=== PATIENT | male | born 1965 | race Caucasian/White ===

== ENCOUNTER → 2016-11-20 | Day surgery (SDC) | payer OTHER ==
[2016-11-08 07:50] VITALS: Ht 182.9 cm; Wt 81.8 kg
[~2016-11-20] VITALS: Ht 182.9 cm; Wt 81.8 kg
[~2016-11-20] MED LIST: ALLO300T2 PO; AMOX875T PO; COLC0.6T54 PO; FLNIN NAE; LIDOCAINE HCL 2% 2 ML VIAL (20MG/ML) ONE; PANT40TA PO; PROPOFOL IV EMULSION 10 MG/ML 20 ML VIAL IV ONE; SALI0.6517 NAE; SODIUM CHLORIDE 0.9% 500ML 500 ML IV ONE; VALA500T60 PO
--- NOTE | 2016-11-20 09:59 | Endo History and Physical ---
History & Physical Date of Service: Nov 20, 2016. Chief Complaint: DYSPHAGIA, WEIGHT LOSS Referring Physician: DR CLIFFORD History of Present Illness Dysphagia, history of Schatzki ring. Past Surgical History Hx Cardiac Surgery: No Hx Internal Defibrillator: No Hx Pacemaker: No Hx Abdominal Surgery: Yes (HERNIA REPAIR) Hx of Implantable Prosthesis: No Hx Post-Op Nausea and Vomiting: No Hx Cancer Surgery: No Hx Thoracic Surgery: No Hx Orthopedic: Yes (LT/RT TKA, LT/RT ELBOW) Hx Urinary Tract Surgery: No Family History None Social History Smoking Status: Current Every Day Smoker Hx Substance Use: No Hx Alcohol Use: No Allergies Coded Allergies: Indomethacin (Verified Allergy, Severe, INDOCIN THROAT SWELLING SEVERE REACTION, 11/20/16) Prednisone (Unverified Allergy, Mild, "CORTICOSTEROID PSYCHOSIS", 11/20/16) Warfarin (Verified Adverse Reaction, Unknown, DIFFICULTY REGULATING LEVELS , 11/20/16) Current Medications Reported Home Medications Medications Dose Route/Sig Max Daily Dose Days Date Category Dose Instructions [place] Nasal (Sodium Chloride) [place] 2 Sprays JOSEPH PRN 11/30/15 Reported Protonix (Pantoprazole Sodium) 40 Mg Tab 40 Mg PO BID PRN 11/30/15 Reported Valtrex (Valacyclovir HCl) 500 Mg Tab 500 Mg PO TID 11/30/15 Reported PRN FOR RECURRENT EPISODES. Colchicine 0.6 Mg Tab 0.6 Mg PO QPM 11/30/15 Reported Zyloprim (Allopurinol) 300 Mg Tab 300 Mg PO QPM 11/30/15 Reported Flonase Nasal [place] * (Fluticasone Propionate) [place] 2 Sprays JOSEPH DAILY PRN 10/24/10 Reported Vital Signs Weight (Kilograms): 81.82 Height (Feet): 6 Height (Inches): 0 Date Time Temp Pulse Resp B/P (MAP) Pulse Ox O2 Delivery O2 Flow Rate FiO2 11/20/16 09:19 37.0 93 18 113/81 (92) 98 Room Air Physical Exam General Appearance: WD/WN, no apparent distress Respiratory/Chest: Auscultation: breath sounds normal, no wheezing Cardiovascular: Heart Auscultation: RRR, no murmurs Abdomen: Inspection & Palpation: soft, no tenderness, guarding & rebound Assessment and Plan EGD today.
--- NOTE | 2016-11-20 10:54 | Anesthesiology Progress Note ---
Anesthesia Post Op Note Date & Time Nov 20, 2016 at 10:54 Vital Signs Pain Intensity: 0 Vital Signs Past 12 Hours Date Time Temp Pulse Resp B/P (MAP) Pulse Ox O2 Delivery O2 Flow Rate FiO2 11/20/16 10:38 70 16 96/58 (71) 93 Room Air 11/20/16 09:19 37.0 93 18 113/81 (92) 98 Room Air Notes Mental Status: alert / awake / arousable, participated in evaluation Pt Amnestic to Procedure: Yes Nausea / Vomiting: adequately controlled Pain: adequately controlled Airway Patency, RR, SpO2: stable & adequate BP & HR: stable & adequate Hydration State: stable & adequate Anesthetic Complications: no major complications apparent
[2016-11-20 11:08] VITALS: BP 97/71; PULSE 61; O2SAT 97
--- NOTE | 2016-11-20 11:09 | Discharge Instructions ---
Endoscopy Patient Instructions Date / Procedure(s) Performed Nov 20, 2016. EGD Allergy Information Coded Allergies: Indomethacin (Verified Allergy, Severe, INDOCIN THROAT SWELLING SEVERE REACTION, 11/20/16) Prednisone (Unverified Allergy, Mild, "CORTICOSTEROID PSYCHOSIS", 11/20/16) Warfarin (Verified Adverse Reaction, Unknown, DIFFICULTY REGULATING LEVELS , 11/20/16) Discharge Date / Findings Nov 20, 2016. Schatzki ring dilated. Small bowel biopsy obtained. Medication Instructions Restart Stopped Medication(s): Restart medications today. Provider Instructions Activity Restrictions - No exercising or heavy lifting for 24 hours. - Do not drink alcohol the day of the procedure. - Do not drive a car or operate machinery until the day after the procedure. - Do not make any important decisions or sign important papers in 24 hours after the procedure. Following Day: - Return to full activity which may include returning to work/school. Diet Clear liquid breakfast and lunch. Then eat your usual diet if not nauseated. Treatment For Common After Affects For mild abdominal pain, bloating, or excessive gas: - Rest - Eat lightly - Lie on right side Follow-Up Information Follow-up with DR CLIFFORD as scheduled Anesthesia Information What You Should Know You have had a procedure that required some medicine to reduce anxiety and discomfort. This treatment is called moderate sedation. After receiving the treatment, you may be sleepy, but you will be able to breathe on your own. The effects of the treatment may last for several hours. Follow these instructions along with Activity/Diet recommendations noted above: * Do NOT do anything where dizziness or clumsiness would be dangerous. * Rest quietly at home today, then you can be up and about tomorrow. * Have a responsible person stay with you the rest of today. * You may have had an I.V. today. If so, you may take the dressing off later today. Recommendations Call your doctor if: * Pain in chest * Trouble breathing * Continuous vomiting for more than 24 hours * Temperature above 101 degrees * Severe abdominal pain or bloating * Pain not relieved by pain medicine ordered * There is increased drainage or redness from any incision * A large amount of rectal bleeding greater than 2-3 tablespoons. (If you had a polyp/s removed or have hemorrhoids, a small amount of blood - from the rectum is to be expected.) * You have any unanswered questions or concerns. IN THE EVENT OF A SERIOUS EMERGENCY, GO TO THE NEAREST EMERGENCY ROOM Your discharge instructions were prepared by provider Dario Seay. Patient Instructions Signature Page Zackary Zhou Patient (or Guardian) Signature/Date: I have read and understand the instructions given to me by my caregivers. Caregiver/RN/Doctor Signature/Date: The above-named patient and/or guardian has received patient instructions on this date. + Original Patient Signature Page (only) stays with chart. Please make copy for patient.
--- NOTE | 2016-11-21 00:14 | GI REPORT ---
Procedure Date: 11/20/2016 10:07 AM Procedure: Upper GI endoscopy Indications: Dysphagia, Weight loss Medicines: Propofol per Anesthesia Complications: No immediate complications. Estimated blood loss: None. Estimated Blood Loss: Estimated blood loss: none. Procedure: Pre-Anesthesia Assessment: - Prior to the procedure, a History and Physical was performed, and patient medications, allergies and sensitivities were reviewed. The patient's tolerance of previous anesthesia was reviewed. - ASA Grade Assessment: III - A patient with severe systemic disease. After obtaining informed consent, the endoscope was passed under direct vision. Throughout the procedure, the patient's blood pressure, pulse, and oxygen saturations were monitored continuously. The scope was introduced through the mouth, and advanced to the third part of the duodenum. Small bowel enteroscopy was deemed necessary. The upper GI endoscopy was accomplished without difficulty. The patient tolerated the procedure well. Findings: A mild Schatzki ring (acquired) was found at the gastroesophageal junction at 36 cm from the incisors. A guidewire was placed and the scope was withdrawn. Dilation was performed with an Tajik dilator with mild resistance at 51 Fr and 54 Fr. There was a mucosal tear at the GE junction. A hiatus hernia was present. The stomach was normal. The examined duodenum was normal. Biopsies for histology were taken with a cold forceps for evaluation of celiac disease. Impression: - Mild Schatzki ring. Dilated. - Hiatus hernia. - Normal stomach. - Normal examined duodenum. Biopsied. Recommendation: - Await pathology results. - Observe patient's clinical course. - Discharge patient to home (with escort). Dario Seay M.D. Dario Seay MD 11/20/2016 10:40:34 AM This report has been signed electronically. Note Initiated On: 11/20/2016 10:07 AM I attest to the content of the Intraoperative Record and orders documented therein, exceptions below
== END | disposition home or self-care (01) ==
LOC: C.GI 09:03
PROVIDERS: ATTEND Internal Medicine Gastroenterology
DX: R13.10 Dysphagia, unspecified (principal); R63.4 Abnormal weight loss; K22.2 Esophageal obstruction; K44.9 Diaphragmatic hernia without obstruction or gangrene; Z87.891 Personal history of nicotine dependence; Z96.653 Presence of artificial knee joint, bilateral; K21.9 Gastro-esophageal reflux disease without esophagitis; Z86.19 Personal history of other infectious and parasitic diseases

== ENCOUNTER → 2017-04-01 | Outpatient (CLI) | payer OTHER ==
[~2017-04-01] MED LIST changes: -AMOX875T PO; -LIDOCAINE HCL 2% 2 ML VIAL (20MG/ML) ONE; -PROPOFOL IV EMULSION 10 MG/ML 20 ML VIAL IV ONE; -SODIUM CHLORIDE 0.9% 500ML 500 ML IV ONE
--- NOTE | 2017-04-01 07:39 | DIAGNOSTIC IMAGING REPORT ---
(BARIUM SWALLOW) ESOPHAGUS CLINICAL HISTORY: R13.10,[id number]. History of esophageal dilatation. COMPARISON STUDY: None FLUOROSCOPY TIME: 1.3 minutes. NUMBER OF FLUOROSCOPIC IMAGES: 21 FINDINGS: The patient swallowed effervescent granules and barium without difficulty. Spot films of the pharynx examination were normal. There is a small sliding hiatal hernia.] [ There is a distal esophageal ring. This did not impede the passage of a one half inch barium tablet. There is minimal nonspecific nodularity of the gastric cardia. IMPRESSION: 1. Small sliding hiatal hernia with a distal esophageal ring. This did not impede the passage of a one half inch barium tablet 2. Minimal nonspecific nodularity of the gastric cardia. Electronically signed by: Antonoi Crow M.D. 04/01/2017 7:37 AM Dictated Date/Time: 04/01/2017 7:34 AM
== END | disposition home or self-care (01) ==
LOC: C.RAD 06:58
PROVIDERS: ATTEND Internal Medicine Gastroenterology
DX: R13.10 Dysphagia, unspecified (principal); R12 Heartburn

== ENCOUNTER 2022-08-21 07:26 | Observation (INO) ==
[2022-08-21] MEDS ORDERED: SODIUM CHLORIDE 0.9% 1000ML 1,000 ML IV ONE (07:52)
--- NOTE | 2022-08-21 08:02 | Emergency Department Note ---
History of Present Illness General Chief complaint: Syncope (Near Syncope) Stated complaint: DIZZINESS,BLACKING OUT Time Seen by Provider: 08/21/22 07:36 History of Present Illness Maximum Pain Intensity: 6 61-year-old male who presents emergency department for evaluation of dizziness and left sided headache. Patient states around 615 this morning he started to feel dizzy and like he was going to pass out. He denies loss of consciousness. He reports associated headache behind his left eye as well as bilateral blurry vision that also started this morning. He states similar episodes have happened in the past and he has a history of low blood pressure. He notes when his blood pressure is low he feels dizzy however symptoms usually self resolve after 2 to 3 minutes. Today they seem to be lasting longer than usual prompting evaluation in the ED. He notes a history of migraines but states this headache does not feel similar. Usually his migraine symptoms are behind both eyes. He has not had one in years. He also reports for the last few days he has felt like both of his hands have reduced ice puller strength. This did seem to start with some neck pain he developed 3 days ago which he related to sleeping wrong. He denies any lower extremity weakness, slurred speech, facial droop, amaurosis fugax, memory loss or confusion. He denies fever/chills, nausea/vomiting, chest pain, shortness of breath, abdominal pain, diarrhea/constipation, urinary symptoms. He is not on any medications other than for gout. He denies drug or alcohol use. Denies previous history of VA or stroke. Home Medications Medication Instructions Recorded Confirmed Type allopurinol 300 mg tablet 300 mg PO DAILY 08/21/22 08/21/22 History colchicine 0.6 mg tablet 0.6 mg PO BID PRN gout flare 08/21/22 08/21/22 History fluticasone propionate 50 2 spray intranasal DAILY 08/21/22 08/21/22 History mcg/actuation nasal spray,suspension pantoprazole 40 mg tablet,delayed 40 mg PO DAILY 08/21/22 08/21/22 History release Allergies Allergy/AdvReac Type Severity Reaction Status Date / Time indomethacin Allergy Severe INDOCIN Verified 11/20/16 09:14 THROAT SWELLING SEVERE REACTION prednisone Allergy Mild "CORTICOSTEROID Unverified 11/20/16 09:14 PSYCHOSIS" warfarin AdvReac Unknown DIFFICULTY Verified 08/23/17 09:14 REGULATING LEVELS Past Med/Surg History Medical History BPH (benign prostatic hyperplasia) Chronic rhinitis Esophageal dysphagia Gout History of Clostridioides difficile infection HSV-2 infection Schatzki's ring Surgical History H/O nasal septoplasty H/O umbilical hernia repair History of bilateral knee arthroplasty History of elbow surgery History of shoulder surgery S/P left knee arthroscopy Family History Mother Cancer Social History Smoking Status: Former smoker Hx Alcohol Use: No Preferred Language: [place] Feels Safe at Home: Yes Physical Exam Vital Signs Vital Signs - 24 hr 08/21/22 07:29 08/21/22 07:52 08/21/22 07:56 Temperature 36.6 C Temperature Source Temporal Artery Scan Pulse Rate - Lying 66 Pulse Rate - Sitting 66 Pulse Rate - Standing 62 Pulse Rate 70 Pulse Rate [Left Finger] 71 Pulse Rhythm [Left Finger] Pulse Strength [Left Finger] Respiratory Rate 18 14 Respiratory Effort / Characteristics Respiratory Depth Respiratory Pattern Blood Pressure - Lying 124/69 Blood Pressure - Sitting 139/89 Blood Pressure- Standing 125/89 Blood Pressure 123/79 Blood Pressure [Left Arm] 124/94 Blood Pressure Mean 93 Blood Pressure Mean [Left Arm] 104 Blood Pressure Position [Left Arm] Sitting Pulse Oximetry 96 92 Oxygen Delivery Method Room Air Sepsis Recent Fever Within 48 Hours No Sepsis New/Unexplained Change in Mental Status N/A Sepsis Action Taken by Nursing No Action Required 08/21/22 08:35 08/21/22 09:21 08/21/22 11:05 Temperature Temperature Source Pulse Rate - Lying Pulse Rate - Sitting Pulse Rate - Standing Pulse Rate 69 Pulse Rate [Left Finger] 65 61 Pulse Rhythm [Left Finger] Regular Regular Pulse Strength [Left Finger] Normal Normal Respiratory Rate 18 20 Respiratory Effort / Characteristics Non-Labored Spontaneous Non-Labored Spontaneous Respiratory Depth Normal Normal Respiratory Pattern Regular Regular Blood Pressure - Lying Blood Pressure - Sitting Blood Pressure- Standing Blood Pressure Blood Pressure [Left Arm] 136/88 128/90 Blood Pressure Mean Blood Pressure Mean [Left Arm] 104 102 Blood Pressure Position [Left Arm] Sitting Sitting Pulse Oximetry 98 98 Oxygen Delivery Method Room Air Room Air Sepsis Recent Fever Within 48 Hours Sepsis New/Unexplained Change in Mental Status Sepsis Action Taken by Nursing Constitutional: alert and oriented x3. no acute distress. HEENT: normocephalic, atraumatic. normal conjunctiva. Pinpoint pupils bilaterally, reactive to light. light sensitivity. EOM's grossly intact. TMs pearly manning without effusion. Pharynx pink without exudate. Tonsils nonenlarged. Mucus membranes moist Neck: neck is supple, nontender. no carotid bruits present bilaterally. Midline C-spine nontender Respiratory: lungs are clear to auscultation without wheezes, rhonchi, or rales bilaterally. equal chest rise. normal respiratory effort, no accessory muscle use. Cardiovascular: normal heart sounds without murmur. regular rate and rhythm. GI: abdomen is soft, nontender. No palpable masses. No rebound tenderness or guarding. No CVA tenderness MSK: Moves all 4 extremities spontaneously. Midline thoracic and lumbar spine nontender Peripheral vascular: Upper extremities warm and well perfused with palpable radial pulses. Sensation intact Neuro: Mild right upper/lower extremity weakness compared to left +3 left upper/lower extremity strength +4. CNII-XII intact. Speech clear, tongue midline, without facial droop. Answers questions appropriately and follows commands. Slow normal finger-nose test. Psych:appropriate mood and affect. Course Administered Medications Sodium Chloride (Nss 1000ml) 1,000 mls @ 999 mls/hr IV .Q1H1M STA Stop: 08/21/22 12:21 Last Admin: 08/21/22 11:22 Dose: 999 mls/hr Documented By: SAFIA Discontinued Medications Acetaminophen/Butalbital/Caffeine (Butalbital/Acetamin/Caffeine Tab) 1 tab PO NOW STA Stop: 08/21/22 10:39 Last Admin: 08/21/22 11:20 Dose: 1 tab Documented By: SAFIA Sodium Chloride (Nss 1000ml) 1,000 mls @ 999 mls/hr IV .Q1H1M ONE Stop: 08/21/22 08:52 Last Admin: 08/21/22 07:58 Dose: 999 mls/hr Documented By: SAFIA Acetaminophen (Ofirmev) 1,000 mg in 100 mls @ 400 mls/hr IV NOW Stop: 08/21/22 10:01 Last Admin: 08/21/22 10:36 Dose: 400 mls/hr Documented By: SAFIA Ioversol (Optiray 320 500ml) 114 ml IV ONCE ONE Stop: 08/21/22 09:19 Last Admin: 08/21/22 09:18 Dose: 114 ml Documented By: BUBBA Medical Decision Making Differential Diagnosis CVA, VA, intracranial hemorrhage, cardiac arrhythmia, electrolyte abnormalities, migraine, infection, vertebral artery dissection, hypotension, hypoglycemia, hypovolemia, cervical muscle strain as well as other pathologies Laboratory Data Attestation: I reviewed the patient's lab results. 08/21/22 07:42 08/21/22 07:42 Lab Results 08/21/22 08/21/22 08/21/22 Range/Units 07:42 07:42 07:42 WBC 6.43 (4.8-10.8) K/ul RBC 5.72 (4.70-6.10) M/uL Hgb 16.3 (14.0-18.0) g/dl Hct 49.7 (42.0-52.0) % MCV 86.9 (80.0-100.0) fL MCH 28.5 (25.0-34.0) pg MCHC 32.8 (32.0-36.0) g/dL RDW Std Deviation 41.9 (36.4-46.3) fL RDW Coeff of Humberto 13.5 (11.5-14.5) % Plt Count 186 (130-400) K/uL MPV 11.2 (9.4-12.4) fL Immature Gran % (Auto) 0.8 % Neut % (Auto) 52.7 % Lymph % (Auto) 30.5 % Childress % (Auto) 10.6 % Eos % (Auto) 3.7 % Baso % (Auto) 1.7 % Neut # (Auto) 3.39 (1.40-6.50) K/uL Lymph # (Auto) 1.96 (1.2-3.4) K/uL Childress # (Auto) 0.68 H (0.11-0.59) K/uL Eos # (Auto) 0.24 (0-0.50) K/uL Baso # (Auto) 0.11 (0-0.2) K/uL Immature Gran # (Auto) 0.05 (0.01-0.20) K/uL PT 10.9 (9.0-12.0) Seconds INR 1.0 (0.9-1.1) APTT 25.6 (21.0-31.0) Seconds PTT Ratio 0.9 Sodium 140 (136-145) mmol/L Potassium 4.0 (3.5-5.1) mmol/L Chloride 103 (98-107) mmol/L Carbon Dioxide 30 (21-32) mmol/L Anion Gap 7 (3-11) BUN 18 (6-23) mg/dl Creatinine 1.08 (0.6-1.4) mg/dl Est Cr Clr Drug Dosing 91.6 ml/min Est GFR ( Amer) 88.5 ml/min Est GFR (Non-Af Amer) 76.3 ml/min BUN/Creatinine Ratio 16.7 (10-20) Glucose 147 H (70-99(Fasting)) mg/dl Calcium 9.8 (8.6-10.3) mg/dl Total Bilirubin 0.5 (0.2-1.0) mg/dl AST 32 (13-39) U/L ALT 53 H (7-52) U/L Alkaline Phosphatase 67 (34-104) U/L Troponin I High Sens 3.3 (0-20) pg/ml Total Protein 7.5 (6.0-8.3) gm/dl Albumin 4.6 (3.4-5.0) gm/dl Globulin 2.9 (2.5-4.0) gm/dl Albumin/Globulin Ratio 1.6 (0.9-2) Urine Color Urine Appearance (Clear) Urine pH (4.5-7.5) Ur Specific Sutton (1.000-1.030) Urine Protein (Negative) Urine Glucose (UA) (Negative) Urine Ketones (Negative) Urine Blood (Negative) Urine Nitrite (Negative) Urine Bilirubin (Negative) Urine Urobilinogen (Negative) Ur Leukocyte Esterase (Negative) SARS-CoV-2, RNA, NAAT (NEGATIVE) 08/21/22 08/21/22 Range/Units 07:42 Unknown WBC (4.8-10.8) K/ul RBC (4.70-6.10) M/uL Hgb (14.0-18.0) g/dl Hct (42.0-52.0) % MCV (80.0-100.0) fL MCH (25.0-34.0) pg MCHC (32.0-36.0) g/dL RDW Std Deviation (36.4-46.3) fL RDW Coeff of Humberto (11.5-14.5) % Plt Count (130-400) K/uL MPV (9.4-12.4) fL Immature Gran % (Auto) % Neut % (Auto) % Lymph % (Auto) % Childress % (Auto) % Eos % (Auto) % Baso % (Auto) % Neut # (Auto) (1.40-6.50) K/uL Lymph # (Auto) (1.2-3.4) K/uL Childress # (Auto) (0.11-0.59) K/uL Eos # (Auto) (0-0.50) K/uL Baso # (Auto) (0-0.2) K/uL Immature Gran # (Auto) (0.01-0.20) K/uL PT (9.0-12.0) Seconds INR (0.9-1.1) APTT (21.0-31.0) Seconds PTT Ratio Sodium (136-145) mmol/L Potassium (3.5-5.1) mmol/L Chloride (98-107) mmol/L Carbon Dioxide (21-32) mmol/L Anion Gap (3-11) BUN (6-23) mg/dl Creatinine (0.6-1.4) mg/dl Est Cr Clr Drug Dosing ml/min Est GFR ( Amer) ml/min Est GFR (Non-Af Amer) ml/min BUN/Creatinine Ratio (10-20) Glucose (70-99(Fasting)) mg/dl Calcium (8.6-10.3) mg/dl Total Bilirubin (0.2-1.0) mg/dl AST (13-39) U/L ALT (7-52) U/L Alkaline Phosphatase (34-104) U/L Troponin I High Sens (0-20) pg/ml Total Protein (6.0-8.3) gm/dl Albumin (3.4-5.0) gm/dl Globulin (2.5-4.0) gm/dl Albumin/Globulin Ratio (0.9-2) Urine Color Yellow Urine Appearance Clear (Clear) Urine pH 6.5 (4.5-7.5) Ur Specific Sutton 1.045 H (1.000-1.030) Urine Protein Negative (Negative) Urine Glucose (UA) Negative (Negative) Urine Ketones Negative (Negative) Urine Blood Negative (Negative) Urine Nitrite Negative (Negative) Urine Bilirubin Negative (Negative) Urine Urobilinogen Negative (Negative) Ur Leukocyte Esterase Negative (Negative) SARS-CoV-2, RNA, NAAT NEGATIVE (NEGATIVE) Imaging Data My Impression: Chest x-ray personally reviewed and per my interpretation is without focal consolidation, pleural effusion, pneumothorax Radiologist's Impression: Chest X-Ray 08/21/22 07:51 XR chest 1V portable HISTORY: dizziness COMPARISON: Chest 11/30/2015. FINDINGS: The lungs are clear. The cardiac silhouette is top normal in size. No pleural effusions. No pneumothorax. There is a small to moderate hiatus hernia. IMPRESSION: 1. No acute process within the chest. 2. Small to moderate hiatus hernia. ACT 112: Negative or not required by law. Electronically signed by: Donald Rey M.D. 08/21/2022 8:[address] 08/21/22 07:51 CT angio neck with con, CT angio head w con, CT head/brain wo con CLINICAL HISTORY: dizziness blurry vision right sided weakness TECHNIQUE: Contiguous axial CT images of the head were acquired from the base of the skull to the vertex without intravenous contrast administration. CT angiography of the head and neck was performed following intravenous administration of iodinated contrast. Coronal and sagittal MIPS were obtained from the axial data set and were submitted for review. Automated dose lowering techniques and/or adjustment according to patient size were utilized for this examination. All measurements were calculated based on NASCET criteria. CT DOSE: 1116.53 mGy.cm Comparison: None available at the time of this dictation. FINDINGS: CT head: Areas of decreased attenuation are present in the periventricular and subcortical white matter bilaterally consistent with small vessel ischemic disease. Generalized cerebral atrophy with commensurate enlargement of the ventricles, sulci, and cisterns is also present. There is no acute intracranial hemorrhage or evidence of acute territorial infarction. No shift of the midline structures, mass effect, or extra-axial abnormalities are shown. Atherosclerotic calcifications are present in the intracranial segments of the internal carotid arteries. There is a left retention cyst. Lungs and soft tissues are unremarkable. CTA Neck: A 3 vessel aortic arch is shown. There is no significant atherosclerotic plaque in the aortic arch or the origins of the innominate, left common carotid, and left subclavian arteries. The common carotid, external carotid, cervical segments of the internal carotid arteries, and the cervical segments of the vertebral arteries are patent without hemodynamically significant stenosis. The right vertebral artery is dominant. The left vertebral artery is diminutive and tortuous. CTA Head: The anterior and posterior cerebral circulations are patent. No hemodynamically significant stenosis, aneurysm, dissection, or arteriovenous malformation is shown. IMPRESSION: 1. No acute intracranial hemorrhage, evidence of acute territorial infarction, or other acute intracranial disease process. 2. No occlusion, hemodynamically significant stenosis, or dissection in the major cervical arteries. 3. No occlusion, hemodynamically significant stenosis, aneurysm, dissection, or arteriovenous malformation in the major intracranial arteries. Assessment of stenosis of the internal carotid arteries is based on NASCET criteria. ACT 112: Negative or not required by law. Electronically signed by: David Whiting M.D. 08/21/2022 9:43 AM Head CTA 08/21/22 07:51 CT angio neck with con, CT angio head w con, CT head/brain wo con CLINICAL HISTORY: dizziness blurry vision right sided weakness TECHNIQUE: Contiguous axial CT images of the head were acquired from the base of the skull to the vertex without intravenous contrast administration. CT angiography of the head and neck was performed following intravenous administration of iodinated contrast. Coronal and sagittal MIPS were obtained from the axial data set and were submitted for review. Automated dose lowering techniques and/or adjustment according to patient size were utilized for this examination. All measurements were calculated based on NASCET criteria. CT DOSE: 1116.53 mGy.cm Comparison: None available at the time of this dictation. FINDINGS: CT head: Areas of decreased attenuation are present in the periventricular and subcortical white matter bilaterally consistent with small vessel ischemic di sease. Generalized cerebral atrophy with commensurate enlargement of the ventricles, sulci, and cisterns is also present. There is no acute intracranial hemorrhage or evidence of acute territorial infarction. No shift of the midline structures, mass effect, or extra-axial abnormalities are shown. A therosclerotic calcifications are present in the intracranial segments of the internal carotid arteries. There is a left retention cyst. Lungs and soft tissues are unremarkable. CTA Neck: A 3 vessel aortic arch is shown. There is no significant at herosclerotic plaque in the aortic arch or the origins of the innominate, left common carotid, and left subclavian arteries. The common carotid, external carotid, cervical segments of the internal carotid arteries, and the cervical segments of the vertebral arteries are patent without hemodynamically significant stenosis. The right vertebral artery is dominant. The left vertebral artery is diminutive and tortuous. CTA Head: The anterior and posterior cerebral circulations are patent. No hemodynamically significant stenosis, aneurysm, dissection, or arteriovenous ma lformation is shown. IMPRESSION: 1. No acute intracranial hemorrhage, evidence of acute territorial infarction, or other acute intracranial disease process. 2. No occlusion, hemodynamically significant stenosis, or dissection in the major cervical arteries. 3. No occlusion, hemodynamically significant stenosis, aneurysm, dissection, or arteriovenous malformation in the major intracranial arteries. Assessment of stenosis of the internal carotid arteries is based on NASCET criteria. ACT 112: Negative or not required by law. Electronically signed by: David Whiting M.D. 08/21/2022 9:43 AM Neck CTA 08/21/22 07:51 CT angio neck with con, CT angio head w con, CT head/brain wo con CLINICAL HISTORY: dizziness blurry vision right sided weakness TECHNIQUE: Contiguous axial CT images of the head were acquired from the base of the skull to the vertex without intravenous contrast administration. CT angiography of the head and neck was performed following intravenous administration of iodinated contrast. Coronal and sagittal MIPS were obtained from the axial data set and were submitted for review. Automated dose lowering techniques and/or adjustment according to patient size were utilized for this examination. All measurements were calculated based on NASCET criteria. CT DOSE: 1116.53 mGy.cm Comparison: None available at the time of this dictation. FINDINGS: CT head: Areas of decreased attenuation are present in the periventricular and subcortical white matter bilaterally consistent with small vessel ischemic disease. Generalized cerebral atrophy with commensurate enlargement of the ventricles, sulci, and cisterns is also present. There is no acute intracranial hemorrhage or evidence of acute territorial infarction. No shift of the midline structures, mass effect, or extra-axial abnormalities are shown. Atherosclerotic calcifications are present in the intracranial segments of the internal carotid arteries. There is a left retention cyst. Lungs and soft tissues are unremarkable. CTA Neck: A 3 vessel aortic arch is shown. There is no significant atherosclerotic plaque in the aortic arch or the origins of the innominate, left common carotid, and left subclavian arteries. The common carotid, external carotid, cervical segments of the internal carotid arteries, and the cervical segments of the vertebral arteries are patent without hemodynamically significant stenosis. The right vertebral artery is dominant. The left vertebral artery is diminutive and tortuous. CTA Head: The anterior and posterior cerebral circulations are patent. No hemodynamically significant stenosis, aneurysm, dissection, or arteriovenous malformation is shown. IMPRESSION: 1. No acute intracranial hemorrhage, evidence of acute territorial infarction, or other acute intracranial disease process. 2. No occlusion, hemodynamically significant stenosis, or dissection in the major cervical arteries. 3. No occlusion, hemodynamically significant stenosis, aneurysm, dissection, or arteriovenous malformation in the major intracranial arteries. Assessment of stenosis of the internal carotid arteries is based on NASCET criteria. ACT 112: Negative or not required by law. Electronically signed by: David Whiting M.D. 08/21/2022 9:43 AM MDM Narrative 57-year-old male who presents emergency department for evaluation of dizziness, left ocular headache, upper extremity weakness. Review of pertinent visits and past medical history performed. Vital signs in ED within normal limits, afebrile. IV access was established and labs were obtained. CBC without leukocytosis or acute anemia. CMP without significant electrolyte abnormalities. Renal function within normal limits. LFTs unremarkable. Troponin negative. EKG demonstrates normal sinus rhythm at a rate of 66 bpm without evidence of ischemic changes. Urinalysis without evidence of infection or blood. Given presentation, head CT as well as CTA of head/neck were obtained to rule out stroke or other intracranial pathology. These were personally reviewed as well as interpreted by radiology and without evidence of acute infarct, hemorrhage, mass. No evidence of hemodynamically significant stenosis, aneurysm, dissection. Clinically, patient is nontoxic-appearing in no acute distress. He is lying in bed comfortably eyes shut secondary to dizziness and left eye pain. Bilateral pupils are constricted but reactive to light. He has light sensitivity on exam. There is no facial droop, tongue is midline. Speech is clear. Answers questions appropriately and follows commands. There is mild right upper and lower extremity weakness when compared to the left. Normal cerebellar function tests. Remainder of physical exam unremarkable. Patient was treated with 1 L IV fluids. Patient was reevaluated on multiple occasions. He continues to report left ocular headache which is unchanged. No new neurological deficits. Vital signs remained stable within normal limits. He is placed on a monitor car operator which demonstrates normal sinus rhythm at a rate of 60 to 70 bpm. Respirations are nonlabored and he is maintaining adequate O2 sats at 98% on room air. Patient was provided with IV Tylenol for headache following results of head CT. He was updated on all exam findings and test results. Case was discussed with attending, Dr. Dunlap. At this time, given left ocular headache as well as right-sided focal weakness, I am recommending admission to the hospital for furt her secondary work-up and likely MRI of the brain to rule out CVA. Patient verbalized understanding and agreeable to this. Case was discussed with hospitalist, Jesica WADSWORTH, who graciously accepted patient to their service for further work up and management. He was admitted in stable condition. Impression & Plan Acute right-sided weakness, Headache, Dizziness Discharge Plan Visit Data Chief Complaint: Syncope (Near Syncope) Stated Complaint: DIZZINESS,BLACKING OUT ED Provider: Oswaldo Dunlap ED Midlevel Provider: Allie Witt Discharge Problem: Acute right-sided weakness, Headache, Dizziness Patient Disposition: Admitted As Inpatient Forms Stand Alone Forms: [facility] Prescriptions Prescriptions: No Action pantoprazole 40 mg tablet,delayed release (DR/EC) 40 mg PO DAILY allopurinol 300 mg tablet 300 mg PO DAILY colchicine 0.6 mg tablet 0.6 mg PO BID PRN (Reason: gout flare) fluticasone propionate 50 mcg/actuation spray,suspension 2 spray INTRANASAL DAILY Referrals Referrals: Arlette Hedrick MD [Outside Practitioners] -
[2022-08-21 08:08] LABS: Basophils # (auto) 0.11 K/uL (0-0.2); Basophils % (auto) 1.7 %; Eosinophils # (auto) 0.24 K/uL (0-0.50); Eosinophils % (auto) 3.7 %; Hematocrit (blood only) 49.7 % (42.0-52.0); Hemoglobin 16.3 g/dl (14.0-18.0); Immature Granulocytes # (auto) 0.05 K/uL (0.01-0.20); Immature Granulocytes % (auto) 0.8 %; Lymphocytes # (auto) 1.96 K/uL (1.2-3.4); Lymphocytes % (auto) 30.5 %; Mean Corpuscular Hemoglobin 28.5 pg (25.0-34.0); Mean Corpuscular Hgb Conc 32.8 g/dL (32.0-36.0); Mean Corpuscular Volume 86.9 fL (80.0-100.0); Mean Platelet Volume 11.2 fL (9.4-12.4); Monocytes # (auto) 0.68 K/uL (0.11-0.59); Monocytes % (auto) 10.6 %; Neutrophils # (auto) 3.39 K/uL (1.40-6.50); Neutrophils % (auto) 52.7 %; Platelet Count 186 K/uL (130-400); RDW Coefficient of Variation 13.5 % (11.5-14.5); RDW Standard Deviation 41.9 fL (36.4-46.3); Red Blood Count 5.72 M/uL (4.70-6.10); White Blood Count 6.43 K/ul (4.8-10.8)
[2022-08-21 08:29] LABS: Albumin Globulin Ratio 1.6 (0.9-2); Albumin Level 4.6 gm/dl (3.4-5.0); BUN Creatinine Ratio 16.7 (10-20); Bilirubin,Total 0.5 mg/dl (0.2-1.0); Calcium 9.8 mg/dl (8.6-10.3); Creatinine Clr Calc Pharmacy 91.6 ml/min; Est GFR (African American) 88.5 ml/min; Est GFR (Non-African American) 76.3 ml/min; Globulin 2.9 gm/dl (2.5-4.0); Total Protein 7.5 gm/dl (6.0-8.3)
[2022-08-21 08:37] LABS: Troponin I High Sensitivity 3.3 pg/ml (0-20)
--- NOTE | 2022-08-21 08:38 | XRay Report ---
XR chest 1V portable HISTORY: dizziness COMPARISON: Chest 11/30/2015. FINDINGS: The lungs are clear. The cardiac silhouette is top normal in size. No pleural effusions. No pneumothorax. There is a small to moderate hiatus hernia. IMPRESSION: 1. No acute process within the chest. 2. Small to moderate hiatus hernia. ACT 112: Negative or not required by law. Electronically signed by: Donald Rey M.D. 08/21/2022 8:36 AM
[2022-08-21 08:40] LABS: Partial Thromboplastin Ratio 0.9; Partial Thromboplastin Time 25.6 Seconds (21.0-31.0); Prothrombin Time 10.9 Seconds (9.0-12.0)
[2022-08-21] MEDS ORDERED: OPTIRAY 320 500ml IV ONE (09:18)
[2022-08-21 09:35] LABS: Appearance Urine Clear (Clear); Bilirubin Urine Negative (Negative); Blood Urine Negative (Negative); Color Urine Yellow; Glucose Urine UA Negative (Negative); Ketones Urine Negative (Negative); Leukocyte Esterase Urine Negative (Negative); Nitrite Urine Negative (Negative); Protein Urine Negative (Negative); Specific Gravity Urine 1.045 (1.000-1.030); Urobilinogen Urine Negative (Negative); pH Urine 6.5 (4.5-7.5)
--- NOTE | 2022-08-21 09:44 | CT Scan Report ---
CT angio neck with con, CT angio head w con, CT head/brain wo con CLINICAL HISTORY: dizziness blurry vision right sided weakness TECHNIQUE: Contiguous axial CT images of the head were acquired from the base of the skull to the gerard cathi without intravenous contrast administration. CT angiography of the head and neck was performed f ollowing intravenous administration of iodinated contrast. Coronal and sagittal MIPS were obtained fr om the axial data set and were submitted for review. Automated dose lowering techniques and/or adjus tment according to patient size were utilized for this examination. All measurements were calculated based on NASCET criteria. CT DOSE: 1116.53 mGy.cm Comparison: None available at the time of this dictation. FINDINGS: CT head: Areas of decreased attenuation are present in the periventricular and subcortical white delilah er bilaterally consistent with small vessel ischemic disease. Generalized cerebral atrophy with comme nsurate enlargement of the ventricles, sulci, and cisterns is also present. There is no acute intracr anial hemorrhage or evidence of acute territorial infarction. No shift of the midline structures, mas s effect, or extra-axial abnormalities are shown. Atherosclerotic calcifications are present in the intracranial segments of the internal carotid arteries. There is a left retention cyst. Lungs and soft tissues are unremarkable. CTA Neck: A 3 vessel aortic arch is shown. There is no significant atherosclerotic plaque in the aor tic arch or the origins of the innominate, left common carotid, and left subclavian arteries. The co mmon carotid, external carotid, cervical segments of the internal carotid arteries, and the cervical segments of the vertebral arteries are patent without hemodynamically significant stenosis. The right vertebral artery is dominant. The left vertebral artery is diminutive and tortuous. CTA Head: The anterior and posterior cerebral circulations are patent. No hemodynamically significan t stenosis, aneurysm, dissection, or arteriovenous malformation is shown. IMPRESSION: 1. No acute intracranial hemorrhage, evidence of acute territorial infarction, or other acute intrac ranial disease process. 2. No occlusion, hemodynamically significant stenosis, or dissection in the major cervical arteries. 3. No occlusion, hemodynamically significant stenosis, aneurysm, dissection, or arteriovenous malfor mation in the major intracranial arteries. Assessment of stenosis of the internal carotid arteries is based on NASCET criteria. ACT 112: Negative or not required by law. Electronically signed by: David Whiting M.D. 08/21/2022 9:43 AM
[2022-08-21] MEDS ORDERED: ACETAMINOPHEN 1,000 MG/100 ML VIAL IV STA (09:47)
[2022-08-21] MEDS ORDERED: BUTALBITAL/ACETAMIN/CAFFEINE TAB PO STA (10:38)
--- NOTE | 2022-08-21 11:05 | Communication Note ---
Date of Service: August 21, 2022 ATTENDING ADDENDUM: 57-year-old man presented for evaluation of lightheadedness and an acute left- sided headache. The patient reports an onset of his "typical" dizziness which is described as feeling as if he work in a pass out. This has been ongoing for a long time and has not been worked up in the past per his report. Although he did not lose consciousness he was unable to function at work. His headache is described as an ice pick behind his left eye and is associated with blurry vision that is worse on the left. The pain doesn't radiate. The headache is also present in the left posterior region. He wears glasses at baseline and his vision appears to be at baseline in the right. He has numbness in his lateral 3 fingers on the right arm and generalized numbness will/decree sensation in the upper right arm. There were no sensation issues in his face. He has no swallowing issues. He reports that his mother had glaucoma. He has Ortho statics were checked and were positive with patient becoming symptomatic with position change. He is a long smoker who quit in May with Chantix. He exhibited a period of less than 5 seconds of myoclonic jerking of the left leg during the examination. He never lost consciousness or became unresponsive. This myoclonic jerking is "typical" for him and has been ongoing for years. He reports waking up in the morning and having headaches almost every day and not feeling rested. He denies ever having a sleep study in the past. He reports taking a Goody powder for headaches 2-3 times weekly. It is noted in the chart that he has an NSAID allergy with throat swelling as a side effect. LYIN/99 P59 SITTIN/102 P 55 STANDIN/90 68 +orthostatic symptoms Physical exam: VS as above, oxygenating well on RA, afebrile Generally in the dark, holding his head on the left over his eye. +photophobic, WNWD Eyes: normal conjunctivae, left funduscopic exam was unable to be performed 2/2 photophobia and patient unable to cooperate with exam 2/2 pain from the light. right funduscopic exam was performed and normal. PERRL. EOMI with no pain with eye movements. HEENT: NC/AT, OP normal with mucous membranes moist NECK: no tracheal deviation CV: reg rate and rhythm, S1.2 heard, no murmurs, no peripheral edema LUNGS: clear to auscultation throughout, normal respiratory effort. ABD: soft NTND NEURO: sensation different in the RUE and RLE compared with the left side. 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 Ambulatory Chest x-ray reveals no acute process, head CT along with angiogram of head and neck revealed no acute intracranial hemorrhage, no evidence of acute territorial infarction or other intracranial disease process. There is no occlusion hemodynamically significant stenosis or dissection in the major cervical arteries or the major intracranial arteries. CBC, PT/INR, chemistry is within normal limits. Liver panel is within normal limits. Urinalysis reveals no evidence of infection or proteinuria. COVID screening is negative. A/P: Lightheadedness with new onset right sided weakness and right hand numbness and left eye pain/LYONS. Differential includes but not limited to stroke, TIA, acute glaucoma, complicated migraine, acute glaucoma, optic neuritis, MS, acute CRAO/CRVO, orthostatic hypotension. -agree with brain MRI, ophtho and neurology appt -Low risk TIA symptoms present-will hold off on loading with Plavix, but given his ASA allergy will give Plavix 75mg once now and daily and Lipitor 80mg now -Lipid panel and A1C in am -NSS 1L bolus now and repeat orthostatics qshift. -monitor on telemetry Loretta Mack DO [facility]
--- NOTE | 2022-08-21 11:18 | History & Physical Report ---
Date of Service August 21, 2022 Assessment & Plan (1) Acute right-sided weakness: (2) Headache: (3) Left eye pain: Plan: Admit to tele Patient presenting for evaluation of lightheadedness, dizziness, headache/left eye pain. In the ED, patient reports generalized weakness however slightly worse on the right and right hand tingling -- no focal deficit appreciated on exam. Head CT, head and neck CTA unremarkable Brain MRI unremarkable ? TIA vs. complex migraine Risk factor for TIA - former smoker (quit 05/2022) Will give Plavix 75mg and atorvastatin 80mg x 1 today -- appreciate further recs from Neuro. Noted unable to give ASA due to NSAID allergy (throat swelling). Neuro consult Ocular pressures obtained by ED provider - right eye 14, left eye 22 Given ongoing eye pain, will consult Optho - case discussed with Dr. Vila (4) Orthostasis: Plan: Patient reports monthly episodes of orthostasis + orthostatics noted IVF, continue to follow orthostatics (5) Esophageal dysphagia: (6) Schatzki's ring: Plan: S/p dilation, continue PPI (7) Gout: Plan: Continue allopurinol DVT PROPHYLAXIS SCDs Patient seen in collaboration with Dr. Mack. I spent a total of 75 minutes coordinating, documenting, and providing care for this patient excluding time spent in the performance of separately billed services. This included personally reviewing all current laboratories and imaging studies, medication reconciliation, outpatient chart review, and discussion with specialists. History of Present Illness Chief Complaint: Lightheaded, dizzy, left eye pain Primary Care Provider: Desean Raymond MD 57-year-old male with PMH gout, GERD, Schatzki's ring s/p dilation, BPH, and other problems listed below who presents to the ED for evaluation of lightheadedness, dizziness, left eye pain. History obtained from the patient and review of outpatient PCP records. Patient reports he was at work this morning when he had onset of lightheadedness and dizziness. Patient states this is not uncommon for him when he stands too quickly. Patient states that he usually will sit down and symptoms all resolved. Patient reports the lightheadedness and dizziness was much worse today and he also had associated left eye pain and generalized weakness. Patient then came to the ED for further evaluation. Patient reports he initially had blurry vision which has since resolved. Reports he otherwise has been feeling well recently. No other recent illnesses, fevers, chills. Denies abdominal pain, nausea, vomiting, diarrhea. No chest pain or shortness of breath. Denies urinary symptoms. In the ED, patient is hemodynamically stable, labs are unremarkable. Head CT, head and neck CTAs unremarkable as well. Patient was given IVF and IV Tylenol. Allergies Allergy/AdvReac Type Severity Reaction Status Date / Time indomethacin Allergy Severe INDOCIN Verified 11/20/16 09:14 THROAT SWELLING SEVERE REACTION prednisone Allergy Mild "CORTICOSTEROID Unverified 11/20/16 09:14 PSYCHOSIS" warfarin AdvReac Unknown DIFFICULTY Verified 11/20/16 09:14 REGULATING LEVELS Home Medications Medication Instructions Recorded Confirmed Type allopurinol 300 mg tablet 300 mg PO DAILY 08/21/22 08/21/22 History colchicine 0.6 mg tablet 0.6 mg PO BID PRN gout flare 08/21/22 08/21/22 History fluticasone propionate 50 2 spray intranasal DAILY 08/21/22 08/21/22 History mcg/actuation nasal spray,suspension pantoprazole 40 mg tablet,delayed 40 mg PO DAILY 08/21/22 08/21/22 History release Past Med/Surg History Medical History BPH (benign prostatic hyperplasia) Chronic rhinitis Esophageal dysphagia Gout History of Clostridioides difficile infection HSV-2 infection Schatzki's ring Surgical History H/O nasal septoplasty H/O umbilical hernia repair History of bilateral knee arthroplasty History of elbow surgery History of shoulder surgery S/P left knee arthroscopy Family History Mother Cancer Social History Smoking Status: Former smoker Hx Alcohol Use: No Preferred Language: Georgian Feels Safe at Home: Yes Review of Systems Review of Systems: ROS per HPI, all other systems reviewed and negative Physical Exam Constitutional: WD/WN, vitals as above appears uncomfortable, hand grabbing over left eye Eyes: + anicteric sclerae, PERRL and EOM intact bilaterally ENMT: external ear and nose normal, oropharynx normal Respiratory: normal respiratory effort, lungs clear to auscultation Cardiovascular: Rate/Rhythm: regular rate and regular rhythm Vessels: normal peripheral pulses Extremities: no edema Gastrointestinal (Abdomen): normal bowel sounds, soft, nontender, no hepatosplenomegaly Musculoskeletal: no cyanosis or clubbing, extremities motor strength 5/5 Skin: no rashes, warm and dry Neurologic: subjectively reports right sided weakness however no focal deficit appreciated on exam Results & Data Results & Data Vital Signs (Past 12 Hours) Vital Signs Temp Pulse Pulse Resp BP BP Pulse Ox 08/21/22 11:05 61 20 128/90 98 08/21/22 09:21 65 18 136/88 98 08/21/22 08:35 69 08/21/22 07:52 71 14 124/94 92 08/21/22 07:29 36.6 C 70 18 123/79 96 O2 Del Method 08/21/22 11:05 Room Air 08/21/22 09:21 Room Air 08/21/22 08:35 08/21/22 07:52 Room Air 08/21/22 07:29 Laboratory Results Short CBC 08/21/22 Range/Units 07:42 WBC 6.43 (4.8-10.8) K/ul Hgb 16.3 (14.0-18.0) g/dl Hct 49.7 (42.0-52.0) % Plt Count 186 (130-400) K/uL BMP 08/21/22 07:42 Sodium 140 Potassium 4.0 Chloride 103 Carbon Dioxide 30 BUN 18 Creatinine 1.08 Glucose 147 H Calcium 9.8 Liver Function 08/21/22 Range/Units 07:42 Total Bilirubin 0.5 (0.2-1.0) mg/dl AST 32 (13-39) U/L ALT 53 H (7-52) U/L Alkaline Phosphatase 67 (34-104) U/L Albumin 4.6 (3.4-5.0) gm/dl Urine 08/21/22 Range/Units 07:42 Urine Color Yellow Urine Appearance Clear (Clear) Urine pH 6.5 (4.5-7.5) Ur Specific [place] 1.045 H (1.000-1.030) Urine Protein Negative (Negative) Urine Glucose (UA) Negative (Negative) Diagnostic Findings Chest X-Ray 08/21/22 07:51 XR chest 1V portable HISTORY: dizziness COMPARISON: Chest 11/30/2015. FINDINGS: The lungs are clear. The cardiac silhouette is top normal in size. No pleural effusions. No pneumothorax. There is a small to moderate hiatus hernia. IMPRESSION: 1. No acute process within the chest. 2. Small to moderate hiatus hernia. ACT 112: Negative or not required by law. Electronically signed by: Donald Rey M.D. 08/21/2022 8:[address] 08/21/22 07:51 CT angio neck with con, CT angio head w con, CT head/brain wo con CLINICAL HISTORY: dizziness blurry vision right sided weakness TECHNIQUE: Contiguous axial CT images of the head were acquired from the base of the skull to the vertex without intravenous contrast administration. CT angiography of the head and neck was performed following intravenous administration of iodinated contrast. Coronal and sagittal MIPS were obtained from the axial data set and were submitted for review. Automated dose lowering techniques and/or adjustment according to patient size were utilized for this examination. All measurements were calculated based on NASCET criteria. CT DOSE: 1116.53 mGy.cm Comparison: None available at the time of this dictation. FINDINGS: CT head: Areas of decreased attenuation are present in the periventricular and subcortical white matter bilaterally consistent with small vessel ischemic disease. Generalized cerebral atrophy with commensurate enlargement of the ventricles, sulci, and cisterns is also present. There is no acute intracranial hemorrhage or evidence of acute territorial infarction. No shift of the midline structures, mass effect, or extra-axial abnormalities are shown. Atherosclerotic calcifications are present in the intracranial segments of the internal carotid arteries. There is a left retention cyst. Lungs and soft tissues are unremarkable. CTA Neck: A 3 vessel aortic arch is shown. There is no significant atherosclerotic plaque in the aortic arch or the origins of the innominate, left common carotid, and left subclavian arteries. The common carotid, external carotid, cervical segments of the internal carotid arteries, and the cervical segments of the vertebral arteries are patent without hemodynamically significant stenosis. The right vertebral artery is dominant. The left vertebral artery is diminutive and tortuous. CTA Head: The anterior and posterior cerebral circulations are patent. No hemodynamically significant stenosis, aneurysm, dissection, or arteriovenous malformation is shown. IMPRESSION: 1. No acute intracranial hemorrhage, evidence of acute territorial infarction, or other acute intracranial disease process. 2. No occlusion, hemodynamically significant stenosis, or dissection in the major cervical arteries. 3. No occlusion, hemodynamically significant stenosis, aneurysm, dissection, or arteriovenous malformation in the major intracranial arteries. Assessment of stenosis of the internal carotid arteries is based on NASCET criteria. ACT 112: Negative or not required by law. Electronically signed by: David Whiting M.D. 08/21/2022 9:43 AM Head CTA 08/21/22 07:51 CT angio neck with con, CT angio head w con, CT head/brain wo con CLINICAL HISTORY: dizziness blurry vision right sided weakness TECHNIQUE: Contiguous axial CT images of the head were acquired from the base of the skull to the vertex without intravenous contrast administration. CT angiography of the head and neck was performed following intravenous administration of iodinated contrast. Coronal and sagittal MIPS were obtained from the axial data set and were submitted for review. Automated dose lowering techniques and/or adjustment according to patient size were utilized for this examination. All measurements were calculated based on NASCET criteria. CT DOSE: 1116.53 mGy.cm Comparison: None available at the time of this dictation. FINDINGS: CT head: Areas of decreased attenuation are present in the periventricular and subcortical white matter bilaterally consistent with small vessel ischemic disease. Generalized cerebral atrophy with commensurate enlargement of the ventricles, sulci, and cisterns is also present. There is no acute intracranial hemorrhage or evidence of acute territorial infarction. No shift of the midline structures, mass effect, or extra-axial abnormalities are shown. Atherosclerotic calcifications are present in the intracranial segments of the internal carotid arteries. There is a left retention cyst. Lungs and soft tissues are unremarkable. CTA Neck: A 3 vessel aortic arch is shown. There is no significant athero sclerotic plaque in the aortic arch or the origins of the innominate, left common carotid, and left subclavian arteries. The common carotid, external carotid, cervical segments of the internal carotid arteries, and the cervical segments of the vertebral arteries are patent without hemodynamically significant stenosis. The right vertebral artery is dominant. The left vertebral artery is diminutive and tortuous. CTA Head: The anterior and posterior cerebral circulations are patent. No hemodynamically significant stenosis, aneurysm, dissection, or arteriovenous malformation is shown. IMPRESSION: 1. No acute intracranial hemorrhage, evidence of acute territorial infarction, or other acute intracranial disease process. 2. No occlusion, hemodynamically significant stenosis, or dissection in the major cervical arteries. 3. No occlusion, hemodynamically significant stenosis, aneurysm, dissection, or arteriovenous malformation in the major intracranial arteries. Assessment of stenosis of the internal carotid arteries is based on NASCET criteria. ACT 112: Negative or not required by law. Electronically signed by: David Whiting M.D. 08/21/2022 9:43 AM Neck CTA 08/21/22 07:51 CT angio neck with con, CT angio head w con, CT head/brain wo con CLINICAL HISTORY: dizziness blurry vision right sided weakness TECHNIQUE: Contiguous axial CT images of the head were acquired from the base of the skull to the vertex without intravenous contrast administration. CT angiography of the head and neck was performed following intravenous administra tion of iodinated contrast. Coronal and sagittal MIPS were obtained from the axial data set and were submitted for review. Automated dose lowering techniques and/or adjustment according to patient size were utilized for this examination. All measurements were calculated based on NASCET criteria. CT DOSE: 1116.53 mGy.cm Comparison: None available at the time of this dictation. FINDINGS: CT head: Areas of decreased attenuation are present in the periventricular and subcortical white matter bilaterally consistent with small vessel ischemic disease. Generalized cerebral atrophy with commensurate enlargement of the ventricles, sulci, and cisterns is also present. There is no acute intracranial hemorrhage or evidence of acute territorial infarction. No shift of the midline structures, mass effect, or extra-axial abnormalities are shown. Atherosclerotic calcifications are present in the intracranial segments of the internal carotid arteries. There is a left retention cyst. Lungs and soft tissues are unremarkable. CTA Neck: A 3 vessel aortic arch is shown. There is no significant atherosclerotic plaque in the aortic arch or the origins of the innominate, left common carotid, and left subclavian arteries. The common carotid, external carotid, cervical segments of the internal carotid arteries, and the cervical segments of the vertebral arteries are patent without hemodynamically significant stenosis. The right vertebral artery is dominant. The left vertebral artery is diminutive and tortuous. CTA Head: The anterior and posterior cerebral circulations are patent. No hemodynamically significant stenosis, aneurysm, dissection, or arteriovenous malformation is shown. IMPRESSION: 1. No acute intracranial hemorrhage, evidence of acute territorial infarction, or other acute intracranial disease process. 2. No occlusion, hemodynamically significant stenosis, or dissection in the major cervical arteries. 3. No occlusion, hemodynamically significant stenosis, aneurysm, dissection, or arteriovenous malformation in the major intracranial arteries. Assessment of stenosis of the internal carotid arteries is based on NASCET criteria. ACT 112: Negative or not required by law. Electronically signed by: David Whiting M.D. 08/21/2022 9:43 AM Supervising Physician Co-Signing Physician Notes I have seen and examined the patient and have discussed the case with the provider above. I agree with the assessment and plan as stated with the following exceptions. ATTENDING ADDENDUM: 57-year-old man presented for evaluation of lightheadedness and an acute left- sided headache. The patient reports an onset of his "typical" dizziness which is described as feeling as if he work in a pass out. This has been ongoing for a long time and has not been worked up in the past per his report. Although he did not lose consciousness he was unable to function at work. His headache is described as an ice pick behind his left eye and is associated with blurry vision that is worse on the left. The pain doesn't radiate. The headache is also present in the left posterior region. He wears glasses at baseline and his vision appears to be at baseline in the right. He has numbness in his lateral 3 fingers on the right arm and generalized numbness will/decree sensation in the upper right arm. There were no sensation issues in his face. He has no swallowing issues. He reports that his mother had glaucoma. He has Orthostatics were checked and were positive with patient becoming symptomatic with position change. He is a long smoker who quit in May with Chantix. He exhibited a period of less than 5 seconds of myoclonic jerking of the left leg during the examination. He never lost consciousness or became unresponsive. This myoclonic jerking is "typical" for him and has been ongoing for years. He reports waking up in the morning and having headaches almost every day and not feeling rested. He denies ever having a sleep study in the past. He reports taking a Goody powder for headaches 2-3 times weekly. It is noted in the chart that he has an NSAID allergy with throat swelling as a side effect. LYIN/99 P59 SITTIN/102 P 55 STANDIN/90 68 +orthostatic symptoms Physical exam: VS as above, oxygenating well on RA, afebrile Generally in the dark, holding his head on the left over his eye. +photophobic, WNWD Eyes: normal conjunctivae, left funduscopic exam was unable to be performed 2/2 photophobia and patient unable to cooperate with exam 2/2 pain from the light. right funduscopic exam was performed and normal. PERRL. EOMI with no pain with eye movements. IOP 22 in left, 14 in right. HEENT: NC/AT, OP normal with mucous membranes moist NECK: no tracheal deviation CV: reg rate and rhythm, S1.2 heard, no murmurs, no peripheral edema LUNGS: clear to auscultation throughout, normal respiratory effort. ABD: soft NTND NEURO: sensation different in the RUE and RLE compared with the left side. MSK: 5/5 strength throughout, however, I am able to appreciate a slight weakness in right naphthalene still operator strength, RUQ flex/ext and RLE flex/ext on exam. Ambulatory Chest x-ray reveals no acute process, head CT along with angiogram of head and neck revealed no acute intracranial hemorrhage, no evidence of acute territorial infarction or other intracranial disease process. There is no occlusion hemodynamically significant stenosis or dissection in the major cervical arteries or the major intracranial arteries. CBC, PT/INR, chemistry is within normal limits. Liver panel is within normal limits. Urinalysis reveals no evidence of infection or proteinuria. COVID screening is negative. A/P: Lightheadedness with new onset right sided weakness and right hand numbness and left eye pain/LYONS. Differential includes but not limited to stroke, TIA, acute glaucoma, complicated migraine, acute glaucoma, optic neuritis, MS, acute CRAO/CRVO, orthostatic hypotension. -agree with brain MRI, ophtho and neurology appt -Low risk TIA symptoms present-will hold off on loading with Plavix, but given his ASA allergy will give Plavix 75mg once now and daily and Lipitor 80mg now -Lipid panel and A1C in am -NSS 1L bolus now and repeat orthostatics qshift. -monitor on telemetry Loretta Mack DO [facility] Hospitalist ADDENDUM: Ophthalmology saw patient (Dr. Vila) and found no evidence of acute glaucoma. He dilated his eyes and examined him with a slit lamp with normal optic nerves. He noted IOP of 12 in the right and 15 in the left. He does have anatomic narrow angles bilaterally and he should followup as outpaitent to discuss prophylactic peripheral iridotomies. I discussed these recommendations with the patient who verbalized understanding with intent to comply. Additionally nayan MRI was normal. He was seen by neurology (Dr. [facility] [place] who felt that his symptoms are most consistent with ulnar neuropathy and stroke/TIA was ruled out. No additional medications were recommended including no statin or antiplatelet agents. The recommendation includes an outpatient follow-up with normal neurology to address his neuropathy and presumed migraine headaches. There was concern regarding his orthostatic hypotension, report of slowed movements on the left and tremor in the left hand that he may have early parkinsonism. The recommendation was this be reevaluated as an outpatient by neurology. He also does have myoclonus that is intermittent and unexplained. Prior to leaving the hospital the patient rounded the ER a few times with the primary RN monitoring him and was felt he was ambulating at his baseline. Per the patient his headache had resolved to a 1 out of 10. He was offered Fioricet but reports he would rather continue his Goody powders for headaches which he offers are similar to the headache he had today although less severe. He notes that he takes Goody powders 2-3 times weekly. He was advised on rebound headaches and understands the risks of this. He was discharged in stable condition with close primary care follow-up recommended. sms
[2022-08-21] MEDS ORDERED: SODIUM CHLORIDE 0.9% 1000ML 1,000 ML IV STA (11:21)
--- NOTE | 2022-08-21 11:23 | Electrocardiogram Report ---
Test Reason : Blood Pressure : / mmHG Vent. Rate : 066 BPM Atrial Rate : 066 BPM P-R Int : 188 ms QRS Dur : 090 ms QT Int : 408 ms P-R-T Axes : 039 -11 024 degrees QTc Int : 427 ms Normal sinus rhythm Normal ECG When compared with ECG of 03-NOV-2018 12:11, No significant change was found Confirmed by Dario Carr ([id number]) on 08/21/2022 11:23:04 AM Referred By: REFERRED SELF Confirmed By:Dario Carr
[2022-08-21] MEDS ORDERED: PROPARACAINE 0.5% 225 DROPS/15 ML BTL ONE (12:13)
--- NOTE | 2022-08-21 12:34 | Magnetic Resonance Report ---
MRI OF THE BRAIN WITHOUT CONTRAST CLINICAL HISTORY: Dizzy. Headache. Left eye pain. Evaluate for stroke. COMPARISON STUDY: Head CT and CTA of the head performed earlier today. TECHNIQUE: Utilizing a 1.5 Amber magnet and dedicated coil, multiplanar, multiecho imaging of the bra in was performed without IV contrast. FINDINGS: There are no foci of restricted diffusion to suggest acute infarct. No acute intracranial h emorrhage, midline shift or mass effect is present. Ventricular system is stable since CT of October 24, 2010. Basal cisterns are patent. There are no extra-axial collections. Flow-voids for the major intr acranial vessels are present. No intracranial masses are identified on this unenhanced exam. Minimal white matter T2 hyperintense foci suggest minimal small vessel disease. Mucous retention cyst within the left maxillary sinus is incidentally noted. IMPRESSION: No acute intracranial findings. ACT 112: Negative or not required by law. Electronically signed by: Daniel Ortiz M.D. 08/21/2022 12:32 PM
[2022-08-21] MEDS ORDERED: CLOPIDOGREL BISULFATE 75 MG TAB PO ONE (12:59)
[2022-08-21] MEDS ORDERED: ATORVASTATIN 40 MG TAB PO ONE (13:00)
[2022-08-21] MEDS ORDERED: PHARMACIST DISCHARGE MED REC CONSULT PRN (13:41)
[2022-08-21] MEDS ORDERED: ACETAMINOPHEN 325 MG TAB PO PRN (13:41)
--- NOTE | 2022-08-21 15:09 | Neurology Consultation ---
Date of Consultation August 21, 2022 Assessment & Plan (1) Ulnar neuropathy: With the negative MRI and symptoms more consistent with an ulnar neuropathy this is not consistent with stroke or TIA. I do not recommend any new medication including statin/antiplatelet agents. Recommend outpatient follow-up with neurop athy to address his neuropathy and presumed migraine headaches. Though no further signs today, I am overall concerned regarding his orthostatic hypotension, report of slowed movements on the left and tremor in the left hand that he may have very early parkinsonism. Recommend this be re-evaluated as an outpatient by neurology. Telehealth Consultation Telehealth Information Telehealth Information: I performed this visit using a real-time telehealth connection between my location and the patients location ([facility]). After connecting through interactive tele-video, patient was identified by name and date of and/or wristband check.Patient (or authorized healthcare r epresentative) was informed that this was a telemedicine visit and it was being conducted confidentially over secure lines. My office door was closed and no one else was present in the room with me.Patient (or authorized healthcare client representative) provided consent to proceed with the visit, expressed an understanding of privacy and security of the telemedicine visit, and gave permission to have a hospital client representative in the room in order to assist with the visit and to conduct portions of the visit, as needed. I informed the patient (or authorized healthcare client representative) that I reviewed their record and presented the opportunity for them to ask any questions regarding the visit today. The patient agreed to participate. History of Present Illness Reason for Consultation: Numbness and headache Requesting Physician: Dr. Mack Attending Physician: Loretta Mack, DO History of Present Illness Zackary Zhou is a 57 yo M presenting with eye pain and left arm numbness. The patient reports he often (every few months) gets headaches upon standing because his BP is low at baseline and seems to drop lower when he stands. He reports this as an ongoing problem that has worsened with age. Regarding the numbness it appears to affect the 3rd-5th digits in the hand. Overall currently he feels better than when he arrived and his headache is nearly gone. Allergies Allergy/AdvReac Type Severity Reaction Status Date / Time indomethacin Allergy Severe INDOCIN Verified 11/20/16 09:14 THROAT SWELLING SEVERE REACTION prednisone Allergy Mild "CORTICOSTEROID Unverified 11/20/16 09:14 PSYCHOSIS" warfarin AdvReac Unknown DIFFICULTY Verified 11/20/16 09:14 REGULATING LEVELS Home Medications Medication Instructions Recorded Confirmed Type allopurinol 300 mg tablet 300 mg PO DAILY 08/21/22 08/21/22 History colchicine 0.6 mg tablet 0.6 mg PO BID PRN gout flare 08/21/22 08/21/22 History fluticasone propionate 50 2 spray intranasal DAILY 08/21/22 08/21/22 History mcg/actuation nasal spray,suspension pantoprazole 40 mg tablet,delayed 40 mg PO DAILY 08/21/22 08/21/22 History release Patient History Medical History BPH (benign prostatic hyperplasia) Chronic rhinitis Esophageal dysphagia Gout History of Clostridioides difficile infection HSV-2 infection Schatzki's ring Surgical History H/O nasal septoplasty H/O umbilical hernia repair History of bilateral knee arthroplasty History of elbow surgery History of shoulder surgery S/P left knee arthroscopy Family History Mother Cancer Social History Smoking Status: Former smoker Hx Alcohol Use: No Preferred Language: Polish Feels Safe at Home: Yes Review of Systems +headache Physical Exam Neurological Examination: Mental Status: Awake and alert. Oriented to person, place, and time. Fluent. Comprehension intact. Affect appropriate. Cranial Nerves: VII: Facial expression symmetric Motor: Strength was symmetric and antigravity throughout. Pronator drift was absent. There were no abnormal movements. Sensory: Sensation to light touch was diminished in the L hand 3rd-5th digits Coordination: Finger to nose was intact Reflexes: Unable to assess over telemedicine Results & Data Vital Signs (Past 12 Hours) Vital Signs Temp Pulse Pulse Resp BP BP Pulse Ox 08/21/22 13:34 59 L 20 116/80 98 08/21/22 12:41 60 08/21/22 11:05 61 20 128/90 98 08/21/22 09:21 65 18 136/88 98 08/21/22 08:35 69 08/21/22 07:52 71 14 124/94 92 08/21/22 07:29 36.6 C 70 18 123/79 96 O2 Del Method 08/21/22 13:34 Room Air 08/21/22 12:41 08/21/22 11:05 Room Air 08/21/22 09:21 Room Air 08/21/22 08:35 08/21/22 07:52 Room Air 08/21/22 07:29 Laboratory Results Abnormal lab results 08/21/22 08/21/22 08/21/22 Range/Units 07:42 07:42 07:42 [place] # (Auto) 0.68 H (0.11-0.59) K/uL Glucose 147 H (70-99(Fasting)) mg/dl ALT 53 H (7-52) U/L Ur Specific [place] 1.045 H (1.000-1.030) Diagnostic Findings MRI - unremarkable CTA - unremarkable
[2022-08-21] MEDS ORDERED: STROKE PATIENT DISCHARGE STA (16:24)
--- NOTE | 2022-08-21 16:34 | Discharge Summary ---
Discharge Summary Date of Service August 21, 2022 Notes For Next Care Provider Followup with [facility] neurology regarding tremors, ulnar neuropathy, left leg myoclonus that is chronic and unexplained, recurring migraine headaches. Follow-up [facility] regarding narrowed angles for monitoring and consideration for prophylactic treatment. Medication Changes From Visit No changes Admission HPI Per Admitting Provider 57-year-old male with PMH gout, GERD, Schatzki's ring s/p dilation, BPH, and other problems listed below who presents to the ED for evaluation of lightheadedness, dizziness, left eye pain. History obtained from the patient and review of outpatient PCP records. Patient reports he was at work this morning when he had onset of lightheadedness and dizziness. Patient states this is not uncommon for him when he stands too quickly. Patient states that he usually will sit down and symptoms all resolved. Patient reports the lightheadedness and dizziness was much worse today and he also had associated left eye pain and generalized weakness. Patient then came to the ED for further evaluation. Patient reports he initially had blurry vision which has since resolved. Reports he otherwise has been feeling well recently. No other recent illnesses, fevers, chills. Denies abdominal pain, nausea, vomiting, diarrhea. No chest pain or shortness of breath. Denies urinary symptoms. In the ED, patient is hemodynamically stable, labs are unremarkable. Head CT, head and neck CTAs unremarkable as well. Patient was given IVF and IV Tylenol. Principal Dx & Hospital Course #1 = Principal Diagnosis (1) Ulnar neuropathy: (2) Headache: (3) Left eye pain: (4) Orthostasis: Plan 57-year-old man presented for evaluation of lightheadedness and an acute left- sided headache. The patient reports an onset of his "typical" dizziness which is described as feeling as if he work in a pass out. This has been ongoing for a long time and has not been worked up in the past per his report. Although he did not lose consciousness he was unable to function at work. His headache is described as an ice pick behind his left eye and is associated with blurry vision that is worse on the left. The pain doesn't radiate. The headache is also present in the left posterior region. He wears glasses at baseline and his vision appears to be at baseline in the right. He has numbness in his lateral 3 fingers on the right arm and generalized numbness will/decree sensation in the upper right arm. There were no sensation issues in his face. He has no swallowing issues. He reports that his mother had glaucoma. He has Orthos tatics were checked and were positive with patient becoming symptomatic with position change. He is a long smoker who quit in May with Chantix. He exhibited a period of less than 5 seconds of myoclonic jerking of the left leg during the examination. He never lost consciousness or became unresponsive. This myoclonic jerking is "typical" for him and has been ongoing for years. He reports waking up in the morning and having headaches almost every day and not feeling rested. He denies ever having a sleep study in the past. He reports taking a Goody powder for headaches 2-3 times weekly. It is noted in the chart that he has an NSAID allergy with throat swelling as a side effect. LYIN/99 P59 SITTIN/102 P 55 STANDIN/90 68 +orthostatic symptoms Physical exam: VS as above, oxygenating well on RA, afebrile Generally in the dark, holding his head on the left over his eye. +photophobic, WNWD Eyes: normal conjunctivae, left funduscopic exam was unable to be performed 2/2 photophobia and patient unable to cooperate with exam 2/2 pain from the light. right funduscopic exam was performed and normal. PERRL. EOMI with no pain with eye movements. IOP 22 in left, 14 in right. HEENT: NC/AT, OP normal with mucous membranes moist NECK: no tracheal deviation CV: reg rate and rhythm, S1.2 heard, no murmurs, no peripheral edema LUNGS: clear to auscultation throughout, normal respiratory effort. ABD: soft NTND NEURO: sensation different in the RUE and RLE compared with the left side. MSK: 5/5 strength throughout, however, I am able to appreciate a slight weaknes s in right manager corporate responsibility strength, RUQ flex/ext and RLE flex/ext on exam. Ambulatory Chest x-ray reveals no acute process, head CT along with angiogram of head and neck revealed no acute intracranial hemorrhage, no evidence of acute territorial infarction or other intracranial disease process. There is no occlusion hemodynamically significant stenosis or dissection in the major cervical arteries or the major intracranial arteries. CBC, PT/INR, chemistry is within normal limits. Liver panel is within normal limits. Urinalysis reveals no evidence of infection or proteinuria. COVID screening is negative. A/P: Lightheadedness with new onset right sided weakness and right hand numbness and left eye pain/LYONS. Differential includes but not limited to stroke, TIA, acute glaucoma, complicated migraine, acute glaucoma, optic neuritis, MS, acute CRAO/CRVO, orthostatic hypotension. -agree with brain MRI, ophtho and neurology appt -Low risk TIA symptoms present-will hold off on loading with Plavix, but given his ASA allergy will give Plavix 75mg once now and daily and Lipitor 80mg now -Lipid panel and A1C in am -NSS 1L bolus now and repeat orthostatics qshift. -monitor on telemetry ADDENDUM: Ophthalmology saw patient (Dr. Vila) and found no evidence of acute glaucoma. He dilated his eyes and examined him with a slit lamp with normal optic nerves. He noted IOP of 12 in the right and 15 in the left. He does have anatomic narrow angles bilaterally and he should followup as outpaitent to discuss prophylactic peripheral iridotomies. I discussed these recommendations with the patient who verbalized understanding with intent to comply. Additionally nayan MRI was normal. He was [place] [place] who felt that his symptoms are most consistent with ulnar neuropathy and stroke/TIA was ruled out. No additional medications were recommended including no statin or antiplatelet agents. The recommendation includes an outpatient follow-up with normal neurology to address his neuropathy and presumed migraine headaches. There was concern regarding his orthostatic hypotension, report of slowed movements on the left and tremor in the left hand that he may have early parkinsonism. The recommendation was this be reevaluated as an outpatient by neurology. He also does have myoclonus that is intermittent and unexplained. Prior to leaving the hospital the patient rounded the ER a few times with the primary RN monitoring him and was felt he was ambulating at his baseline. Per the patient his headache had resolved to a 1 out of 10. He was offered Fioricet but reports he would rather continue his Goody powders for headaches which he offers are similar to the headache he had today although less severe. He notes that he takes Goody powders 2-3 times weekly. He was advised on rebound headaches and understands the risks of this. He was discharged in stable condition with close primary care follow-up recommended. Updated Medication List Medication Instructions Recorded Confirmed Type allopurinol 300 mg tablet 300 mg PO DAILY 08/21/22 08/21/22 History colchicine 0.6 mg tablet 0.6 mg PO BID PRN gout flare 08/21/22 08/21/22 History fluticasone propionate 50 2 spray intranasal DAILY 08/21/22 08/21/22 History mcg/actuation nasal spray,suspension pantoprazole 40 mg tablet,delayed 40 mg PO DAILY 08/21/22 08/21/22 History release Hospital Stay Data Consultations 08/21/22 10:02 ED Decision to Admit Stat 08/21/22 13:19 Consult Ophthalmology Routine 08/21/22 13:41 Consult Neurology Routine Diagnostic Imagining Performed 08/21/22 07:51 CT head/brain wo con Stat CTA head w con [CT angio head w con] Stat CTA neck with con [CT angio neck with con] Stat 08/21/22 11:12 MR brain wo con Urgent Pending Results Patient Have Any Pending Studies at Discharge: No Discharge Instructions Given to Patient (Per Discharging Provider) Mr. Zhou, Kenn were evaluated for stroke and were found to have no evidence of this. Your brain MRI was normal. You were evaluated by a neurologist from [facility], Dr. Keith, who recommends outpatient followup to discuss your decreased sensation in your right hand. This may represent something called ulnar neuropathy. You were also evaluated by Dr. Vila from [facility] who would like to see you in the clinic in for followup. This would be important to further assess your narrowed angles as an outpatient. Today there is no evidence of acute glaucoma. It is recommended that you follow-up with your primary care physician within one week to discuss these frequent headaches and any other symptoms if they return. Please stay hydrated and eat a balanced diet. Don't push yourself. Someone will contact you tomorrow regarding setting up a time/date that works for you to see Dr. Raymond. Congratulations on staying quit from smoking! It was a pleasure taking care of you! Please call if you have any questions or problems. You can reach a [facility] hospitalist on duty at [facility] 24 hours a day by calling [phone]. Take care of yourself. DO Tamica Patino Hospitalist Total Time Total Time Spent Total Time Spent (In Minutes): 60
--- NOTE | 2022-08-22 03:08 | Consultation Report ---
OPHTHALMOLOGY CONSULTATION NOTE DATE OF CONSULT: 08/21/2022 CONSULTATION REQUESTED BY: Loretta Mack DO CHIEF COMPLAINT/HISTORY OF PRESENT ILLNESS: This is a 57-year-old male with a medical history of gout, GERD, BPH, who presented to the [facility] Emergency Department for evaluation of lightheadedness and dizziness along with left eye pain. His lightheadedness started this morning first and then he began to develop strong pain behind his left eye. He denied any loss of vision or redness of the eye, but says that his left eye felt a little bit sensitive to light. He denied flashes or floaters. He has no history of eye disease. He wears glasses but he has not seen an eye doctor in a few years. He reports that his left eye was feeling better since receiving pain medication while in the Emergency Department. PAST MEDICAL HISTORY: Benign prostatic hypertrophy, gastroesophageal reflux disease, gout. PAST SURGICAL HISTORY: Septoplasty, herniorrhaphy, elbow surgery, shoulder surgery, and bilateral knee arthroscopy. FAMILY HISTORY: Remarkable for mother with glaucoma. MEDICATIONS: Include allopurinol, colchicine, fluticasone, pantoprazole. ALLERGIES: INCLUDE INDOMETHACIN, PREDNISONE AND WARFARIN. SOCIAL HISTORY: He recently quit smoking. PHYSICAL EXAMINATION: His visual acuity with correction is 20/30 in the right eye and 20/25 in the left eye. His intraocular pressures by Marvin-Pen were 12 in the right eye and 15 in the left eye. His pupils are both 4 mm and reacted equally down to 3 mm with no afferent pupillary defect. His extraocular movements were full in both eyes. His confrontational visual velázquez are full in both eyes. His slit lamp exam for the right eye showed lids, lashes, and lacrimal glands within normal limits. The conjunctivae and sclerae were white and quiet. The cornea appeared clear. The anterior chamber was narrow and quiet. The iris was normal and the lens showed 1+ nuclear sclerosis. The slit lamp exam of the left eye showed lids, lashes, and lacrimal glands within normal limits. Conjunctivae and sclerae were white and quiet. Cornea showed trace to 1+ SPK. The anterior chamber was narrow and quiet. The iris was normal and the lens showed 1+ nuclear sclerosis. The dilated exam showed a cup-to-disc ratio of 0.4 in the right eye and 0.35 in the left eye. The macula, vessels, and peripheral retina were within normal limits in both eyes. IMAGING: The Radiology imaging was reviewed including a CT angiogram of the head and neck, which showed no acute process. There is no occlusion, aneurysm, dissection or arteriovenous malformation of either the cervical or intracranial arteries. ASSESSMENT AND PLAN: 1. Left eye pain. There is no current ocular or acute findings to suggest pain. He has normal intraocular pressure. No anterior chamber inflammation. He does have anatomic narrow angles bilaterally, but he is not in acute angle closure crisis. It appears that the medical team was considering complex migraine on the differential diagnosis and I explained to him that certainly that can cause pain behind the eye. I recommend that he continue the workup per his primary team. 2. Anatomic narrow angles bilaterally. There is no acute crisis. I do recommend that he have gonioscopy done as an outpatient to further assess the angles in both eyes to see if prophylactic peripheral iridotomies are indicated. 3. Nuclear cataracts bilaterally. These do not seem visually significant. He should make an appointment upon discharge with our office to have a complete exam and be checked for any updates to his glasses prescription. Thank you for this consult. Job ID: [id number] [facility] HOSPITALJustin
[2022-08-22] MEDS ORDERED: allopurinoL 300 MG TAB PO SCH (09:00)
[2022-08-22] MEDS ORDERED: PANTOprazole 40 MG TAB PO SCH (09:00)
== END 2022-08-21 16:35 | disposition home or self-care (01) ==
LOC: EDINP 07:26 → ED 07:26 → EDINP 13:41

== ENCOUNTER 2024-07-04 09:55 | Inpatient (IN) ==
--- OUTSIDE RECORDS SUMMARY | 2024-07-04 10:00 | External Medical Summary | Summary of Care ---
Author Name Unknown Organization [facility] Address [address] [place] [address] Phone [phone] Care Team Providers Care Commercial Real Estate Associate Name Role Phone Desean Raymond MD Primary Care Provider [phone] Reason for Visit * Reason Comments Outpatient Testing Encounter Details Date Type Department Care Team (Late st Contact Info) Description 05/27/2024 9:50 AM EST Laboratory Laboratory, [place] [facility] [address] [facility] [place] [address] [facility] [address] [facility] [place] [address] Idiopathic chronic 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; Screening for condition Allergies Active Allergy Reactions Criticality Noted Date Comments Corticosteroids Psych complications 12/18/2004 Injections are ok, unable to tolerate oral Indomethacin 06/12/2000 Can tolerate Ibuprofen OK. Warfarin Sodium 12/08/2010 Shakes, dizziness documented as of this encounter (statuses as of 05/27/2024) Medications Allopurinol 300 MG Oral Tablet (Zyloprim) Take 1 Tablet by mouth in the morning. Active Colchicine 0.6 MG Oral Capsule Take by mouth. Active Fluticasone Propionate 50 MCG/ACT Nasal Suspension (Flonase) Administer 1 [place] into nostril in the morning. Active Pantoprazole Sodium 40 MG Oral Tablet Delayed Release (Protonix) Take 1 Tablet by mouth in the morning. Active Azelastine HCl 0.1 % Nasal Solution (Astelin) Administer 1 [place] into nostril in the morning and 1 [place] before bedtime. Active valACYclovir HCl 500 MG Oral Tablet (Valtrex) Take 1 Tablet by mouth 2 times a day as needed. Active Pepto Bismol 262 MG Oral Capsule (Bismuth Subsalicylate) Take by mouth. Active documented as of this encounter (statuses as of 05/27/2024) Active Problems Problem Noted Date Diagnosed Date Idiopathic chronic gout of multiple sites withou t tophus 04/29/2024 Antrochoanal polyp 02/18/2024 Post-concussion headache 02/12/2024 Closed injury of head 02/05/2023 Wrist arthritis 12/27/2020 Flexor tenosynovitis of finger 11/11/2017 Mixed rhinitis 09/16/2017 Schatzki's ring 09/16/2017 Esophageal dysphagia 09/16/2017 Hepatitis A vaccination not up to date 7 Encounter for long-term (current) use of medicat ions 05/14/2016 Overweight (BMI 25.0-29.9) 01/12/2015 Overview (01/12/2015): bmi= 29.29 01/12/15 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 Overweight (BMI 25.0-29.9) 05/27/2013 Overview (05/27/2013): bmi= 29.29 05/27/13 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 Tobacco use disorder 11/13/2011 Hemangioma of skin 11/13/2011 Vitamin D deficiency 09/16/2011 Gastroesophageal reflux 05/13/2011 Chronic rhinitis 04/12/2011 DJD, BILATERAL KNEES, S/P TKA 10/09/10 DR DUPONT 0 11/01/2010 Intestinal infection due to Clostridium difficil e 11/01/2010 OVERWEIGHT, BMI= 27.42 09/12/10 09/12/2010 documented as of this encounter (statuses as of 05/27/2024) Resolved Problems Problem Noted Date Diagnosed Date Resolved Date Acute idiopathic gout of right hand 08/24/2015 04/29/2024 Acute gout of right hand 07/14/2015 Exposure to genital herpes 11/01/2013 1 Abdominal pain, generalized 05/27/2013 01/12/2015 Pain in joint involving lower leg 09/10/2012 01/12/2015 Stye 07/08/2012 01/12/2015 Cellulitis of leg 07/06/2012 01/12/2015 Gout 07/06/2012 11/23/2012 Obesity, Class I, BMI 30.0-3 4.9 (see actual BMI) 05/18/2012 01/02/2017 Overview (05/18/2012): bmi= 30.38 05/18/12 Cellulitis of groin, right 09/12/2011 1 Malaise and fatigue 09/12/2011 11/24/19 13 Weight gain 09/12/2011 01/12/2015 Polyuria 09/12/2011 01/12/2015 Myalgia and myositis 09/12/2011 015 Gouty arthropathy 05/13/2011 04/29/2024 Overweight (BMI 25.0-29.9) 04/12/2011 1 05/26/2018 Overview (04/12/2011): BMI= 27.36 04/12/11 Hypotension 04/12/2011 01/12/2015 Chronic sinusitis 04/12/2011 01/12/2015 Tobacco use disorder 04/12/2011 015 DIZZINESS 11/01/2010 01/12/2015 Abnormal coagulation profile 11/01/2010 01/12/2015 Polyneuropathy in other dise ases classified elsewhere 11/01/2010 05/27/2013 Spasm of muscle 11/01/2010 01/12/2015 DJD, BILATERAL KNEES 09/12/2010 013 PARONYCHIA FINGER, RIGHT MIDDLE 09/12/2010 05/27/2013 Septicemia 09/12/2010 05/27/2013 Other allergic rhinitis 12/22/200910/30 Overview (01/21/2017): ICD-10 update of inactive term Gouty arthropathy 01/12/2009 05/13/2011 Overview (12/31/2021): ICD-9 Code Update ICD-10 update of inactive term Closed fracture of one or mo re phalanges of foot 04/07/2008 05/27/2013 PAIN IN LIMB, RIGHT KNEE 04/07/2008 Olecranon bursitis 12/16/2005 3 ADVANCE DIRECTIVE INFORMATION 12/13/2005 01/12/2015 Overview (12/13/2005): No, Advance Directive brochure offered , patient declined. Allergic rhinitis 11/30/2005 01/12/2015 Chest pain 11/30/2005 11/23/2012 Esophageal reflux 11/30/2005 11/23/2012 PAIN IN LIMB, LEFT ELBOW 12/18/2004 ADV EFF MED-BIOL SUB NOS 12/18/2004 BIPOLAR AFFEC, MANIC-MOD 10/13/2003 Tobacco use disorder 08/28/2000 012 Gouty arthropathy 01/12/2009 Overview (07/04/2015): ICD-9 Code Update ICD-10 update of inactive term documented as of this encounter (statuses as of 05/27/2024) Immunizations Name Administration Dates Next Due COVID-19 mRNA, LNP-s, No Pre serve, 2-Dose Series ([employer]) 07/04/2020,06/13/2020 HEP A - Hepatitis A (Adult > 18 yrs) 05/18/2014 11/15/2014 Pneumococcal Conjugate Vacci ne, 20-valent ([id number]) 01/22/2024 Pneumococcal Polysaccharide PPV23 (Pneumovax) 04/29/2007 Seasonal Influenza Vac., MDV , IM, 0.5 mL (Fluzone) 01/02/2010,04/29/2007 Seasonal Influenza, PF, 6 M & above, IM , (FluLaval or Fluzone) 01/16/2023,12/19/2021,01/10/2020,02/28,03/20/2017 Seasonal Influenza, Quadriva lent, No Preserve, IM 03/19/2016,01/12/2015 Seasonal Influenza, Trivalen t, (IIV3), PF, (Fluzone) 01/08/2024 TD - Tetanus/Diptheria (ADULT) 09/27/2008 TDAP (age 10 and older)(Boostrix) 03/19/2016 Zoster Vaccine Recombinant (Shingrix) 07/07/2019 ,01/08/2019 documented as of this encounter Social History Tobacco Use Types Packs/Day Years Used Date Smoking Tobacco: Every Day Cigarettes 1 30 Started: 01/13/1992; Last attempted to quit: 01/12/2022 Smokeless Tobacco: Former Chew Quit: 04/07/2007 Comments:started back up may Alcohol Use Standard Drinks/Week Comments No 0 (1 standard drink = 0.6 oz pur e alcohol) rarely PHQ-2 Answer Date Recorded PHQ Adult Total Score 0 01/08/2024 Hunger Vital Sign Answer Date Recorded Within the past 12 months, y ou worried that your food would run out before you got the money to buy more. Never true 01/22/20 Within the past 12 months, t he food you bought just didn't last and you didn't have money to get more. Never true 01/22/2024 Childcare Answer Date Recorded Do you feel overwhelmed with taking care of a child, family member or friend? No 01/22/2024 Does your family need help f inding childcare? (Household - for ages 0-17 years) Not on file 01/22/2024 Clothing Answer Date Recorded Have you been unable to get clothing when it was really needed? No 01/22/2024 Is your family able to get c lothes or diapers when needed? (Household - for ages 0-17 years) Not on file 01/22/2024 Personal Safety Answer Date Recorded Do you feel unsafe or have concerns for your saf ety? No 01/22/2024 Do you have concerns for you r family's safety? (Household - for ages 0-17 years) Not on file 01/22/2024 Utilities Answer Date Recorded Do you have trouble paying y our heating, water, or electric bill? No 01/22/2024 Is your family able to pay t he heat, water, or electric bill? (Household - for ages 0-17 years) Not on file 01/22/2024 Does your family have access to good internet? (Household - for ages 0-17 years) Not on file 01/22/2024 Employment Status Answer Date Recorded Are you unemployed or without regular income? No 01/22/2024 Does the household have a re gular source of income? (Household - for ages 0-17 years) Not on file 01/22/2024 Social Connections Answer Date Recorded How often do you feel lonely or isolated from th ose around you? Never 01/22/2024 Financial Resource Strain Answer Date R ecorded Do you have any trouble payi ng for your medications, or do you think you might in the future? No 01/22/2024 Does your family have troubl e paying for medicine? (Household - for ages 0-17 years) Not on file 01/22/2024 Transportation Needs Answer Date Record ed Do you have trouble getting a ride to medical visits or work? (Adult - for ages 18 years and over) Not on file 01/22/2024 Does your family have a hard time getting a ride to doctors visits? (Household - for ages 0-17 years) Not on file 01/22/2024 Has lack of transportation k ept you from medical appointments, meetings, work, or from getting things needed for daily living? Check all that apply. No 01/22/2024 Do you (or your family) have trouble finding or paying for a ride (transportation)? (Household - for ages 0-17 years) Not on file 01/22/2024 Housing Stability Answer Date Recorded Do you currently live in a s helter or have no steady place to sleep at night? No 01/22/2024 Do you think you are at risk of becoming homeless? (Adult - for ages 18 years and over) Not on file 01/22/2024 Does your family worry about paying for your home or becoming homeless? (Household - for ages 0-17 years) Not on file 1 Are you homeless or worried that you might be in the future? No 01/22/2024 Are you (or your family) kayla eless or worried that you might be in the future? (Household - for ages 0-17 years) Not on file Food Insecurity Answer Date Recorded Do you need food for this week? No 01/22/2024 Are you able to get enough f ood for your family? (Household - for ages 0-17 years) Not on file 01/22/2024 Does your family need food t his week? (Household - for ages 0-17 years) Not on file 01/22/2024 Do you always have enough fo od for your family? (Household - for ages 0-17 years) Not on file 01/22/2024 Food Insecurity Answer Date Recorded Within the past 12 months, y ou worried that your food would run out before you got the money to buy more. Never true 01/22/20 24 Within the past 12 months, t he food you bought just didn't last and you didn't have money to get more. Never true 01/22/2024 Do you need food for this week? 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 on file Not on file documented as of this encounter Plan of Treatment Upcoming Encounters Date Type Department Care Team (Late st Contact Info) Description 06/10/2024 7:00 AM EDT Office Visit Neurology [facility] [address] [facility] [place] [address] Krystina Spain PA-C [address] [facility] [address] [place] [address] 07/22/2024 8:00 AM EDT Hospital Encounter ENDO [facility], Endoscopy Room [facility] [address] [facility] [place] [phone] Suni Orourke MD [address] [place] [address] 07/22/2024 8:00 AM EDT - 07/22/2024 8:30 AM EDT Surgery ENDO [facility], Endoscopy Room [facility] [address] [place] [phone] Suni Orourke MD [address] [id number] COLONOSCOPY FLEXIBLE PROXIMAL DIAGNOSTIC 04/29/2025 8:00 AM EST Office Visit Rheumatology [facility] [address] [place] [phone] Jaron Buckner MD [address] [employer] [place], [place] [address] 05/30/2025 9:00 AM EST Office Visit Family [facility] [address] [facility] [place] [address] Desean Raymond MD [address] [facility] [place] [id number] Pending Results Name Type Priority Associated Diagnoses Date /Time COMPREHENSIVE METABOLIC PANEL Lab Routine Idiopathic chronic 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 05/27/2024 9:50 AM EST LIPID PANEL WITH DIRECT LDL IF TG IS HIGH Lab Routine Screening for condition 05/27/2024 9:50 AM EST Scheduled Procedures Name Priority Associated Diagnoses Date/Ti me COLONOSCOPY FLEXIBLE PROXIMAL DIAGNOSTIC Recall Special screening for malignant neoplasms, colon 07/22/2024 8:00 AM EDT Health Maintenance Due Date Last Done Comments Hepatitis B Vaccine (1 of 3 - 19+ 3-dose series) 1985 Cologuard 06/28/2011 Fecal Occult Blood Test 06/28/2011 Sigmoidoscopy 06/28/2011 Colonoscopy 06/17/2023 06/16/2013, 06/16/2013 Colorectal Cancer Screening 06/17/2023 Depression Screening 01/07/2025 01/08/2024, 01/12/2015 (Discussed) HIV Screening 01/07/2025 Postponed from 1981 (Patient Declined After Education) DTap/Tdap Vaccines (2 - Td or Tdap) 03/19/2026 03/19/2016, 09/27/2008 Diabetes Screening 05/05/2026 05/05/2023, 0 08/22/2021, 01/10/2020, Additional history exists Lipid Panel 05/05/2028 05/05/2023, 08/05/2022, 01/10/2020, Additional history exists Hepatitis C Screening Completed 02/19/2019 Zoster Vaccines Completed 07/07/2019, 01/08/2019 COVID-19 Vaccine Discontinued 07/04/2020, 06/13/2020 Lung Cancer Screening Completed 01/09/2023, 022 Influenza Vaccine (FLU shot) Completed 01/08/2024, 01/16/2023, 12/19/2021, Additional history exists Pneumococcal Vaccine: 50+ Years Completed 01/22/2024, 04/29/2007 HPV (Gardasil) Vaccine Aged Out No lo nger eligible based on patient's age to complete this topic MENINGOCOCCAL (MENACTRA/MENVEO) Aged Out No longer eligible based on patient's age to complete this topic Meningitis B Vaccine (Bexsero/Trumemba) Aged Out No longer eligible based on patient's age to complete this topic documented as of this encounter Medical Devices Implanted Type Area Vice President Of Advertising Device Identifier Shelf Expiration Date Model / Serial / Lot Ventralex St Hernia Patch Implanted:Qty: 1 on 10/25/2014 by Desean Hernandez MD at OR [facility] N/A: Abdomen INACTIVE CR [employer] 03/30/2016 [id number] / / [id number] documented as of this encounter Visit Diagnoses Diagnosis Idiopathic chronic 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 Chronic gouty arthropathy without mention of tophus (tophi) Screening for condition Screening for unspecified condition Special screening for malignant neoplasms, colon documented in this encounter Advance Directives * Full Code (Latest Code Status on File) Date Activated Date Inactivated Comments 05/19/2023 10:39 AM 05/19/2023 3:32 PM This order reflects the patients wishes and were consensually agreed upon. Question Answer Comments Discussion of Advance Direct shawna occurred with: Not Discussed due to patient's condition Does the patient have a Living Will? No Does the patient have Health Care Power of Heater Installer? No Care Teams Commercial Real Estate Associate Relationship Specialty Start Date End Date Desean Raymond MD [address] [place] [address] PCP - General Family Medicine 04/13/24 documented as of this encounter
--- OUTSIDE RECORDS SUMMARY | 2024-07-04 10:01 | External Medical Summary | Summary of Care ---
Author Name Unknown Organization [facility] Address [address] [address] Phone [phone] Care Team Providers Care Deoiling Machine Operator Name Role Phone Desean Raymond MD Primary Care Provider [phone] Reason for Visit * Reason Onset Date Comments Test Results 04/30/2024 Encounter Details Date Type Department Care Team (Late st Contact Info) Description 04/30/2024 Telephone Rheumatology [facility] [address] [place] [address] J[facility] Buckner [facility] [address] [facility] [address] Test Results Allergies Active Allergy Reactions Criticality Noted Date Comments Corticosteroids Psych complications 12/18/2004 Injections are ok, unable to tolerate oral Indomethacin 06/12/2000 Can tolerate Ibuprofen OK. Warfarin Sodium 12/08/2010 Shakes, dizziness documented as of this encounter (statuses as of 05/03/2024) Medications oxyCODONE-Acetam inophen 5-325 MG Oral Tablet (Percocet) Take 1 Tablet by mouth every 4 hours as needed for Pain 21 Tablet 04/26/2024 2:18 PM EST 04/26/2024 Active documented as of this encounter (statuses as of 05/03/2024) Active Problems Problem Noted Date Diagnosed Date [...] as of this encounter (statuses as of 05/03/2024) Resolved Problems Problem Noted Date Diagnosed Date [...] as of this encounter (statuses as of 05/03/2024) Immunizations Name Administration Dates Next Due COVID-19 mRNA, LNP-s, No Pre serve, 2-Dose Series ([employer]) 07/04/2020,06/13/2020 HEP A - Hepatitis A (Adult > 18 yrs) 05/18/2014 11/15/2014 Pneumococcal Conjugate Vacci ne, 20-valent ([id number]) 01/22/2024 Pneumococcal Polysaccharide PPV23 (Pneumovax) 04/29/2007 Seasonal [...] ages 0-17 years) Not on file 01/22/2024 Sex and Gender Information Value Date Recorded Sex Assigned at Male 09/25/2018 2:06 PM EDT Legal Sex Male 5:02 AM EST Gender Identity Male 09/25/2018 2:06 PM EDT Sexual Orientation Straight 09/25/2018 2: 06 PM EDT 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 Not on file Not on file documented as of this encounter Miscellaneous Notes * Telephone Encounter - Jaron Buckner MD - 04/30/2024 4:49 PM EST See email documented in this encounter Plan of Treatment Upcoming Encounters Date Type Department Care Team (Late st Contact Info) Description 05/04/2024 8:30 AM EST Office Visit Otolaryngology [facility] [address] [place] [address] Tom Orosco DO [address] [place] [address] 05/27/2024 9:00 AM EST [facility] [address] [facility] [place] [phone] Desean Raymond MD [address] [facility] [place] [place] [address] 06/10/2024 7:00 AM EDT Office Visit Neurology [facility] [address] [facility] [address] Krystina Spain PA-C [address] [facility] [place] [address] 07/22/2024 8:00 AM EDT Hospital Encounter ENDO [facility], Endoscopy Room [facility] [address] [place] [phone] Suni Or[facility]ke MD [address] [facility] [place] [id number] 07/22/2024 8:00 AM EDT - 07/22/2024 8:30 AM EDT Surgery ENDO [facility], Endoscopy Room [facility] [address] [place] [phone] Suni Orourke MD [address] [place] [phone] COLONOSCOPY FLEXIBLE PROXIMAL DIAGNOSTIC 04/29/2025 8:00 AM EST Office Visit Rheumatology [facility] [address] [place] [phone] Jaron Buckner MD [address] [facility] [place] [address] Scheduled Procedures Name Priority Associated Diagnoses Date/Ti [...] Additional history exists Lipid Panel 05/05/2028 05/05/2023, 08/0 05/2022, 01/10/2020, Additional history exists Hepatitis C Screening [...] this encounter Medical Devices Implanted Type Area Health Insurance Assessor Device Identifier Shelf Expiration Date Model / Serial / Lot Ventralex St Hernia Patch Implanted:Qty: 1 on 10/25/2014 by Desean Hernandez MD at OR [facility] N/A: Abdomen INACTIVE CR [employer] 03/30/2016 [id number] / / [id number] documented as of this encounter Advance Directives * Full Code [...] the patient have Health Care Power of Die Keeper? No Care Teams Deoiling Machine Operator Relationship Specialty Start Date End Date Desean Raymond MD [address] [place] [address] PCP - General Family Medicine 04/13/24 documented as of this encounter
--- OUTSIDE RECORDS SUMMARY | 2024-07-04 10:01 | External Medical Summary | Summary of Care ---
Author Name Unknown Organization [facility] Address [address] [facility] [place] [address] Phone [phone] Care Team Providers Care Electronics Technician Apprentice Name Role Phone Desean Raymond MD Primary Care Provider [phone] Encounter Details Date Type Department Care Team (Late st Contact Info) Description 05/14/2024 Telephone Otolaryngology [facility] [address] [place] [address] Tom Orosco DO [address] [place] [address] Allergies Active Allergy Reactions Criticality Noted Date Comments Corticosteroids Psych complications 12/18/2004 Injections are ok, unable to tolerate oral Indomethacin 06/12/2000 Can tolerate Ibuprofen OK. Warfarin Sodium 12/08/2010 Shakes, dizziness documented as of this encounter (statuses as of 05/14/2024) Medications No known medicationsdocumented as of this encounter (statuses as of 05/14/2024) Active Problems Problem Noted Date Diagnosed Date [...] as of this encounter (statuses as of 05/14/2024) Resolved Problems Problem Noted Date Diagnosed Date [...] as of this encounter (statuses as of 05/14/2024) Immunizations Name Administration Dates Next Due COVID-19 mRNA, LNP-s, No Pre serve, 2-Dose Series ([employer]) 07/04/2020,06/13/2020 HEP A - Hepatitis A (Adult > 18 yrs) 05/18/2014 11/15/2014 Pneumococcal Conjugate Vacci ne, 20-valent ([id number]) 01/22/2024 Pneumococcal Polysaccharide PPV23 (Pneumovax) 04/29/2007 Seasonal [...] 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 Forms have been filled out and faxed to number provided on forms documented in this encounter Plan of Treatment Upcoming Encounters Date Type Department Care Team (Late st Contact Info) Description 05/27/2024 9:00 AM EST [facility] [address] [facility] [place] [phone] Desean Raymond MD [address] [place] [address] 06/10/2024 7:00 AM EDT Office Visit Neurology [facility] [address] [facility] [address] Krystina Spain PA-C [address] [facility] [place] [address] 07/22/2024 8:00 AM EDT Hospital Encounter ENDO [facility], [facility] Room [facility] 132 [facility] [place] [phone] Suni Orourke MD [address] [place] [address] 07/22/2024 8:00 AM EDT - 07/22/2024 8:30 AM EDT Surgery [facility] [address] [facility] [place] [phone] Suni Orourke MD [address] [place] [address] COLONOSCOPY FLEXIBLE PROXIMAL DIAGNOSTIC 04/29/2025 8:00 AM EST Office Visit Rheumatology [facility] [address] [place] [address] Jaron Buckner MD [address] [employer] [place] [address] Scheduled Procedures Name Priority Associated Diagnoses Date/Ti [...] this encounter Medical Devices Implanted Type Area Manager Of Photography Device Identifier Shelf Expiration Date Model / Serial / Lot Ventralex St Hernia Patch Implanted:Qty: 1 on 10/25/2014 by Desean Hernandez MD at OR [facility] N/A: Abdomen INACTIVE [employer] 03/30/2016 [id number] / / [id number] documented as of this encounter Advance Directives [...] the patient have Health Care Power of Refrigerator Repair Technician? No Care Teams Electronics Technician Apprentice Relationship Specialty Start Date End Date Desean Raymond MD [address] [facility] [place] [address] PCP - General Family Medicine 04/13/24 documented as of this encounter
--- OUTSIDE RECORDS SUMMARY | 2024-07-04 10:01 | External Medical Summary | Summary of Care ---
Author Name Unknown Organization [facility] Address [address] [facility] [place] [address] Phone [phone] Care Team Providers Care Poultry Packer Name Role Phone Desean Raymond MD Primary Care Provider [phone] Reason for Visit * Reason Comments Post-Op Encounter Details Date Type Department Care Team (Late st Contact Info) Description 05/04/2024 8:30 AM EST Office Visit Otolaryngology [facility] [address] [facility] [place] [address] Tom Orosco, 132 [facility] [place] [address] Antrochoanal polyp* Allergies Active Allergy Reactions Criticality Noted Date Comments Corticosteroids Psych complications 12/18/2004 Injections are ok, unable to tolerate oral Indomethacin 06/12/2000 Can tolerate Ibuprofen OK. 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 04/29/2024 Antrochoanal polyp 02/18/2024 Post-concussion headache 02/12/2024 [...] DJD, BILATERAL KNEES, S/P TKA 10/09/10 DR DPUONT 0 11/01/2010 Intestinal infection due to Clostridium difficil e 11/01/2010 OVERWEIGHT, BMI= 27.42 09/12/10 09/12/2010 documented as of this encounter (statuses as of 05/04/2024) Resolved Problems Problem Noted Date Diagnosed Date [...] as of this encounter (statuses as of 05/04/2024) Immunizations Name Administration Dates Next Due COVID-19 mRNA, LNP-s, No Pre serve, 2-Dose Series ([employer]) 07/04/2020,06/13/2020 HEP A - Hepatitis A (Adult > 18 yrs) 05/18/2014 11/15/2014 Pneumococcal Conjugate Vacci ne, 20-valent ([id number]) 01/22/2024 Pneumococcal Polysaccharide PPV23 (Pneumovax) 04/29/2007 Seasonal [...] 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 He is status post left endoscopic maxillary antrostomywith excision of anterior choanal polyp. Has been doing well without issues. Problem List Patient Active Problem List Diagnosis OVERWEIGHT, BMI= 27.42 09/12/10 DJD, BILATERAL KNEES, S/P TKA 10/09/10 DR DUPONT Intestinal infection due to Clostridium difficile Chronic rhinitis Gastroesophageal reflux Vitamin D deficiency Tobacco use disorder Hemangioma of skin BPH with obstruction/lower urinary tract symptoms Overweight (BMI 25.0-29.9) HSV-2 infection Overweight (BMI 25.0-29.9) Hepatitis A vaccination not up to date Encounter for long-term (current) use of medications Mixed rhinitis Schatzki's ring Esophageal dysphagia Flexor tenosynovitis of finger Wrist arthritis Closed injury of head Post-concussion headache 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 Past Medical History: Diagnosis Date BPH with obstruction/lower urinary tract symptoms 05/18/2012 Chronic rhinitis 04/12/2011 DJD, BILATERAL KNEES, S/P TKA 10/09/10 DR DUPONT 11/01/2010 FX PHALANX, FOOT-CLOSED 04/07/2008 Gastroesophageal reflux 05/13/2011 Gouty arthropathy, unspecified 05/13/2011 Intestinal infection due to Clostridium difficile 11/01/2010 Tobacco use disorder 11/13/2011 Vitamin D deficiency 09/16/2011 Past Surgical History: Procedure Laterality Date ARTHROPLASTY KNEE TOTAL Bilateral 2010 gout induced COLONOSCOPY, DIAGNOSTIC (RECTUM) 06/16/2013 COLONOSCOPY FLEXIBLE PROXIMAL DIAGNOSTIC performed by Dario Seay MD at ENDOSCOPY [facility] EGD, FLEXIBLE, DIAGNOSTIC 01/08/2013 mild inflammation end of esophagus consistant with acid reflux --no evidence of barretts --mild irritation of stomach EGD, FLEXIBLE, DIAGNOSTIC 09/19/2014 Schatzki ring, HH/ESOPHAGOGASTRODUODENOSCOPY (EGD), FLEXIBLE, TRANSORAL, DIAGNOSTIC performed by Dario Seay MD at ENDOSCOPY [facility] EGD, FLEXIBLE, DIAGNOSTIC 11/20/2016 Schatzki ring, sm hiatal hernia, normal bx/[facility] EGD, FLEXIBLE, DIAGNOSTIC 08/12/2018 Schatzki ring, hiatal hernia/ESOPHAGOGASTRODUODENOSCOPY (EGD), FLEXIBLE, TRANSORAL, DIAGNOSTIC performed by Dario Seay MD at ENDOSCOPY [facility] EGD, FLEXIBLE, DIAGNOSTIC 01/01/2022 Schatzki ring, hiatal hernia, normal bx / ESOPHAGOGASTRODUODENOSCOPY (EGD), FLEXIBLE, TRANSORAL, DIAGNOSTIC performed by Duong Jean MD at ENDOSCOPY [facility] EGD, FLEXIBLE, INSERT WIRE, PASS DILATOR 04/23/2010 mild schatzki ring dilated and bx hiatal hernia EGD, FLEXIBLE, W/BIOPSY 04/23/2010 acid reflux EGD, FLEXIBLE, W/BIOPSY 05/24/2011 medium hiatal hernia , dilatation , no barretts changes INCISE FOOT/TOE EXTENSOR TENDON Left 05/19/2023 LEFT TENOTOMY EXTENSOR TOE OR FOOT OPEN performed by Roberto Ramirez DPM at OR [facility] KNEE ARTHROSCOPY, DIAGNOSTIC 01/2000 For gout, Left, multiple MAXIL SINUS ENDOSCOPY W/TISS REMOVE Left 04/26/2024 NASAL SINUS ENDOSCOPY MAXILLA ANTROSTOMY REMOVE TISSUE performed by Tom Orosco DO at OR [facility] MISCELLANEOUS ORDER ([facility] ONLY) Bilateral elbow bursa surgery related to gout REMOVAL OF 5TH METATARSAL HEAD Left 05/19/2023 OSTECTOMY COMPLETE EXCISION 5TH METATARSAL HEAD performed by Roberto Ramirez DPM at OR [facility] REMOVAL OF NOSE POLYP(S), EXTENSIVE Left 04/26/2024 EXCISION NASAL POLYPS EXTENSIVE performed by Tom Orosco DO at OR [facility] REPAIR OF NASAL SEPTUM 2004 Nasal Septum Repair - twenties and 2004 SHOULDER ARTHROSCOPY/DEBRIDEMENT Right 10/2018 DrEllis, trigger finger-ring UMBIL HERNIA REPAIR (REDUCIBLE) AGE 5+YR 10/25/2014 10/25/2014 repair of umbilical hernia - Adama Horner OR - Dr. Desean Hernandez Medications No current outpatient medications on file. No current facility-administered medications for this visit. Allergies Review of patient's allergies indicates: Allergen Reactions Corticosteroids Psych complications Injections are ok, unable to tolerate oral Indomethacin Can tolerate Ibuprofen OK. Warfarin Sodium Shakes, dizziness Family History Family History Problem Relation Name Age of Onset Gastro-intestinal disorder Father dysphagia Cancer Mother uterus (?) Allergies Daughter egg allergy Cancer Father 09/2009 of heart failure Heart Disorder Father 09/2009 Lung Disorder Father 09/2009 COPD, fomer smoker Diabetes Father 09/2009 Cancer Mother pawan dunn cervical Diabetes Mother pawan dunn Cancer Sister vanessa confer skin cancer Allergies Sister vanessa confer allergic rhinitis, cat allergy Social History Social History Tobacco Use Smoking status: Every Day Current packs/day: 0.00 Average packs/day: 1 pack/day for 30.0 years (30.0 ttl pk-yrs) Types: Cigarettes Start date: 01/13/1992 Last attempt to quit: 01/12/2022 Years since quittin.3 Smokeless tobacco: Former Types: Chew Quit date: 04/07/2007 Tobacco comments: started back up june 06 Substance Use Topics Alcohol use: No Comment: rarely Vaping/E-Cigarette Use Vaping/E-Cigarette Use Never User Vaping/E-Cigarette Substances Vaping/E-Cigarette Devices Review of Systems Negative for constitutional, eyes, cardiac, pulmonary, hepatic, renal, digestive, hematologic, epileptic, syncopal, musculo-skeletal, mental health, integumentary, hypertensive, lipid, arthritic, diabetic, thyroid, or neurologic disorders (except as listed in the PMH and Problem List). Physical Examination: Temp 36.6 °C (97.9 °F) (Tympanic) | Ht 1.778 m (5' 10") | BMI 28.84 kg/m² | BSA 2.12 m² PHYSICAL EXAM General: This is a healthy appearing male who appears his stated age. The patient is alert and appropriately verbally conversant without hoarseness. Face: The face was inspected and no cutaneous masses or lesions were visualized. There was no erythema or edema noted. Facial movement was symmetric without weakness. Eyes: Extra-ocular muscle function was intact. No nystagmus was observed. Pupils were equal. Cranial Nerves: Cranial nerves II, III, IV, and were noted to be intact via extra-ocular muscle movement testing. Cranial nerve VII noted to be intact and symmetric by facial movement. Nose: Examination of the nose revealed no masses, polyps, mucopus, or other lesion. The nasal septum was non-obstructing. The turbinates were without abnormality. Procedure: In order to assess the paranasal sinuses, endoscopy of the nose and paranasal sinuses was performed. The nose was decongested with topical oxymetazoline 0.05% spray and then anesthetized with topicalLidocaine 4% spray. Using the 0 degree endoscope for guidance, the left maxillary antrostomy was debrided of old packing and some blood. Antrostomy is widely patent. The nasopharynx was without lesion. The patient tolerated the procedure well. Assessment: 58-year-old male status post left maxillary antrostomy excision of of antral choanal polyp. Plan: Doing well Follow-up p.r.n. Tom Orosco DO, FACS [facility] Game Warden, Department of Otolaryngology-Head and Neck Surgery [facility], [place] 05/04/2024 8:48 AM documented in this encounter Nursing Notes * Starr Gaytan LPN - 05/04/2024 8:21 AM EST Chief Complaint Patient presents with Post-Op Patient her for post op ene pt reports doing well. DATE OF PROCEDURE: 04/26/2024 11:45 AM PRE-OP DIAGNOSIS: Left antrochoanal polyp POST-OP DIAGNOSIS: Same PROCEDURE: LEFT endoscopic maxillary antrostomy, removal of tissue ( antrochoanal polyp) SURGEON: Tom Orosco DO, FACS documented in this encounter Plan of Treatment Upcoming Encounters Date Type Department Care Team (Late st Contact Info) Description 05/27/2024 9:00 AM EST Office [facility] [place] [facility] [phone] Desean Raymond MD [address] [facility] [place] [address] 06/10/2024 7:00 AM EDT Office Visit Neurology [facility] [address] [facility] [place], [place] [address] Krystina pSain PATamie [address] [facility] [place] [address] 07/22/2024 8:00 AM EDT Hospital Encounter ENDO [facility], Endoscopy Room [facility] [address] [place] [phone] Suni Orourke MD [address] [place] [address] 07/22/2024 8:00 AM EDT - 07/22/2024 8:30 AM EDT Surgery ENDO [facility], Endoscopy Room [facility] [address] [place] [phone] Suni Orourke MD [address] [place] [id number] COLONOSCOPY FLEXIBLE PROXIMAL DIAGNOSTIC 04/29/2025 8:00 AM EST Office Visit Rheumatology [facility] [address] [place] [phone] Jaron Buckner MD [address] [employer] [place] [address] Scheduled Procedures Name Priority Associated Diagnoses Date/Ti [...] this encounter Medical Devices Implanted Type Area Carroting Machine Offbearer Device Identifier Shelf Expiration Date Model / Serial / Lot Ventralex St Hernia Patch Implanted:Qty: 1 on 10/25/2014 by Desean Hernandez MD at OR [facility] N/A: Abdomen INACTIVE [employer] 03/30/2016 [id number] / / [id number] documented as of this encounter Visit Diagnoses Diagnosis Antrochoanal polyp- Primary Polyp of nasal cavity Special screening for malignant neoplasms, colon documented [...] the patient have Health Care Power of Antique Repairer? No Care Teams Poultry Packer Relationship Specialty Start Date End Date Desean Raymond MD [address] [place] [address] PCP - General Family Medicine 04/13/24 documented as of this encounter
--- OUTSIDE RECORDS SUMMARY | 2024-07-04 10:01 | External Medical Summary ---
Author Name Unknown Address Unknown Organization [id number]:[facility] [place] [address] [facility] [place] [address] Laboratory Report Ordering Provider Test Date Status ANNETTE BRAUN 05/27/2024 09:50:25 Final Observation Date Value Abnormality Reference (Units ) Status BUN 05/27/2024 09:50:25 13 6-20 (mg/dL) Final Creatinine 05/27/2024 09:50:25 1.0 0.6-1.2 (mg/dL) Final Glomerular filtration rate/1.73 sq M.predicted [Volume Rate/Area] in Serum, Plasma or Blood by Creatinine-based formula (CKD-EPI) 05/27/2024 09:50:25 86 >=60 (mL/min) Final eGFR is calculated based on the CKD-EPI 2020 equation. Sodium 05/27/2024 09:50:25 142 135-146 (m mol/L) Final Potassium 05/27/2024 09:50:25 4.4 3.5-5.1 (m mol/L) Final Cl 05/27/2024 09:50:25 103 98-107 (mm ol/L) Final CO2 05/27/2024 09:50:25 26 22-32 (mmo l/L) Final Anion gap 05/27/2024 09:50:25 13 7-15 (mmol /L) Final Glucose 05/27/2024 09:50:25 100 70-120 (mg /dL) Final Albumin 05/27/2024 09:50:25 4.4 3.8-5.0 (g /dL) Final AST (Aspartate aminotransferase) 05/27/2024 09:50:25 24 10-50 (U/L) Final Alk Phos 05/27/2024 09:50:25 77 35-130 (U/ L) Final Bilirubin, Total 05/27/2024 09:50:25 0.4 <=1 .2 (mg/dL) Final Calcium 05/27/2024 09:50:25 9.3 8.4-10.2 ( mg/dL) Final Protein 05/27/2024 09:50:25 6.9 6.0-8.3 (g /dL) Final ALT (Alanine aminotransferase) 05/27/2024 09:50:25 33 10-50 (U/L) Final Performing Location [facility] [place] [address] [facility] [address]
--- OUTSIDE RECORDS SUMMARY | 2024-07-04 10:01 | External Medical Summary | Summary of Care ---
Author Name Unknown Organization [facility] Address [address] [facility] [address] Phone [phone] Care Team Providers Care Student Records Specialist Name Role Phone Desean Raymond MD Primary Care Provider [phone] Reason for Visit * Reason Onset Date Comments Test Results 04/30/2024 Encounter Details Date Type Department Care Team (Late st Contact Info) Description 04/30/2024 Telephone Rheumatology [facility] [address] [place] [phone] Jaron Buckner MD [address] [facility] [address] Test Results Allergies Active Allergy Reactions Criticality Noted Date Comments Corticosteroids Psych complications 12/18/2004 Injections are ok, unable to tolerate oral Indomethacin 06/12/2000 Can tolerate Ibuprofen OK. Warfarin Sodium 12/08/2010 Shakes, dizziness documented as of this encounter (statuses as of 05/01/2024) Medications oxyCODONE-Acetam inophen 5-325 MG Oral Tablet (Percocet) Take 1 Tablet by mouth every 4 hours as needed for Pain 21 Tablet 04/26/2024 2:18 PM EST 04/26/2024 Active documented as of this encounter (statuses as of 05/01/2024) Active Problems Problem Noted Date Diagnosed Date [...] as of this encounter (statuses as of 05/01/2024) Resolved Problems Problem Noted Date Diagnosed Date [...] as of this encounter (statuses as of 05/01/2024) Immunizations Name Administration Dates Next Due COVID-19 mRNA, LNP-s, No Pre serve, 2-Dose Series ([employer]) 07/04/2020,06/13/2020 HEP A - Hepatitis A (Adult > 18 yrs) 05/18/2014 11/15/2014 Pneumococcal Conjugate Vacci ne, 20-valent ([id number]) 01/22/2024 Pneumococcal Polysaccharide PPV23 (Pneumovax) 04/29/2007 Seasonal [...] 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 Not on file Not on file documented as of this encounter Miscellaneous Notes * Telephone Encounter - Jaron Buckner MD - 04/30/2024 4:49 PM EST See email documented in this encounter Plan of Treatment Upcoming Encounters Date Type Department Care Team (Late st Contact Info) Description 05/04/2024 8:30 AM EST Office Visit Otolaryngology [facility] [address] [place] [address] Tom Orosco DO [address] [place] [address] 05/27/2024 9:00 AM EST [facility] [address] [facility] [place] [phone] Desean Raymond MD [address] [facility] [address] 06/10/2024 7:00 AM EDT Office Visit [facility] [address] [facility] [address] Krystina Spain PA-C [address] [facility] [place] [address] 07/22/2024 8:00 AM EDT Hospital Encounter ENDO [facility], Endoscopy Room O[facility] [address] [place] [phone] Suni Orourke MD [address] [facility] [place] [id number] 07/22/2024 8:00 AM EDT - 07/22/2024 8:30 AM EDT Surgery ENDO [facility], Endoscopy Room [facility] [address] [place] [phone] Suni Orourke MD [address] [place] [phone] COLONOSCOPY FLEXIBLE PROXIMAL DIAGNOSTIC 04/29/2025 8:00 AM EST Office Visit Rheumatology [facility] [address] [place] [phone] Jaron Buckner MD [address] [facility] [place] [address] Scheduled Procedures Name Priority Associated Diagnoses Date/Ti [...] this encounter Medical Devices Implanted Type Area Mortising Machine Operator Device Identifier Shelf Expiration Date Model / Serial / Lot Ventralex St Hernia Patch Implanted:Qty: 1 on 10/25/2014 by Desean Hernandez MD at OR [facility] N/A: Abdomen INACTIVE [employer] 03/30/2016 [id number] / / [id number] documented as of this encounter Advance Directives [...] the patient have Health Care Power of Circulator? No Care Teams Student Records Specialist Relationship Specialty Start Date End Date Desean Raymond MD [address] [place] [address] PCP - General Family Medicine 04/13/24 documented as of this encounter
--- OUTSIDE RECORDS SUMMARY | 2024-07-04 10:01 | External Medical Summary | Summary of Care ---
Author Name Unknown Organization [facility] Address [address] [facility] [address] Phone [phone] Care Team Providers Care Manager Drug Safety Name Role Phone Desean Raymond MD Primary Care Provider [phone] Reason for Visit * Reason Onset Date Comments Test Results 04/30/2024 Encounter Details Date Type Department Care Team (Late st Contact Info) Description 04/30/2024 Telephone Rheumatology [facility] [address] [place] [phone] Jaron Buckner MD [address] [facility] [address] Test Results Allergies Active Allergy [...] mRNA, LNP-s, No Pre serve, 2-Dose Series ([employer]) 07/04/2020,06/13/2020 HEP A - Hepatitis A (Adult > 18 yrs) 05/18/2014 11/15/2014 Pneumococcal Conjugate Vacci ne, 20-valent ([id number]) 01/22/2024 Pneumococcal Polysaccharide PPV23 (Pneumovax) 04/29/2007 Seasonal [...] 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 file Not on file documented as of this encounter Miscellaneous Notes * Telephone Encounter - Jaron Buckner MD - 04/30/2024 4:49 PM EST See email documented in this encounter Plan of Treatment Upcoming Encounters Date Type Department Care Team (Late st Contact Info) Description 05/04/2024 8:30 AM EST Office Visit Otolaryngology [facility] [address] [place] [address] Tom Orosco DO [address] [place] [address] 05/27/2024 9:00 AM EST Office [facility] [address] [facility] [place] [phone] Desean Raymond MD [address] [facility] [place] [address] 06/10/2024 7:00 AM EDT Office Visit [facility] [address] [facility] [address] Krystina Spain PA-C [address] [facility] [place] [address] 07/22/2024 8:00 AM EDT Hospital Encounter ENDO [facility], Endoscopy Room OSS [address] [place] [phone] Suni Orourke MD [address] [facility] [place] [id number] 07/22/2024 8:00 AM EDT - 07/22/2024 8:30 AM EDT Surgery ENDO [facility], Endoscopy Room O[facility] [address] [place] [phone] Suni Orourke MD [address] [place] [phone] COLONOSCOPY FLEXIBLE PROXIMAL DIAGNOSTIC 04/29/2025 8:00 AM EST Office Visit Rheumatology [facility] [address] [place] [phone] Jaron Buckner MD [address] [facility] [place] [address] Scheduled Procedures Name Priority Associated Diagnoses Date/Ti [...] this encounter Medical Devices Implanted Type Area Policy Issue Clerk Device Identifier Shelf Expiration Date Model / Serial / Lot Ventralex St Hernia Patch Implanted:Qty: 1 on 10/25/2014 by Desean Hernandez MD at OR [facility] N/A: Abdomen INACTIVE [employer] 03/30/2016 [id number] / / [id number] documented as of this encounter Advance Directives [...] the patient have Health Care Power of Merchandise Presentation Associate? No Care Teams Manager Drug Safety Relationship Specialty Start Date End Date Desean Raymond MD [address] [place] [address] PCP - General Family Medicine 04/13/24 documented as of this encounter
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
--- OUTSIDE RECORDS SUMMARY | 2024-07-04 10:01 | External Medical Summary ---
Author Name Unknown Address Unknown Organization [id number]:[facility]ORY [facility] [place] - [address] [facility] [place] [place] [address] Laboratory Report Ordering Provider Test Date Status ANNETTE BRAUN 05/27/2024 09:50:25 Final Observation Date Value Abnormality Reference (Units ) Status Triglyceride 05/27/2024 09:50:25 150 <=174 ( mg/dL) Final Triglyceride Reference Range s (mg/dL):
<150 Acceptable
150-174 Borderline high
175-499 High
>=500 Very high Cholesterol 05/27/2024 09:50:25 179 <200 (mg /dL) Final Total Cholesterol Reference Ranges (mg/dL):
<200 Desirable
200-239 Borderline high
>=240 High HDL 05/27/2024 09:50:25 37 Below low normal >39 (mg/dL) Final HDL Cholesterol Reference Ra nges (mg/dL):
>=60 High (Desirable)
<50 Low (Undesirable) For Females
<40 Low (Undesirable) For Males NON-HDL CHOLESTEROL 05/27/2024 09:50:25 142 <=159 (mg/dL) Final Non-HDL Cholesterol Referenc e Range (mg/dL):
<100 Target level for high risk ASCVD patient
<130 Optimal for general population
130-159 Near optimal for general population
160-189 Borderline High
190-219 High
>=220 Very High LDL, (calculated) 05/27/2024 09:50:25 112 <= 129 (mg/dL) Final LDL Cholesterol Reference Ra nges (mg/dL):
<70 Target level for high risk ASCVD patient
<100 Optimal for general population
100-129 Near optimal for general population
130-159 Borderline high
160-189 High
>=190 Very high Performing Location LABORATORY [facility] - [address] [facility] [address]
--- OUTSIDE RECORDS SUMMARY | 2024-07-04 10:02 | External Medical Summary | Summary of Care ---
Author Name Unknown Organization [facility] Address [address] [facility] [place] [address] Phone [phone] Care Team Providers Care Securities Teller Name Role Phone Desean Raymond MD Primary Care Provider [phone] Reason for Visit * Reason Onset Date Comments Preop Pt Assessment 04/20/2024 Encounter Details Date Type Department Care Team (Late st Contact Info) Description [facility]20[facility] [address] [place] [address] Tom Orosco, [address] [place] [address] Preop Pt Assessment Allergies Active Allergy Reactions Criticality Noted Date Comments Corticosteroids Psych complications 12/18/2004 Injections are ok, unable to tolerate oral Indomethacin 06/12/2000 Can tolerate Ibuprofen OK. Warfarin Sodium 12/08/2010 Shakes, dizziness documented as of this encounter (statuses as of 04/20/2024) Medications Topiramate 25 MG Oral Tablet (topAMAX) Take 1 tablet nightly x 2 weeks then increase to 2 tablets nightly 60 Tablet 4 4 Active Additional Information Patient not taking.Reported on 04/20/2024 Azelastine HCl 0.1 % Nasal Solution (Astelin)Indicat ions:Schatzki's ring Administer 1 [place] into nostril in the morning and 1 [place] before bedtime. 90 mL 3 4 Active Additional Information Patient not taking.Reported on 04/20/2024 Cetirizine HCl 10 MG Oral Tablet (ZyrTEC)Indicati ons:Chronic rhinitis Take 1 Tablet by mouth at bedtime as needed for Rhinitis. 30 Tablet 11 4 Active Additional Information Patient not taking.Reported on 04/20/2024 Colchicine 0.6 MG Oral TabletIndication s:Gouty arthropathy Take 1 Tablet by mouth in the morning and 1 Tablet before bedtime. 180 Tablet 1 4 Active Additional Information Patient not taking.Reported on 04/20/2024 Pantoprazole Sodium 40 MG Oral Tablet Delayed Release (Protonix)Indica tions:Schatzki's ring,Esophageal dysphagia Take 1 Tablet by mouth in the morning. 1 hour before the first meal of the day.. 90 Tablet 3 4 Active Additional Information Patient not taking.Reported on 04/20/2024 valACYclovir HCl 500 MG Oral Tablet (Valtrex)Indicat ions:HSV-2 infection TAKE 1 TABLET BY MOUTH 3 TIMES A DAY FOR 3 DAYS FOR RECURRENT EPISODE 27 Tablet 1 4 Active Additional Information Patient not taking.Reported on 04/20/2024 Allopurinol 300 MG Oral Tablet (Zyloprim)Indica tions:Gouty arthropathy Take 1 Tablet by mouth in the morning. 90 Tablet 3 4 Active Additional Information Patient not taking.Reported on 04/20/2024 Fluticasone Propionate 50 MCG/ACT Nasal Suspension (Flonase)Indicat ions:Viral URI with cough Administer 2 Sprays into each nostril in the morning. 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 Flexor tenosynovitis of finger 11/11/2017 Mixed rhinitis 09/16/2017 Schatzki's ring 09/16/2017 Esophageal dysphagia 09/16/2017 Hepatitis A vaccination not up to date 7 Encounter for long-term (current) use of medicat ions 05/14/2016 Acute idiopathic gout of right hand 08/24/2015 Acute gout of right hand 07/14/2015 Overweight (BMI 25.0-29.9) 01/12/2015 Overview (01/12/2015): bmi= 29.29 01/12/15 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 Overweight (BMI 25.0-29.9) 05/27/2013 Overview (05/27/2013): bmi= 29.29 05/27/13 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 Tobacco use disorder 11/13/2011 Hemangioma of skin 11/13/2011 Vitamin D deficiency 09/16/2011 Gastroesophageal reflux 05/13/2011 Gouty arthropathy 05/13/2011 Chronic rhinitis 04/12/2011 DJD, BILATERAL KNEES, S/P TKA 10/09/10 DR DUPONT 0 11/01/2010 Intestinal infection due to Clostridium difficil e 11/01/2010 OVERWEIGHT, BMI= 27.42 09/12/10 09/12/2010 documented as of this encounter (statuses as of 04/20/2024) Resolved Problems Problem Noted Date Diagnosed Date Resolved Date Exposure to genital herpes 11/01/2013 1 Abdominal [...] 09/12/2011 01/12/2015 Myalgia and myositis 09/12/2011 015 Overweight (BMI 25.0-29.9) 04/12/2011 1 05/26/2018 Overview [...] as of this encounter (statuses as of 04/20/2024) Immunizations Name Administration Dates Next Due COVID-19 mRNA, LNP-s, No Pre serve, 2-Dose Series (MemfoACT) 07/04/2020,06/13/2020 HEP A - Hepatitis A (Adult > 18 yrs) 05/18/2014 11/15/2014 Pneumococcal Conjugate Vacci ne, 20-valent ([id number]) 01/22/2024 Pneumococcal Polysaccharide PPV23 (Pneumovax) 04/29/2007 Seasonal [...] Used Date Smoking Tobacco: Every Day Cigarettes 30 Started: 01/13/1992; Last attempted to quit: 01/12/2022 Smokeless Tobacco: Former Chew Quit: 04/07/2007 Comments:started back up may 9 Alcohol Use Standard Drinks/Week Comments No 0 [...] No 01/22/2024 Does the household have a [facility] source of income? 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 file Not on file documented as of this encounter Plan of Treatment Upcoming Encounters Date Type Department Care Team (Late st Contact Info) Description 04/26/2024 12:36 PM EST Hospital Encounter OR [facility], Operating Room [facility] [address] [place] [phone] Tom Orosco DO [address] [place] [address] 04/26/2024 12:36 PM EST - 04/26/2024 2:32 PM EST Surgery OR [facility], Operating Room [facility] [address] [place] [phone] Tom Orosco, DO [address] [place] [address] STEREOTACTIC CRANIAL EXTRADURAL NAVIGATION 04/29/2024 8:20 AM EST Office Visit Rheumatology [facility] [address] [place] [phone] Jaron Buckner MD [address] [place] [address] [place] [address] 05/04/2024 8:30 AM EST Office Visit Otolaryngology [facility] [address] [place] [address] Tom Orosco, DO [address] [place] [address] 05/27/2024 9:00 AM EST [facility] [phone] Desean Raymond MD [address] [facility] [address] 06/10/2024 7:00 AM EDT Office Visit Neurology [facility] [address] [facility] [place] [address] Krystina Spain PA-C [address] [place] [address] 07/22/2024 8:00 AM EDT Hospital Encounter ENDO [facility], Endoscopy Room [facility] [address] [place] [phone] Suni Orourke MD [address] [place] [address] 07/22/2024 8:00 AM EDT - 07/22/2024 8:30 AM EDT Surgery ENDO [facility], Endoscopy Room [facility] [address] [place] [phone] Suni Orourke MD [address] [place] [address] COLONOSCOPY FLEXIBLE PROXIMAL DIAGNOSTIC Scheduled Procedures Name Priority Associated Diagnoses Date/Ti me STEREOTACTIC CRANIAL EXTRADURAL NAVIGATION Antrochoanal polyp 04/26/2024 12:36 PM EST NASAL SINUS ENDOSCOPY MAXILLA ANTROSTOMY REMOVE TISSUE Antrochoanal polyp 04/26/2024 12:36 PM EST EXCISION NASAL POLYPS EXTENSIVE Antrochoanal polyp 04/26/2024 12:36 PM EST COLONOSCOPY FLEXIBLE PROXIMAL DIAGNOSTIC Recall Special screening [...] this encounter Medical Devices Implanted Type Area Penciller Device Identifier Shelf Expiration Date Model / Serial / Lot Ventralex St Hernia Patch Implanted:Qty: 1 on 10/25/2014 by Desean Hernandez MD at OR [facility] N/A: Abdomen INACTIVE CR [employer] 03/30/2016 [id number] / / [id number] documented as of this encounter Advance Directives [...] the patient have Health Care Power of Circuit Court Clerk? No Care Teams Securities Teller Relationship Specialty Start Date End Date Desean Raymond MD [address] [place] [address] PCP - General Family Medicine 04/13/24 documented as of this encounter
--- OUTSIDE RECORDS SUMMARY | 2024-07-04 10:02 | External Medical Summary | Summary of Care ---
Author Name Unknown Organization [facility] Address [address] [facility] [place] [address] Phone [phone] Care Team Providers Care Soil Sampler Name Role Phone Desean Raymond MD Primary Care Provider [phone] Reason for Visit * Reason Comments Outpatient Testing Encounter Details Date Type Department Care Team (Late st Contact Info) Description 04/29/2024 8:40 AM EST Laboratory Laboratory, [facility] [place] [phone] [facility] [address] Idiopathic chronic 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 Allergies Active Allergy Reactions Criticality Noted Date Comments Corticosteroids Psych complications 12/18/2004 Injections are ok, unable to tolerate oral Indomethacin 06/12/2000 Can tolerate Ibuprofen OK. Warfarin Sodium 12/08/2010 Shakes, dizziness documented as of this encounter (statuses as of 04/29/2024) Medications oxyCODONE-Acetam inophen 5-325 MG Oral Tablet (Percocet) Take 1 Tablet by mouth every 4 hours as needed for Pain 21 Tablet 04/26/2024 2:18 PM EST 04/26/2024 Active documented as of this encounter (statuses as of 04/29/2024) Active Problems Problem Noted Date Diagnosed Date [...] as of this encounter (statuses as of 04/29/2024) Resolved Problems Problem Noted Date Diagnosed Date [...] as of this encounter (statuses as of 04/29/2024) Immunizations Name Administration Dates Next Due COVID-19 mRNA, LNP-s, No Pre serve, 2-Dose Series (Dinnr) 07/04/2020,06/13/2020 HEP A - Hepatitis A (Adult > 18 yrs) 05/18/2014 11/15/2014 Pneumococcal Conjugate Vacci ne, 20-valent ([id number]) 01/22/2024 Pneumococcal Polysaccharide PPV23 (Pneumovax) 04/29/2007 Seasonal [...] Former Chew Quit: 04/07/2007 Comments:started back up mar ch 9th Alcohol Use Standard Drinks/Week Comments No 0 [...] 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 on file Not on file documented as of this encounter Plan of Treatment Upcoming Encounters Date Type Department Care Team (Late st Contact Info) Description 05/04/2024 8:30 AM EST Office Visit Otolaryngology [facility] [address] [place] [address] Tom Orosco DO [address] [place] [address] 05/27/2024 9:00 AM EST [facility] [address] [facility] [place] [phone] Desean Raymond MD 226 [facility] [place] [address] 06/10/2024 7:00 AM EDT Office Visit [facility] [address] Krystina Spain PA-C [facility] [place] [address] 07/22/2024 8:00 AM EDT Hospital Encounter ENDO [facility], Endoscopy Room [facility] [address] [place] [phone] Suni Orourke MD [address] [place] [address] 07/22/2024 8:00 AM EDT - 07/22/2024 8:30 AM EDT Surgery ENDO [facility], Endoscopy Room [facility] [address] [place] [phone] Suni Orourke MD [address] [place] [phone] COLONOSCOPY FLEXIBLE PROXIMAL DIAGNOSTIC 04/29/2025 8:00 AM EST Office Visit Rheumatology [facility] [address] [place] [phone] Jaron Buckner MD [facility] [address] Pending Results Name Type Priority Associated Diagnoses Date /Time URIC ACID Lab Routine Idiopathic chronic 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 04/29/2024 8:33 AM EST Scheduled Procedures Name Priority Associated [...] this encounter Medical Devices Implanted Type Area Director Of Revenue Cycle Management Device Identifier Shelf Expiration Date Model / Serial / Lot Ventralex St Hernia Patch Implanted:Qty: 1 on 10/25/2014 by Desean Hernandez MD at OR [facility] N/A: Abdomen INACTIVE CR [employer] 03/30/2016 [id number] / / [id number] documented as of this encounter Visit Diagnoses Diagnosis Idiopathic chronic 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 Chronic gouty arthropathy without mention of tophus (tophi) Special screening for malignant neoplasms, colon documented [...] the patient have Health Care Power of Shoe Stock Associate? No Care Teams Soil Sampler Relationship Specialty Start Date End Date Desean Raymond MD [address] [facility] [place] [address] PCP - General Family Medicine 04/13/24 documented as of this encounter
--- OUTSIDE RECORDS SUMMARY | 2024-07-04 10:02 | External Medical Summary | Summary of Care ---
Author Name Unknown Organization [facility] Address [address] [place] [address] Phone [phone] Care Team Providers Care Die Repairer Stamping Name Role Phone Desean Raymond MD Primary Care Provider [phone] Reason for Visit * Reason Comments Rheum Follow Up Follow up - gout * Evaluate & Treat - Unlimited Visits (Within 30 days (routine)) - Pending Review Specialty Diagnoses / Procedures Referred By Elly lui Referred To Contact Rheumatology Diagnoses Gouty arthropathy Desean Raymond MD Phone: tel: fax: Referral ID Status Reason Start Date Expiration Date Visits Requested Visits Authorized [id number] Pending Review Specialty Services Required [phone] Encounter Details Date Type Department Care Team (Late st Contact Info) Description 04/29/2024 8:20 AM EST Office Visit Rheumatology [facility] [address] [place] [phone] Jaron Buckner [facility] [address] [facility] [address] Idiopathic chronic gout of multiple sites with tophus* Allergies Active Allergy Reactions Criticality Noted Date [...] mRNA, LNP-s, No Pre serve, 2-Dose Series (katena) 07/04/2020,06/13/2020 HEP A - Hepatitis A (Adult > 18 yrs) 05/18/2014 11/15/2014 Pneumococcal Conjugate Vacci ne, 20-valent ([id number]) 01/22/2024 Pneumococcal Polysaccharide PPV23 (Pneumovax) 04/29/2007 Seasonal [...] 01/12/2022 Smokeless Tobacco: Former Chew Quit: 04/07/2007 Tobacco Cessation:Ready to Q uit: Not Asked; Counseling Given: Not Answered Comments:started back up june 06 Alcohol Use Standard Drinks/Week Comments No 0 [...] 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 Since the last visit reports his last gout attack was back December in his knee. States it started after a trauma to the knee. He had a uric acid checked at that time which was 10.4. He states he has been taking his allopurinol up until recently. He has not taken allopurinol since Friday because on Friday during a sinus surgery he had a reaction. He saw Allergy yesterday. Question of reaction to Unasyn. They told him to stop all his medications until they can do patch testing in several weeks. He reports some gouty tophi on the left elbow.. Today's not have any gout related issues. Musculoskeletal ROS: . Normal Other ROS: . Constitutional: normal . Head normal . Eyes: normal . Ears, nose, throat, mouth: normal . Cardiovascular: normal . Respiratory: normal . Gastrointestinal: normal . Genitourinary: normal . Skin: see abvoe All other ROS reviewed and negative Social History: Social History Tobacco Use Smoking status: Every Day Current packs/day: 0.00 Average packs/day: 1 pack/day for 30.0 years (30.0 ttl pk-yrs) Types: Cigarettes Start date: 01/13/1992 Last attempt to quit: 01/12/2022 Years since quittin.2 Smokeless tobacco: Former Types: Chew Quit date: 04/07/2007 Tobacco comments: started back up june 06 Substance Use Topics Alcohol use: No Comment: rarely Vaping/E-Cigarette Use Vaping/E-Cigarette Use Never User Vaping/E-Cigarette Substances Vaping/E-Cigarette Devices working Current Outpatient Medications Medication Sig Dispense Refill oxyCODONE-Acetaminophen 5-325 MG Oral Tablet (Percocet) Take 1 Tablet by mouth every 4 hours as needed for Pain 21 Tablet 0 No current facility-administered medications for this visit. Physical Exam: Temp 36.2 °C (97.1 °F) (Infrared ) | Wt 91.2 kg (201 lb) | BMI 28.84 kg/m² | BSA 2.12 m² General: alert, no distress, and well nourished Lymph: no palpable lymphadenopathy Heart: regular rate & rhythm and no gallops Lungs: clear to auscultation , no rales, wheezes or rhonchi Abdomen: abdomen soft, non-tender, and normal bowel sounds Skin: skin color, texture, turgor are normal, gouty tophi noted over the left elbow Musculoskeletal Exam: Bilateral knee replacements noted No synovitis of the hands or feet No gouty tophi of the hands or feet, tophi noted over the left elbow Assessment: ([id number]) Idiopathic chronic 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 (primary encounter diagnosis) Discussed rechecking uric acid level. Will also need to contact allergy about him being off his allopurinol for gout given his potential risk for flares. Plan: 1. Check uric acid level today 2. Will need to contact allergy about his allopurinol 3. Could consider Krystexxa then resuming allopurinol 4. Return to clinic in 1 year or sooner pending course Jaron Buckner MD Department of Rheumatology documented in this encounter Nursing Notes * Dee Gómez LPN - 04/29/2024 8:09 AM EST Chief Complaint Patient presents with Rheum Follow Up Follow up - gout documented in this encounter Plan of Treatment Upcoming Encounters Date Type Department Care Team (Late st Contact Info) Description 05/04/2024 8:30 AM EST Office Visit Otolaryngology [facility] [address] [place] [address] Tom Orosco DO [address] [place] [address] 05/27/2024 9:00 AM EST [facility] [address] [facility] [place] [phone] Desean Raymond MD [address] [facility] [place] [address] 06/10/2024 7:00 AM EDT Office Visit Neurology [facility] [address] [place] [address] Krystina Spain PA-C [address] [place] [address] 07/22/2024 8:00 AM EDT Hospital Encounter ENDO [facility], Endoscopy Room [facility] [address] [place] [phone] Suni Orourke MD [address] [address] 07/22/2024 8:00 AM EDT - 07/22/2024 8:30 AM EDT Surgery ENDO [facility], Endoscopy Room [facility] [address] [place] [address] Suni Orourke MD [address] [place] [phone] COLONOSCOPY FLEXIBLE PROXIMAL DIAGNOSTIC 04/29/2025 8:00 AM EST Office Visit Rheumatology [facility] [address] [place] [phone] Jaron Buckner MD [facility] [place] [address] Pending Results Name Type Priority Associated Diagnoses Date /Time URIC ACID Lab Routine Idiopathic chronic 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 04/29/2024 8:33 AM EST Scheduled Orders Name Type Priority Associated Diagnoses Orde r Schedule URIC ACID Lab Routine Idiopathic chronic gout of multiple sites with tophus Expected: 04/29/2024 (Approximate), Expires: 04/29/2025 Scheduled Procedures Name Priority Associated Diagnoses Date/Ti [...] this encounter Medical Devices Implanted Type Area Branch Lending Officer Device Identifier Shelf Expiration Date Model / Serial / Lot Ventralex St Hernia Patch Implanted:Qty: 1 on 10/25/2014 by Desean Hernandez MD at OR [facility] N/A: Abdomen INACTIVE CR [employer] 03/30/2016 [id number] / / [id number] documented as of this encounter Visit Diagnoses Diagnosis Idiopathic chronic gout of multiple sites with tophus- Primary Chronic gouty arthropathy with tophus (tophi) Special screening for malignant neoplasms, [...] the patient have Health Care Power of Mailroom Associate? No Care Teams Die Repairer Stamping Relationship Specialty Start Date End Date Desean Raymond MD [address] [facility] [place] [address] PCP - General Family Medicine 04/13/24 documented as of this encounter"
--- OUTSIDE RECORDS SUMMARY | 2024-07-04 10:02 | External Medical Summary | Summary of Care ---
Author Name Unknown Organization [facility] Address [address] [place] [address] Phone [phone] Care Team Providers Care Picking Supervisor Name Role Phone Desean Raymond MD Primary Care Provider Reason for Referral * Precert (Within 10 days (routine)) - Pending Review Specialty Diagnoses / Procedures Referred By Elly lui Referred To Contact Radiology Diagnoses Antrochoanal polyp Procedures CT SINUS IMAGE GUIDED WO CONTRAST Tom Orosco DO [address] [place] [address] Phone: tel: fax: Referral ID Status Reason Start Date Expiration Date V isits Requested Visits Authorized [id number] Pending Review 03/03/[phone] Reason for Visit * Reason Comments NEW PATIENT Left sinus polyp * Evaluate & Treat - Unlimited Visits (Within 30 days (routine)) - Authorized Specialty Diagnoses / Procedures Referred By Elly lui Referred To Contact Otolaryngology Diagnoses Nasal polyp Desean Raymond MD [address] [place] [address] Phone: tel: fax: Referral ID Status Reason Start Date Expiration Date Visits Requested Visits Authorized [id number] Authorized Specialty Services Required 01/28/[phone] Encounter Details Date Type Department Care Team (Late st Contact Info) Description 02/18/2024 8:00 AM EST Office Visit Otolaryngology [facility] [address] [place] [address] Tom Orosco, [address] [place] [address] Antrochoanal polyp*; Nasal polyp [J33.9] Allergies Active Allergy Reactions Criticality Noted Date Comments Corticosteroids Psych complications 12/18/2004 Injections are ok, unable to tolerate oral Indomethacin 06/12/2000 Can tolerate Ibuprofen OK. Warfarin Sodium 12/08/2010 Shakes, dizziness documented as of this encounter (statuses as of 02/18/2024) Medications cetirizine (ZYRTEC) 10 MG TabletIndication s:Chronic rhinitis Take 1 Tab by mouth at bedtime as needed for Rhinitis. 30 Tab 11 9 Active valACYclovir HCl 500 MG Oral Tablet (Valtrex)Indicat ions:HSV-2 infection TAKE 1 TABLET BY MOUTH 3 TIMES A DAY FOR 3 DAYS FOR RECURRENT EPISODE 27 Tablet 1 2 Active Fluticasone Propionate 50 MCG/ACT Nasal Suspension (Flonase)Indicat ions:Viral URI with cough Administer 2 Sprays into each nostril in the morning. 1 Each 3 Active Colchicine 0.6 MG Oral Tablet (Colcrys)Indicat ions:Gouty arthropathy Take 1 Tablet by mouth in the morning and 1 Tablet before bedtime. 180 Tablet 3 3 Active Allopurinol 300 MG Oral Tablet (Zyloprim)Indica tions:Gouty arthropathy Take 1 Tablet by mouth in the morning. 90 Tablet 3 3 Active Pantoprazole Sodium 40 MG Oral Tablet Delayed Release (Protonix)Indica tions:Schatzki's ring,Esophageal dysphagia Take 1 Tablet by mouth in the morning. 1 hour before the first meal of the day.. 90 Tablet 3 3 Active Azelastine HCl 0.1 % Nasal Solution (Astelin)Indicat ions:Schatzki's ring Administer 1 Mascotte into nostril in the morning and 1 Mascotte before bedtime. 90 mL 3 3 Active Topiramate 25 MG Oral Tablet (topAMAX) Take 1 tablet nightly x 2 weeks then increase to 2 tablets nightly 60 Tablet 4 4 Active documented as of this encounter (statuses as of 02/18/2024) Active Problems Problem Noted Date Diagnosed Date [...] as of this encounter (statuses as of 02/18/2024) Resolved Problems Problem Noted Date Diagnosed Date [...] as of this encounter (statuses as of 02/18/2024) Immunizations Name Administration Dates Next Due COVID-19 mRNA, LNP-s, No Pre serve, 2-Dose Series ([employer]) 07/04/2020,06/13/2020 HEP A - Hepatitis A (Adult > 18 yrs) 05/18/2014 11/15/2014 Pneumococcal Conjugate Vacci ne, 20-valent ([id number]) 01/22/2024 Pneumococcal Polysaccharide PPV23 (Pneumovax) 04/29/2007 Seasonal [...] 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 on file Not on file documented as of this encounter Last Filed Vital Signs Vital Sign Reading Time Taken Comments Blood Pressure - - Pulse - - Temperature 35.7 °C (96.2 °F) 02/18/2024 7:59 AM ES T Respiratory Rate - - Oxygen Saturation - - Inhaled Oxygen Concentration - - Weight 92.3 kg (203 lb 6.4 oz) 02/18/2024 7:59 A M EST Height 182.9 cm (6') 02/18/2024 7:59 AM EST Body Mass Index 27.59 02/18/2024 7:59 AM EST documented in this encounter Progress Notes * Tom Orosco, - 02/18/2024 8:17 AM EST 02/18/2024 HISTORY OF PRESENT ILLNESS This 58 year old male is seen at the request of Desean Raymond MD for the initial evaluation of left-sided antral choanal polyp. Patient had an MRI of his brain for headaches and this was noted incidentally. He does note significant left-sided nasal obstruction for many years. No previous sinus surgery but did have a septal surgery in the past after nasal trauma. No history of recurrent sinusitis.. Problem List Patient Active Problem List Diagnosis OVERWEIGHT, BMI= 27.42 09/12/10 DJD, BILATERAL KNEES, S/P TKA 10/09/10 DR DUPONT Intestinal infection due to Clostridium difficile Chronic rhinitis Gastroesophageal reflux Gouty arthropathy Vitamin D deficiency Tobacco use disorder Hemangioma of skin BPH with obstruction/lower urinary tract symptoms Overweight (BMI 25.0-29.9) HSV-2 infection Overweight (BMI 25.0-29.9) Acute idiopathic gout of right hand Hepatitis A vaccination not up to date Encounter for long-term (current) use of medications Mixed rhinitis Schatzki's ring Esophageal dysphagia Flexor tenosynovitis of finger Wrist arthritis Acute gout of right hand Closed injury of head Post-concussion headache Past Medical History: Diagnosis Date BPH with [...] performed by Dario Seay MD at ENDOSCOPY [facility] EGD, FLEXIBLE, DIAGNOSTIC 01/08/2013 mild inflammation end of esophagus consistant with acid reflux --no evidence of barretts --mild irritation of stomach EGD, FLEXIBLE, DIAGNOSTIC 09/19/2014 Schatzki ring, HH/ESOPHAGOGASTRODUODENOSCOPY (EGD), FLEXIBLE, TRANSORAL, DIAGNOSTIC performed by Dario Seay MD at ENDOSCOPY [facility] EGD, FLEXIBLE, DIAGNOSTIC 11/20/2016 Schatzki ring, sm hiatal hernia, normal bx/[facility] EGD, FLEXIBLE, DIAGNOSTIC 08/12/2018 Schatzki ring, hiatal hernia/ESOPHAGOGASTRODUODENOSCOPY (EGD), FLEXIBLE, TRANSORAL, DIAGNOSTIC performed by Dario Seay MD at ENDOSCOPY [facility] EGD, FLEXIBLE, DIAGNOSTIC 01/01/2022 Schatzki ring, hiatal hernia, normal bx / ESOPHAGOGASTRODUODENOSCOPY (EGD), FLEXIBLE, TRANSORAL, DIAGNOSTIC performed by Duong Jean MD at ENDOSCOPY [facility] EGD, FLEXIBLE, INSERT WIRE, PASS DILATOR 04/23/2010 mild schatzki ring dilated and bx hiatal hernia EGD, FLEXIBLE, W/BIOPSY 04/23/2010 acid reflux EGD, FLEXIBLE, W/BIOPSY 05/24/2011 medium hiatal hernia , dilatation , no barretts changes INCISE FOOT/TOE EXTENSOR TENDON Left 05/19/2023 LEFT TENOTOMY EXTENSOR TOE OR FOOT OPEN performed by Roberto Ramirez DPM at OR [facility] KNEE ARTHROSCOPY, DIAGNOSTIC 01/2000 For gout, Left, multiple MISCELLANEOUS ORDER ([facility] ONLY) Bilateral elbow bursa surgery related to gout REMOVAL OF 5TH METATARSAL HEAD Left 05/19/2023 OSTECTOMY COMPLETE EXCISION 5TH METATARSAL HEAD performed by Roberto Ramirez DPM at OR [facility] REPAIR OF NASAL SEPTUM 2004 Nasal Septum Repair - twenties and 2004 SHOULDER ARTHROSCOPY/DEBRIDEMENT Right 10/2018 Dr[facility], trigger finger-ring UMBIL HERNIA REPAIR (REDUCIBLE) AGE 5+YR 10/25/2014 10/25/2014 repair of umbilical hernia - Adama Horner OR - Dr. Desean Hernandez Medications Current Outpatient Medications Medication Sig Dispense Refill cetirizine (ZYRTEC) 10 MG Tablet Take 1 Tab by mouth at bedtime as needed for Rhinitis. 30 Tab 11 valACYclovir HCl 500 MG Oral Tablet (Valtrex) TAKE 1 TABLET BY MOUTH 3 TIMES A DAY FOR 3 DAYS FOR RECURRENT EPISODE 27 Tablet 1 Fluticasone Propionate 50 MCG/ACT Nasal Suspension (Flonase) Administer 2 Sprays into each nostril in the morning. 1 Each 0 Colchicine 0.6 MG Oral Tablet (Colcrys) Take 1 Tablet by mouth in the morning and 1 Tablet before bedtime. 180 Tablet 3 Allopurinol 300 MG Oral Tablet (Zyloprim) Take 1 Tablet by mouth in the morning. 90 Tablet 3 Pantoprazole Sodium 40 MG Oral Tablet Delayed Release (Protonix) Take 1 Tablet by mouth in the morning. 1 hour before the first meal of the day.. 90 Tablet 3 Azelastine HCl 0.1 % Nasal Solution (Astelin) Administer 1 Mascotte into nostril in the morning and 1 Mascotte before bedtime. 90 mL 3 Topiramate 25 MG Oral Tablet (topAMAX) Take 1 tablet nightly x 2 weeks then increase to 2 tablets nightly 60 Tablet 4 No current facility-administered medications for this visit. [...] cervical Diabetes Mother pawan dunn Cancer Sister xochi confer skin cancer Allergies Sister xochi confer allergic rhinitis, cat allergy Social History Social History Tobacco Use Smoking status: Every Day Current packs/day: 0.00 Average packs/day: 1 pack/day for 30.0 years (30.0 ttl pk-yrs) Types: Cigarettes Start date: 01/13/1992 Last attempt to quit: 01/12/2022 Years since quittin.1 Smokeless tobacco: Former Types: Chew Quit date: [...] PMH and Problem List). Physical Examination: Temp 35.7 °C (96.2 °F) (Tympanic) | Ht 1.829 m (6') | Wt 92.3 kg (203 lb 6.4 oz) | BMI 27.59 kg/m² | BSA 2.17 m² PHYSICAL EXAM General: This is a [...] was non-obstructing. The turbinates were without abnormality. Oral Cavity: Examination of the oral cavity revealed no mass lesions nor infection. The palate was noted to be intact without evidence of clefting. The tongue exhibited normal mobility. Mucosa was moist without lesion. The lips were free of lesion. Gums were free of inflammation. Dentition: Unremarkable Oropharynx: The oral pharynx was free of mass lesion or mucosal abnormality. The palate was noted to be without lesion. The uvula was normal appearing. The tonsils were unremarkable. Ears: Examination of the ears revealed that the auricles were normally formed with no lesions. Neck: Visualization and palpation of the neck revealed no mass lesions, no thyromegaly or thyroid masses. No skin lesions or inflammatory processes were detected. The cervical musculature was normal to palpation. Lymphatics (cervical): There were no palpable lymph nodes in the posterior triangle, submandibular triangle, jugulodigastric region, or central neck. Lungs: Breathing quietly. No use of accessory muscles. Heart: Regular rate. No JVD. Procedure: In order to assess the paranasal sinuses, endoscopy of the nose and paranasal sinuses was performed. The nose was decongested with topical oxymetazoline 0.05% spray and then anesthetized with topicalLidocaine 4% spray. The scope was used to examine each side of the nose. There were no masses visualized. The nasal mucosa was without lesion. Polyp noted emanating from the left maxillary sinus. Theseptum was non-obstructing. The nasopharynx was without lesion. The patient tolerated the procedurewell. ASSESSMENT: Left antral choanal polyp PLAN: He is a candidate for elective nasal/sinus surgery, specifically left endoscopic maxillary antrostomy with removal of tissue with fusion image guidance We discussed the procedure in detail and explained the risks of bleeding, vision loss, CSF leak, infection (including meningitis), scarring, chronic crusting, nasoseptal perforation, and general anesthesia. It was also discussed that the patient may have nasal obstruction and headaches for several days postoperatively. He verbalized understanding of the procedure and gave informed consent. He was consulted to avoid ibuprofen or aspirin products for ten days prior to surgery. He will be called the night before surgery for a time to arrive. I spent a total of 61 minutes on the date of service in preparation, delivery, and documentation ofthe care provided to the above patient, excluding any time spent on the performance of any procedures or separately billable services. Tom Orosco DO, [facility] Injection Molding Machine Tender, Department of Otolaryngology-Head and Neck Surgery [facility], [place] 02/18/2024 9:06 AM documented in this encounter Nursing Notes * Zackary Brown CMA - 02/18/2024 8:00 AM EST Chief Complaint Patient presents with NEW PATIENT Left sinus polyp Zackary Zhou is a 58 year old male who presents today with a left sinus polyp that was seen on an MRI on 01/14/2024. He has no current symptoms. documented in this encounter Plan of Treatment Upcoming Encounters Date Type Department Care Team (Late st Contact Info) Description 04/09/2024 7:00 AM EST Imaging Radiology [address] [place] [address] 04/26/2024 Hospital Encounter OR [facility], Operating Room [facility] [address] [place] [phone] Tom Orosco, [address] [place] [address] 04/29/2024 8:20 AM EST Office Visit Rheumatology [place] [phone] [facility] [place] [address] Jaron Buckner MD [facility] [place] [address] 05/04/2024 8:30 AM EST Office Visit Otolaryngology [facility] [address] [place] [address] Tom Orosco, [address] [place] [address] 05/27/2024 9:00 AM EST [address] [address] Desean Raymond MD [address] [place] [address] [place] [address] 06/10/2024 7:00 AM EDT Office Visit Neurology [facility] [place] [address] [facility], [place] [address] Krystina Spain PA-C [address] [place] [address] 07/22/2024 8:00 AM EDT Hospital Encounter ENDO [facility], Endoscopy Room [facility] [address] [place] [address] Suni Orourke MD [address] [address] 07/22/2024 8:00 AM EDT - 07/22/2024 8:30 AM EDT Surgery ENDO [facility], Endoscopy Room [facility] [address] [place] [phone] Suni Orourke MD [address] [place] [address] COLONOSCOPY FLEXIBLE PROXIMAL DIAGNOSTIC Scheduled Orders Name Type Priority Associated Diagnoses Orde r Schedule CT SINUS IMAGE GUIDED WO CONTRAST Medical Imaging Routine Antrochoanal polyp Expected: 03/03/2024, Expires: 03/19/2025 Scheduled Procedures Name Priority Associated Diagnoses Date/Ti me NASAL SINUS ENDOSCOPY [place] ANTROSTOMY REMOVE TISSUE Antrochoanal polyp EXCISION NASAL POLYPS EXTENSIVE Antrochoanal polyp COLONOSCOPY FLEXIBLE PROXIMAL DIAGNOSTIC Recall Special screening [...] 01/16/2023, 12/19/2021, Additional history exists Pneumococcal Vaccine: Pediatrics (0 to 5 Years) and At-Risk Patients (6 to 64 Years) Completed 01/22/2024, 04/29/2007 HPV (Gardasil) Vaccine Aged Out No lo nger eligible based on patient's age to complete this topic MENINGOCOCCAL (MENACTRA/MENVEO) Aged Out No longer eligible based on patient's age to complete this topic documented as of this encounter Medical Devices Implanted Type Area Coordinator Integrated Marketing Device Identifier Shelf Expiration Date Model / Serial / Lot Ventralex St Hernia Patch Implanted:Qty: 1 on 10/25/2014 by Desean Hernandez MD at OR [facility] N/A: Abdomen INACTIVE CR [employer] 03/30/2016 [id number] / / [id number] documented as of this encounter Visit Diagnoses Diagnosis Antrochoanal polyp- Primary Polyp of nasal cavity Nasal polyp [J33.9] Unspecified nasal polyp Antrochoanal polyp- Primary Polyp of nasal cavity [...] the patient have Health Care Power of Inclined Railway Operator? No Care Teams Picking Supervisor Relationship Specialty Start Date End Date Desean Raymond MD [address] [place] [facility] [address] PCP - General Family Medicine 03/16/20 documented as of this encounter"
--- OUTSIDE RECORDS SUMMARY | 2024-07-04 10:02 | External Medical Summary | Summary of Care ---
Author Name Unknown Organization [facility] Address [address] [place] [address] Phone [phone] Care Team Providers Care Grease Monkey Name Role Phone Desean Raymond MD Primary Care Provider [phone] Reason for Visit * Reason Comments Return Neuro Headache Syncope * Evaluate & Treat - Unlimited Visits (Within 30 days (routine)) - Authorized Specialty Diagnoses / Procedures Referred By Elly lui Referred To Contact Neurology Diagnoses Post-concussion headache Desean Raymond MD [address] [place] [address] Phone: tel: fax: Referral ID Status Reason Start Date Expiration Date Visits Requested Visits Authorized [id number] Authorized Specialty Services Required 01/07/2025 [id number] Encounter Details Date Type Department Care Team (Late st Contact Info) Description 02/12/2024 9:00 AM EST Office Visit Neurology [facility] Rekha [place] [address] [place] [address] Krystina Spain PA-C [address] [facility] [place] [address] Post-concussion headache*; Medication overuse headache Allergies Active Allergy Reactions Criticality Noted Date Comments Corticosteroids Psych complications 12/18/2004 Injections are ok, unable to tolerate oral Indomethacin 06/12/2000 Can tolerate Ibuprofen OK. Warfarin Sodium 12/08/2010 Shakes, dizziness documented as of this encounter (statuses as of 02/12/2024) Medications cetirizine (ZYRTEC) 10 MG TabletIndication s:Chronic [...] Nasal Solution (Astelin)Indicat ions:Schatzki's ring Administer 1 Trenton into nostril in the morning and 1 Trenton before bedtime. 90 mL 3 3 Active Topiramate 25 MG Oral Tablet (topAMAX) Take 1 tablet nightly x 2 weeks then increase to 2 tablets nightly 60 Tablet 4 4 Active documented as of this encounter (statuses as of 02/12/2024) Active Problems Problem Noted Date Diagnosed Date Post-concussion headache 02/12/2024 Closed injury of head [...] as of this encounter (statuses as of 02/12/2024) Resolved Problems Problem Noted Date Diagnosed Date [...] as of this encounter (statuses as of 02/12/2024) Immunizations Name Administration Dates Next Due COVID-19 mRNA, LNP-s, No Pre serve, 2-Dose Series ([employer]) 07/04/2020,06/13/2020 HEP A - Hepatitis A (Adult > 18 yrs) 05/18/2014 11/15/2014 Pneumococcal Conjugate Vacci ne, 20-valent ([id number]) 01/22/2024 Pneumococcal Polysaccharide PPV23 (Pneumovax) 04/29/2007 Seasonal [...] No 01/22/2024 Does the household have a [facility] income? (Household - [...] Industry Job Start Date Job End Date [employer] Not on file Not on file Not on file documented as of this encounter Last Filed Vital Signs Vital Sign Reading Time Taken Comments Blood Pressure 114/68 02/12/2024 8:49 AM EST Pulse 66 02/12/2024 8:49 AM EST Temperature 36.1 °C (96.9 °F) 02/12/2024 8:49 AM ES T Respiratory Rate 16 02/12/2024 8:49 AM EST Oxygen Saturation 95% 02/12/2024 8:49 AM EST Inhaled Oxygen Concentration - - Weight 91.9 kg (202 lb 9.6 oz) 02/12/2024 8:49 A M EST Height - - Body Mass Index 27.48 01/22/2024 11:43 AM EDT documented in this encounter Patient Instructions * Patient Instructions* Krystina Spain PA-C - 02/12/2024 9:15 AM EST LIFESTYLE CHANGES TO HELP HEADACHES: Natural supplements Magnesium oxide 400 mg daily (especially effective for aura; can cause some loosening of stool, butshould not cause diarrhea) Vit B2 400mg daily (also called riboflavin; this vitamin pill is bright yellow and will turn urine the same bright yellow color) CoEnzyme Q10 150 mg twice a day (can result in increased energy because it is an important agent inenergy utilization) If planning to use more than one supplement, add one at a time in case of adverse reactions. You will know exactly which medication causes a side effect only if you start one new medication at a time. Healthy sleeping habits Aim to get around 8 hours of sleep per night. If you have trouble falling asleep, you may try melatonin. Take melatonin (3 mg or 5 mg tablets) starting at 5-6 mg one hour before bed. If you have trouble falling asleep for more than 30 minutes, you should get up, leave the bedroom, and resume your daily activities until you feel sleepy again. If you have trouble staying asleep, first try to identify what might be waking you up. Are you getting up frequently to urinate? Are you waking up from pain? Discuss these issues with your healthcareprovider. Practice good sleep hygiene. If family members or pets are preventing you from getting restful sleep, you may need to re-consider your sleeping arrangements. Talk to your healthcare provider if you snore or gasp for air while sleeping. These may be signs ofobstructive sleep apnea, and you may benefit from being evaluated by a sleep medicine provider. Healthy eating habits Try to avoid skipping meals. You should aim to eat about well-balanced meals per day to prevent your blood sugar from fluctuating too much. Try not to skip breakfast. We recommend the Mediterranean diet: Enjoy whole gains, legumes, fruits, vegetables, healthy fats, herbs, and spices daily. Enjoy fish and seafood about 2-3 times per week. Enjoy poultry, eggs, and daily about 1-2 times per week. Enjoy red meats and sweets sparingly. Try to identify foods that may be triggering your headaches. Common foods that can trigger headaches include chocolate, caffeinated beverages, artificial sweeteners, hot dogs, sausage, barajas, deli meats, pepperoni, aged cheese, and red wine. Stay hydrated Aim to drink about 64 ounces of water per day (about 8 cups). Caffeinated beverages do not count toward your daily water intake. Caffeine is a common trigger for headaches. If you feel that caffeine triggers your headaches, try to limit your caffeine use to less than 200 mg per day. If you are already used to consuming an excessive amount of caffeine, try to cut back by about 10% per week. Avoid tobacco Using tobacco can trigger headaches due to nicotine. You can get nicotine headaches from any form of tobacco use including cigars, cigarettes, vapes, chewing tobacco, and nicotine gum. The only way to get rid of nicotine headaches is to stop using nicotine. You may also get a headache when you try to stop smoking. Work with your healthcare provider to form a plan to control your headaches while you quit tobacco use. Identify your triggers It may be a good idea to keep a log of your headaches so that you can identify your triggers. You can find some helpful apps on your phone or computer to log your headaches. I recommend Migraine Danilo, but there are others: Migraine Insight, [place], Simple Migraine Tracker, and many more. Stay active You should aim to get about 30 minutes of dedicated exercise time, about 5 days per week. It is okay to start lower at first and work your way up to this goal. Dedicated exercise time does not include time that you are at work or doing house chores. While many people are active doing these activities, it is important to set aside dedicated time for you to focus on increasing your heart rate. Dedicated exercise time does not always have to be strenuous. You can start by going for a daily walk, doing yoga, or other gentle aerobic exercise. Manage stress Stress can be a common trigger for headaches. Many people find benefit with deep breathing, yoga, and meditation. Therapy can be helpful for people with headaches. If you would like to start talking to a therapist, you can start the search on SharesPost, or talk to your healthcare provider to see who they recommend. Some people may find benefit from massage therapy, and there is good evidence to support acupuncture to treat headaches. Avoid over-using headache medications Medication overuse headache (MOH) can occur when you use headache medications too frequently. Essentially, using rescue headache medications too much can sometimes make your headaches worse and decrease the effectiveness of preventative headache medications. Make sure your headache provider is aware if you are taking Tylenol, ibuprofen, or other yjte-wvo-hpazbjh headache medications. Taking dosw-cau-pyeomnq pain relievers more than 3 times per week can cause medication overuse headache. documented in this encounter Progress Notes * Krystina Spain PA-C - 02/12/2024 9:00 AM EST HISTORY & PHYSICAL EXAMINATION - NEUROLOGY Name: Zackary Zhou Date: 02/11/2024 Time: 11:29 AM Chief Complaint Patient presents with Return Neuro Headache Syncope SUBJECTIVE: Zackary Zhou is a 58 year old male with history of rhinitis, gout, BPH, GERD who presents today for follow- up of headaches. Sustained a concussion on 02/05/23 while at work at [employer]. Hit his left congregational area against ametal cage. CT head/ neck negative for acute findings. Developed daily left congregational headaches which radiate across his eyes or back of head. Described as apressure/dull ache. Associated with photophobia and blurry vision. Typically develops at some pointin the morning. Resolves with Goodys Powder (acetaminophen 325mg / ASA 500mg / caffeine 65mg) but then recurs in 3-4 hours. He estimates he takes Goodys powder 4-5x/ day for the past year. He was hit again in the left congregational area with a toolbox door in late December. No LOC. MRI brain 01/14/24: Small focus of left temporal encephalomalacia which can be a post traumatic finding. Generalized volume loss and mild chronic small vessel ischemic disease. Typically sleeps 8pm - 3am; wakes up few times to urinate. No caffeine use or ETOH use. Hydrates well. Smokes 1ppd. History of corticosteroid psychosis with oral prednisone. His daughter became suicidal after taking amitriptyline so he is reasonably wary of that medication. Allergies: Corticosteroids, Indomethacin, and Warfarin sodium Problem list: Patient Active Problem List Diagnosis OVERWEIGHT, BMI= [...] of right hand Closed injury of head Past Medical History: Past Medical History: Diagnosis Date BPH with obstruction/lower urinary tract symptoms 05/18/2012 Chronic rhinitis 04/12/2011 DJD, BILATERAL KNEES, S/P TKA 10/09/10 DR DUPONT 11/01/2010 FX PHALANX, FOOT-CLOSED 04/07/2008 Gastroesophageal reflux 05/13/2011 Gouty arthropathy, unspecified 05/13/2011 Intestinal infection due to Clostridium difficile 11/01/2010 Tobacco use disorder 11/13/2011 Vitamin D deficiency 09/16/2011 Current Outpatient Medications: Current Outpatient Medications Medication Sig Dispense Refill [...] 0.1 % Nasal Solution (Astelin) Administer 1 Trenton into nostril in the morning and 1 Trenton before bedtime. 90 mL 3 Topiramate 25 MG Oral Tablet (topAMAX) Take 1 tablet nightly x 2 weeks then increase to 2 tablets nightly 60 Tablet 4 No current facility-administered medications for this visit. Family History: Family History Problem Relation Name Age of Onset Gastro-intestinal disorder Father dysphagia Cancer Mother uterus (?) Allergies Daughter egg allergy Cancer Father 09/2009 of heart failure Heart Disorder Father 09/2009 Lung Disorder Father 09/2009 COPD, fomer smoker Diabetes Father 09/2009 Cancer Mother pawan dunn cervical Diabetes Mother pawan dunn Cancer Sister xpriscilla confer skin cancer Allergies Sister vanessa confer allergic rhinitis, cat allergy SOCIAL HISTORY: Social History Tobacco Use Smoking status: Every Day Current packs/day: 0.00 Average packs/day: 1 pack/day for 30.0 years (30.0 ttl pk-yrs) Types: Cigarettes Start date: 01/13/1992 Last attempt to quit: 01/12/2022 Years since quittin.0 Smokeless tobacco: Former Types: Chew Quit date: 04/07/2007 Tobacco comments: started back up june 06 Vaping Use Vaping status: Never Used Substance Use Topics Alcohol use: No Comment: rarely Drug use: No REVIEW OF SYSTEMS: As above OBJECTIVE: Physical Examination: BP 114/68 | Pulse 66 | Temp 36.1 °C (96.9 °F) (Tympanic) | Resp 16 | Wt 91.9 kg (202 lb 9.6 oz) |SpO2 95% | BMI 27.48 kg/m² | BSA 2.16 m² General appearance: healthy, alert, mild distress; +photophobia Physical Exam: Constitutional: Appearance normally developed,well nourished,no deformities,well groomed Head and face: normocephalic,atraumatic Respiratory: normal effort,clear to auscultation Cardiovascular: normal heart sounds and regular rhythm Psychiatric: normal judgement and insight,normal mood,normal affect NEUROLOGIC EXAMINATION: Mental Status Exam: alert,oriented to time, place, person,normal recent memory,normal remote memory,normal attention span,normal concentration,normal language,normal fund of knowledge Cranial Nerves: CN 2,3 - PERRL CN 3, 4, 6 - Extra-ocular Movements Intact,no nystagmus CN 5 - Facial sensation intact and equal bilaterally CN 7 - no facial assymetry CN 8 - hearing grossly intact CN 11- good shoulder shrug Coordination: normal to qeknzf-tfip-qpxdrw Gait/station: Gait appears to be normal, no pathological gaits. Muscle exam: Arm Right Left Leg Right Left Deltoid 5/5 5/5 Iliopsoas 5/5 5/5 Biceps 5/5 5/5 Triceps 5/5 5/5 Reflexes: Biceps BR Patellar Right 2+ 2+ 2+ Left 2+ 2+ 2+ LABORATORY: Results for orders placed or performed in visit on 05/05/23 LIPID PANEL WITH DIRECT LDL IF TG IS HIGH Result Value Ref Range Triglycerides 178 (H) <=174 mg/dL Cholesterol 204 (H) <200 mg/dL HDL Cholesterol 44 >39 mg/dL Non-HDL Cholesterol 160 (H) <=159 mg/dL LDL Cholesterol 124 <=129 mg/dL Results for orders placed or performed in visit on 01/22/24 VITAMIN B12 Result Value Ref Range Vitamin B12 388 232 - 1,245 pg/mL Review of prior Studies: MRI Brain w/o contrast 01/14/24 FINDINGS Several small nonspecific foci of FLAIR hyperintensity in the white matter. The ventricles are moderately enlarged and there is likely generalized volume loss. Small focus of left middle temporal gyrus encephalomalacia, series 10, image 9 and series 15, image15. No midline shift or herniation. The larger intracranial flow voids are preserved. No abnormal diffusion restriction or susceptibility. Globes and orbital structures are unremarkable. There is an early left antrochoanal polyp which extends into the left inferior meatus via the accessory maxillary ostium. There has likely been prior right- sided maxillary antrostomy and uncinectomy.There is vfra-ra-vybvlagp dependent right maxillary sinus mucosal thickening and mild scattered ethmoid sinus mucosal thickening. The mastoid air cells and middle ears are clear. No concerning scalp or calvarial abnormalities. IMPRESSION IMPRESSION 1. No acute intracranial abnormality. 2. Small focus of left temporal encephalomalacia which can be a post traumatic finding. 3. Generalized volume loss and mild chronic small vessel ischemic disease. 4. Early left antrochoanal polyp. Recommend ENT referral. IMPRESSION: Zackary Zhou is a 58 year old male with history of rhinitis, gout, BPH, GERD who presents today for post concussion headaches. Sustained a concussion with left congregational injury in January 2023 and developed subsequent daily headaches. Has been taking Goody's powder (Acetaminophen/ ASA / caffeine) 4-5x/ day for the past year. Had re- injury of the same area a few weeks ago. MRI brain notes area of left temporal encephalomalacia which is consistent with his injuries. Headaches are mixed; likely combination of medication overuse and migrainous. PLAN: Limit OTC medications to < 3x/ week to avoid medication overuse headache. 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 Start topiramate 25mg nightly; may increase to 50mg nightly after 2 weeks if tolerated Discussed prescription rescue medications; defers for now Will be in contact re effectiveness. Follow up in 2 months or sooner if needed. I spent a total of 40 minutes on the date of service in preparation, delivery, and documentation of the care provided to Zackary Zhou. Imaging reviewed with Elayne Haro MD. Krystina Spain PA-C, Neurology [address] [place] [address] 02/11/2024 11:29 AM documented in this encounter Nursing Notes * Cassandra Martinez MED ASSIST - 02/12/2024 8:49 AM EST Chief Complaint Patient presents with Return Neuro Headache Syncope documented in this encounter Plan of Treatment Upcoming Encounters Date Type Department Care Team (Late st Contact Info) Description 02/18/2024 8:00 AM EST Office Visit Otolaryngology [facility] [address] [place] [address] Tom Orosco, [address] [place] [address] 04/29/2024 8:20 AM EST Office Visit Rheumatology [place] [id number] [place] [address] Jaron Buckner MD [facility] [place] [address] 05/27/2024 9:00 AM EST [facility] [address] [facility] [address] Desean Raymond MD [address] [facility], [place] [address] 06/10/2024 7:00 AM EDT Office Visit Neurology [facility] [place] [address] [facility] [place], [place] [address] Krystina Spain PA-C [address] [place] [address] 07/22/2024 8:00 AM EDT Hospital Encounter ENDO [facility], Endoscopy Room [facility] [address] [facility] [place] [phone] Suni Orourke MD [address] [place] [address] 07/22/2024 8:00 AM EDT - 07/22/2024 8:30 AM EDT Surgery ENDO [facility], Endoscopy Room [facility] [address] [facility] [place] [id number] Suni Orourke MD [address] [place] [id number] COLONOSCOPY FLEXIBLE PROXIMAL DIAGNOSTIC Scheduled Procedures Name [...] this encounter Medical Devices Implanted Type Area Air Valve Repairer Device Identifier Shelf Expiration Date Model / Serial / Lot Ventralex St Hernia Patch Implanted:Qty: 1 on 10/25/2014 by Desean Hernandez MD at OR [facility] N/A: Abdomen INACTIVE [employer] 03/30/2016 [id number] / / [id number] documented as of this encounter Visit Diagnoses Diagnosis Post-concussion headache- Primary Post-traumatic headache, unspecified Medication overuse headache Drug induced headache, not elsewhere classified Special screening for malignant neoplasms, colon documented [...] the patient have Health Care Power of Revising Clerk? No Care Teams Grease Monkey Relationship Specialty Start Date End Date Desean Raymond MD [address] [place] [address] PCP - General Family Medicine 03/16/20 documented as of this encounter"
--- OUTSIDE RECORDS SUMMARY | 2024-07-04 10:02 | External Medical Summary ---
Author Name Unknown Address Unknown Organization K01:[place] [facility] [place] [address] [place] [address] Laboratory Report Ordering Provider Test Date Status LINDY STEWART 04/29/2024 08:33:38 Final Observation Date Value Abnormality Reference (Units ) Status Uric Acid 04/29/2024 08:33:38 6.6 3.4-7.0 (m g/dL) Final Performing Location LABORATORY [facility] - [address] [place] [id number]
--- OUTSIDE RECORDS SUMMARY | 2024-07-04 10:02 | External Medical Summary | Summary of Care ---
Author Name Unknown Organization [facility] Address [address] [facility] [place] [address] Phone [phone] Care Team Providers Care Trencher Driver Name Role Phone Kade Raymond MD Primary Care Provider [phone] Reason for Visit * Reason Onset Date Comments Medication Refill 03/05/2024 Encounter Details Date Type Department Care Team (Late st Contact Info) Description 03/05/2024 Refill [facility] Trupti Bird [address] [phone] Kade Raymond MD [address] [facility] [place] [address] Schatzki's ring; Chronic rhinitis; Gouty arthropathy; Viral URI with cough; Esophageal dysphagia; HSV-2 infection Allergies Active Allergy Reactions Criticality Noted Date Comments Corticosteroids Psych complications 12/18/2004 Injections are ok, unable to tolerate oral Indomethacin 06/12/2000 Can tolerate Ibuprofen OK. Warfarin Sodium 12/08/2010 Shakes, dizziness documented as of this encounter (statuses as of 03/08/2024) Medications Fluticasone Propionate 50 MCG/ACT Nasal Suspension (Flonase)Indica tions:Viral URI with cough Administer 2 Sprays into each nostril in the morning. 1 Each 3 Active Topiramate 25 MG Oral Tablet (topAMAX) Take 1 tablet nightly x 2 weeks then increase to 2 tablets nightly 60 Tablet 4 11/14/202 4 Active Azelastine HCl 0.1 % Nasal Solution (Astelin)Indica tions:Schatzki' s ring Administer 1 [place] into nostril in the morning and 1 [place] before bedtime. 90 mL 3 4 Active Cetirizine HCl 10 MG Oral Tablet (ZyrTEC)Indicat ions:Chronic rhinitis Take 1 Tablet by mouth at bedtime as needed for Rhinitis. 30 Tablet 11 4 Active Colchicine 0.6 MG Oral TabletIndicatio ns:Gouty arthropathy Take 1 Tablet by mouth in the morning and 1 Tablet before bedtime. 180 Tablet 1 4 Active Pantoprazole Sodium 40 MG Oral Tablet Delayed Release (Protonix)Indic ations:Schatzki 's ring,Esophageal dysphagia Take 1 Tablet by mouth in the morning. 1 hour before the first meal of the day.. 90 Tablet 3 4 Active valACYclovir HCl 500 MG Oral Tablet (Valtrex)Indica tions:HSV-2 infection TAKE 1 TABLET BY MOUTH 3 TIMES A DAY FOR 3 DAYS FOR RECURRENT EPISODE 27 Tablet 1 4 Active cetirizine (ZYRTEC) 10 MG TabletIndicatio ns:Chronic rhinitis Take 1 Tab by mouth at bedtime as needed for Rhinitis. 30 Tab 11 9 03/05/20 24 Discontin ued(Refil l) valACYclovir HCl 500 MG Oral Tablet (Valtrex)Indica tions:HSV-2 infection TAKE 1 TABLET BY MOUTH 3 TIMES A DAY FOR 3 DAYS FOR RECURRENT EPISODE 27 Tablet 1 2 03/05/20 24 Discontin ued(Refil l) Colchicine 0.6 MG Oral Tablet (Colcrys)Indica tions:Gouty arthropathy Take 1 Tablet by mouth in the morning and 1 Tablet before bedtime. 180 Tablet 3 3 03/05/20 24 Discontin ued(Refil l) Pantoprazole Sodium 40 MG Oral Tablet Delayed Release (Protonix)Indic ations:Schatzki 's ring,Esophageal dysphagia Take 1 Tablet by mouth in the morning. 1 hour before the first meal of the day.. 90 Tablet 3 3 03/05/20 24 Discontin ued(Refil l) Azelastine HCl 0.1 % Nasal Solution (Astelin)Indica tions:Schatzki' s ring Administer 1 [place] into nostril in the morning and 1 [place] before bedtime. 90 mL 3 3 03/05/20 24 Discontin ued(Refil l) documented as of this encounter (statuses as of 03/08/2024) Active Problems Problem Noted Date Diagnosed Date [...] as of this encounter (statuses as of 03/08/2024) Resolved Problems Problem Noted Date Diagnosed Date [...] as of this encounter (statuses as of 03/08/2024) Immunizations Name Administration Dates Next Due COVID-19 mRNA, LNP-s, No Pre serve, 2-Dose Series ([employer]) 07/04/2020,06/13/2020 HEP A - Hepatitis A (Adult > 18 yrs) 05/18/2014 11/15/2014 Pneumococcal Conjugate Vacci ne, 20-valent ([id number]) 01/22/2024 Pneumococcal Polysaccharide PPV23 (Pneumovax) 04/29/2007 Seasonal [...] 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 Authorizing Provider: KADE RAYMOND Ordering User: BEATA HUDSON Cetirizine HCl 10 MG Oral Tablet (ZyrTEC) 30 Tab*11 Sig: Take 1 Tablet by mouth at bedtime as needed for Rhinitis. A uthorizing Provider: KADE RAYMOND Colchicine 0.6 MG Oral Tablet 180 Ta*1 Sig: Take 1 Tablet by mouth in the morning and 1 Tablet before bedtime. Authorizing Provider: KADE RAYMOND Ordering User: BEATA HUDSON Pantoprazole Sodium 40 MG Oral Tablet Angelika*90 Tab*3 Sig: Take 1 Tablet by mouth in the morning. 1 hour before the first meal of the day.. Authorizin g Provider: KADE RAYMOND Ordering User: BEATA HUDSON valACYclovir HCl 500 MG Oral Tablet (Valtr*27 Tab*1 Sig: TAKE 1 TABLET BY MOUTH 3 TIMES A DAY FOR 3 DAYS FOR RECURRENT EPISODE Authorizing Provider: KADE RAYMOND * Telephone Encounter - Beata Hudson [facility] - 03/07/2024 6:06 PM ESTPending Prescriptions: Disp Refills Cetirizine HCl 10 MG Oral Tablet (ZyrTEC) 30 Tab*11 Sig: Take 1 Tablet by mouth at bedtime as needed for Rhinitis. valACYclovir HCl 500 MG Oral Tablet (Valtr*27 Tab*1 Sig: TAKE 1 TABLET BY MOUTH 3 TIMES A DAY FOR 3 DAYS FOR RECURRENT EPISODE Signed Prescriptions: Disp Refills Azelastine HCl 0.1 % Nasal Solution (Astel*90 mL 3 Sig: Administer 1 [place] into nostril in the morning and 1 [place] before bedtime. Authorizing Provider: KADE RAYMOND Ordering User: BEATA HUDSON Colchicine 0.6 MG Oral Tablet 180 Ta*1 Sig: Take 1 Tablet by mouth in the morning and 1 Tablet before bedtime. Authorizing Provider: KADE RAYMOND Ordering User: MICHAEL HUDSON Pantoprazole Sodium 40 MG Oral Tablet Angelika*90 Tab*3 Sig: Take 1 Tablet by mouth in the morning. 1 hour before the first meal of the day.. Authorizing Provider: KADE RAYMOND Ordering User: BEATA HUDSON * Telephone Encounter - Beata Hudson RPh - 03/07/2024 6:05 PM EST Forwarding to PCP for review and approval if appropriate Valacyclovir last approved 12/05/21 Cetirizine last approved 01/08/19 Beata Gutierrez, PharmD Clinical Pharmacist [facility] ([facility]) [phone] 03/07/2024 6:05 PM * Telephone Encounter - Valerie Rothman CPhT - 03/05/2024 11:23 AM EST Did you pend patient's preferred pharmacy and medication before forwarding?yes Pharmacy: [facility] Pending Prescriptions: Disp Refills Azelastine HCl 0.1 % Nasal Solution (Aste*90 mL 3 Sig: Administer 1 [place] into nostril in the morning and 1 [place] before bedtime. Cetirizine HCl 10 MG Oral Tablet (ZyrTEC) 30 Tab*11 Sig: Take 1 Tablet by mouth at bedtime as needed for Rhinitis. Colchicine 0.6 MG Oral Tablet 180 Ta*3 Sig: Take 1 Tablet by mouth in the morning and 1 Tablet before bedtime. Pantoprazole Sodium 40 MG Oral Tablet Del*90 Tab*3 Sig: Take 1 Tablet by mouth in the morning. 1 hour before the first meal of the day.. valACYclovir HCl 500 MG Oral Tablet (Valt*27 Tab*1 Sig: TAKE 1 TABLET BY MOUTH 3 TIMES A DAY FOR 3 DAYS FOR RECURRENT EPISODE Last Visit: Visit date not found (in office), Visit date not found (telemedicine) Next Visit: 05/27/2024 If no future appointments scheduled, and last appointment is greater than a year ago, please schedule patient for a follow-up appointment Last date the medication was ordered: 01/16/23, 01/08/19, 12/05/21 Is this request for a controlled substance?No Urine Drug Screen:No results found for this or any previous visit. Patient Phone Numbers Labs: Lab Results Component Value Date/Time CREAT 1.1 05/05/2023 10:02 AM CREAT 1.1 01/10/2020 08:44 AM POTASSIUM 4.7 05/05/2023 10:02 AM POTASSIUM 4.2 01/10/2020 08:44 AM TSH 3.77 02/19/2019 09:50 AM LDL 124 05/05/2023 10:02 AM LDL 101 01/10/2020 08:44 AM LDL NOT APPLICABLE 01/10/2020 08:44 AM ALT 48 05/05/2023 10:02 AM ALT 69 (H) 01/10/2020 08:44 AM documented in this encounter Plan of Treatment Upcoming Encounters Date Type Department Care Team (Late st Contact Info) Description 04/09/2024 7:00 AM EST Imaging Radiology [facility] [address] [place] [place] [address] 04/26/2024 1:04 PM EST Hospital Encounter OR [facility], Operating Room [facility] [address] [phone] Tom Orosco, [address] [place] [address] 04/26/2024 1:04 PM EST - 04/26/2024 3:00 PM EST Surgery OR [facility], Operating Room [facility] [address] [place] [phone] Tom Orosco, [address] [place] [address] STEREOTACTIC CRANIAL EXTRADURAL NAVIGATION 04/29/2024 8:20 AM EST Office Visit Rheumatology [address] [place] [address] Jaron Buckner MD [facility] [place] [address] 05/04/2024 8:30 AM EST Office Visit Otolaryngology [facility] [address] [place] [address] Tom Orosco, [address] [place] [address] 05/27/2024 9:00 AM EST Office Visit [facility] Nely Kimbrough [address] [phone] Kade Raymond MD [address] [place] [address] 06/10/2024 7:00 AM EDT Office Visit Neurology [facility] Rekha [place] [address] [place] [address] Krystina Spain PA-C [address] [address] 07/22/2024 8:00 AM EDT Hospital Encounter ENDO [facility], Endoscopy Room [facility] [address] [place] [address] Suni Orourke MD [address] [address] 07/22/2024 8:00 AM EDT - 07/22/2024 8:30 AM EDT Surgery ENDO [facility], Endoscopy Room [facility] [address] [place] [phone] Suni Orourke MD [address] [place] [id number] COLONOSCOPY FLEXIBLE PROXIMAL DIAGNOSTIC Scheduled Procedures Name Priority Associated Diagnoses Date/Ti me STEREOTACTIC CRANIAL EXTRADURAL NAVIGATION Antrochoanal polyp 04/26/2024 1:04 PM EST NASAL SINUS ENDOSCOPY MAXILLA ANTROSTOMY REMOVE TISSUE Antrochoanal polyp 04/26/2024 1:04 PM EST EXCISION NASAL POLYPS EXTENSIVE Antrochoanal polyp 04/26/2024 1:04 PM EST COLONOSCOPY FLEXIBLE PROXIMAL DIAGNOSTIC Recall [...] this encounter Medical Devices Implanted Type Area Shoe Parts Molder Device Identifier Shelf Expiration Date Model / Serial / Lot Ventralex St Hernia Patch Implanted:Qty: 1 on 10/25/2014 by Kade Hernandez MD at OR [facility] N/A: Abdomen INACTIVE CR [employer] 03/30/2016 [id number] / / [id number] documented as of this encounter Visit Diagnoses Diagnosis 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 No Care Teams Trencher Driver Relationship Specialty Start Date End Date Kade Raymond MD [address] [address] PCP - General Family Medicine 03/16/20 documented as of this encounter
--- OUTSIDE RECORDS SUMMARY | 2024-07-04 10:02 | External Medical Summary | Summary of Care ---
Author Name Unknown Organization [facility] Address [address] [place] [facility] [place] [address] Phone [phone] Care Team Providers Care Auditing Coder Name Role Phone Kade Raymond MD Primary Care Provider [phone] Reason for Visit * Reason Onset Date Comments Medication Refill 03/05/2024 Encounter Details Date Type Department Care Team (Late st Contact Info) Description 03/05/2024 [facility] [address] [phone] Kade Raymond MD 226 [facility] [place] [address] Gouty arthropathy Allergies Active Allergy Reactions Criticality Noted Date Comments Corticosteroids Psych complications 12/18/2004 Injections are ok, unable to tolerate oral Indomethacin 06/12/2000 Can tolerate Ibuprofen OK. Warfarin Sodium 12/08/2010 Shakes, dizziness documented as of this encounter (statuses as of 03/05/2024) Medications cetirizine (ZYRTEC) 10 MG TabletIndicatio ns:Chronic rhinitis Take 1 Tab by mouth at bedtime as needed for Rhinitis. 30 Tab 11 9 Active valACYclovir HCl 500 MG Oral Tablet (Valtrex)Indica tions:HSV-2 infection TAKE 1 TABLET BY MOUTH 3 TIMES A DAY FOR 3 DAYS FOR RECURRENT EPISODE 27 Tablet 1 2 Active Fluticasone Propionate 50 MCG/ACT Nasal Suspension (Flonase)Indica tions:Viral URI with cough Administer 2 Sprays into each nostril in the morning. 1 Each 3 Active Colchicine 0.6 MG Oral Tablet (Colcrys)Indica tions:Gouty arthropathy Take 1 Tablet by mouth in the morning and 1 Tablet before bedtime. 180 Tablet 3 3 Active Pantoprazole Sodium 40 MG Oral Tablet Delayed Release (Protonix)Indic ations:Schatzki 's ring,Esophageal dysphagia Take 1 Tablet by mouth in the morning. 1 hour before the first meal of the day.. 90 Tablet 3 3 Active Azelastine HCl 0.1 % Nasal Solution (Astelin)Indica tions:Schatzki' s ring Administer 1 [place] into nostril in the morning and 1 [place] before bedtime. 90 mL 3 3 Active Topiramate 25 MG Oral Tablet (topAMAX) Take 1 tablet nightly x 2 weeks then increase to 2 tablets nightly 60 Tablet 4 4 Active Allopurinol 300 MG Oral Tablet (Zyloprim)Indic ations:Gouty arthropathy Take 1 Tablet by mouth in the morning. 90 Tablet 3 4 Active Allopurinol 300 MG Oral Tablet (Zyloprim)Indic ations:Gouty arthropathy Take 1 Tablet by mouth in the morning. 90 Tablet 3 3 03/05/20 24 Discontin ued(Refil l) documented as of this encounter (statuses as of 03/05/2024) Active Problems Problem Noted Date Diagnosed Date [...] as of this encounter (statuses as of 03/05/2024) Resolved Problems Problem Noted Date Diagnosed Date [...] as of this encounter (statuses as of 03/05/2024) Immunizations Name Administration Dates Next Due COVID-19 mRNA, LNP-s, No Pre serve, 2-Dose Series ([employer]) 07/04/2020,06/13/2020 HEP A - Hepatitis A (Adult > 18 yrs) 05/18/2014 11/15/2014 Pneumococcal Conjugate Vacci ne, 20-valent ([id number]) 01/22/2024 Pneumococcal Polysaccharide PPV23 (Pneumovax) 04/29/2007 Seasonal [...] No 01/22/2024 Does the household have a [facility] source of income? 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 Authorizing Provider: KADE RAYMOND * Telephone Encounter - Valerie Rothman CPhT - 03/05/2024 11:26 AM EST Did you pend patient's preferred pharmacy and medication before forwarding?yes Pharmacy: [facility]- [place] Pending Prescriptions: Disp Refills Allopurinol 300 MG Oral Tablet (Zyloprim) 90 Tab*3 Sig: Take 1 Tablet by mouth in the morning. Last Visit: Visit date not found (in office), Visit date not found (telemedicine) Next Visit: 05/27/2024 If no future appointments scheduled, and last appointment is greater than a year ago, please schedule patient for a follow-up appointment Last date the medication was ordered: 01/16/23 Is this request for a controlled substance?No [...] Description 04/09/2024 7:00 AM EST Imaging Radiology [address] [address] 04/26/2024 1:04 PM EST Hospital Encounter OR [facility], Operating Room [facility] [address] [phone] Tom Orosco, DO [address] [place] [address] 04/26/2024 1:04 PM EST - 04/26/2024 3:00 PM EST Surgery OR [facility], Operating Room [facility] [address] [place] [phone] Tom Orosco, [address] [place] [address] STEREOTACTIC CRANIAL EXTRADURAL NAVIGATION 04/29/2024 8:20 AM EST Office Visit Rheumatology [place] [phone] [facility] [place] [address] Jaron Buckner MD [address] [place] [address] [place] [address] 05/04/2024 8:30 AM EST Office Visit Otolaryngology [facility] [address] [place] [address] Tom Orosco DO [address] [place] [address] 05/27/2024 9:00 AM EST Office Visit [facility] [address] [place] [phone] Kade Raymond MD 226 [facility] [place] [address] 06/10/2024 7:00 AM EDT Office Visit Neurology [facility] [place] [address] Krystina Spain PATamie [address] [facility] [place] [address] 07/22/2024 8:00 AM EDT Hospital Encounter ENDO [facility], Endoscopy Room [facility] [address] [place] [address] Suni Orourke MD [address] [address] 07/22/2024 8:00 AM EDT - 07/22/2024 8:30 AM EDT Surgery ENDO [facility], Endoscopy Room [facility] [address] [place] [phone] Suni Orourke MD [address] [place] [address] COLONOSCOPY FLEXIBLE PROXIMAL DIAGNOSTIC Scheduled Procedures Name Priority Associated Diagnoses Date/Ti ri STEREOTACTIC CRANIAL EXTRADURAL NAVIGATION Antrochoanal polyp 04/26/2024 [...] encounter Medical Devices Implanted Type Area Director Corporate Security Device Identifier Shelf Expiration Date Model / Serial / Lot Ventralex St Hernia Patch Implanted:Qty: 1 on 10/25/2014 by Kade Hernandez MD at OR [facility] N/A: Abdomen INACTIVE CR [employer] 03/30/2016 [id number] / / [id number] documented as of this encounter Visit Diagnoses Diagnosis 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 No Care Teams Auditing Coder Relationship Specialty Start Date End Date Kade Raymond MD [address] [place] [address] PCP - General Family Medicine 03/16/20 documented as of this encounter
--- OUTSIDE RECORDS SUMMARY | 2024-07-04 10:02 | External Medical Summary | Summary of Care ---
Author Name Unknown Organization [facility] Address [address] [facility] [place] [address] Phone [phone] Care Team Providers Care Buffing Wheel Former Automatic Name Role Phone Desean Raymond MD Primary Care Provider [phone] Reason for Visit * Reason Onset Date Comments Med Request 03/05/2024 Encounter Details Date Type Department Care Team (Late st Contact Info) Description 03/05/2024 Telephone [facility] Trupti Bird [address] [phone] Desean Raymond MD 226 [facility] [place] [address] Med Request Allergies Active Allergy Reactions Criticality Noted Date Comments Corticosteroids Psych complications 12/18/2004 Injections are ok, unable to tolerate oral Indomethacin 06/12/2000 Can tolerate Ibuprofen OK. Warfarin Sodium 12/08/2010 Shakes, dizziness documented as of this encounter (statuses as of 03/08/2024) Medications Topiramate 25 MG Oral Tablet (topAMAX) Take 1 tablet nightly x 2 weeks then increase to 2 tablets nightly 60 Tablet 4 4 Active Fluticasone Propionate 50 MCG/ACT Nasal Suspension (Flonase)Indic ations:Viral URI with cough Administer 2 Sprays into each nostril in the morning. 1 Each 5 4 Active Fluticasone Propionate 50 MCG/ACT Nasal Suspension (Flonase)Indic ations:Viral URI with cough Administer 2 Sprays into each nostril in the morning. 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 * Telephone Encounter - Valerie Rothman CPhT - 03/05/2024 11:27 AM EST Patient calling requesting refills for Fluticasone Propionate 50 MCG/ACT Nasal Suspension . Upon chart review, medication was last prescribed by Urgent Care. Please advise if you wish to continue this therapy for the patient. Thank you, Valerie Rothman CPhT [facility] 03/05/2024,11:27 AM documented in this encounter Plan of Treatment Upcoming Encounters Date Type Department Care Team (Late st Contact Info) Description 04/09/2024 7:00 AM EST Imaging Radiology [address] [place] [address] 04/26/2024 1:04 PM EST Hospital Encounter OR [facility], Operating Room [facility] [address] [phone] Tom Orosco DO [address] [address] 04/26/2024 1:04 PM EST - 04/26/2024 3:00 PM EST Surgery OR [facility], Operating Room [facility] [address] [place] [phone] Tom Orosco, DO [address] [place] [address] STEREOTACTIC CRANIAL EXTRADURAL NAVIGATION 04/29/2024 8:20 AM EST Office Visit Rheumatology [facility] [address] [facility] [place], [place] [address] Jaron Buckner MD [address] [facility] [place] [address] 05/04/2024 8:30 AM EST Office Visit Otolaryngology [facility] [address] [place] [address] Tom Orosco, DO [address] [place] [address] 05/27/2024 9:00 AM EST Office [facility] [phone] Desean Raymond MD 226 [facility] [address] 06/10/2024 7:00 AM EDT Office Visit Neurology [facility] [address] [place] [address] Krystina Spain, PATamie [facility] [place] [address] 07/22/2024 8:00 AM EDT Hospital Encounter ENDO [facility], Endoscopy Room [facility] [address] [place] [phone] Suni Orourke MD [address] [place] [address] 07/22/2024 8:00 AM EDT - 07/22/2024 8:30 AM EDT Surgery ENDO [facility], Endoscopy Room [facility] 132 [facility] [place] [address] Suni Orourke MD [address] [place] [id number] COLONOSCOPY FLEXIBLE PROXIMAL DIAGNOSTIC Scheduled Procedures Name [...] this encounter Medical Devices Implanted Type Area Cartography Teacher Device Identifier Shelf Expiration Date Model / Serial / Lot Ventralex St Hernia Patch Implanted:Qty: 1 on 10/25/2014 by Desean Hernandez MD at OR 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 No Care Teams Buffing Wheel Former Automatic Relationship Specialty Start Date End Date Desean Raymond MD [address] [place] [address] PCP - General Family Medicine 03/16/20 documented as of this encounter
--- OUTSIDE RECORDS SUMMARY | 2024-07-04 10:03 | External Medical Summary | Summary of Care ---
Author Name Unknown Organization [facility] Address [address] [place] [address] Phone [phone] Care Team Providers Care Forming Fixer Name Role Phone Desean Raymond MD Primary Care Provider Reason for Referral * Evaluate & Treat - Unlimited Visits (Within 30 days (routine)) - Pending Review Specialty Diagnoses / Procedures Referred By Elly lui Referred To Contact Otolaryngology Diagnoses Nasal polyp Desean Raymond MD [address] [place] [address] Referral ID Status Reason Start Date Expiration Date Visits Requested Visits Authorized [id number] Pending Review Specialty Services Required 4 [phone] Question Answer Referral Priority Within 30 days (routine) Where should this appointment be scheduled? [facility] Reason for Referral Nasal/Sinus/Allergy Conditions Specific Condition: Nasal Polyps Comments Left sided sinus polyp - incidental on MRI brain Reason for Visit * Reason Onset Date Comments Nurse Documentation 01/18/2024 Encounter Details Date Type Department Care Team (Late st Contact Info) Description 01/18/[address] [facility] [address] [place] [address] Desean Raymond MD [address] [place] [address] Nurse Documentation Allergies Active Allergy Reactions Criticality Noted Date Comments Corticosteroids Psych complications 12/18/2004 Injections are ok, unable to tolerate oral Indomethacin 06/12/2000 Can tolerate Ibuprofen OK. Warfarin Sodium 12/08/2010 Shakes, dizziness documented as of this encounter (statuses as of 01/22/2024) Medications Medication Sig Dispensed Refills Start Date End Date Status PEPTO-BISMOL 262 MG PO TABS 3-4 tbas as needed Active cetirizine (ZYRTEC) 10 MG TabletIndications:C hronic rhinitis Take 1 Tab by mouth at bedtime as needed for Rhinitis. 30 Tab 11 01/08/2019 Active valACYclovir HCl 500 MG Oral Tablet (Valtrex)Indication s:HSV-2 infection TAKE 1 TABLET BY MOUTH 3 TIMES A DAY FOR 3 DAYS FOR RECURRENT EPISODE 27 Tablet 1 12/05/2021 Active Fluticasone Propionate 50 MCG/ACT Nasal Suspension (Flonase)Indication s:Viral URI with cough Administer 2 Sprays into each nostril in the morning. 1 Each 06/18/2022 Active Colchicine 0.6 MG Oral Tablet (Colcrys)Indication s:Gouty arthropathy Take 1 Tablet by mouth in the morning and 1 Tablet before bedtime. 180 Tablet 3 01/16/2023 Active Allopurinol 300 MG Oral Tablet (Zyloprim)Indicatio ns:Gouty arthropathy Take 1 Tablet by mouth in the morning. 90 Tablet 3 01/16/2023 Active Pantoprazole Sodium 40 MG Oral Tablet Delayed Release (Protonix)Indicatio ns:Schatzki's ring,Esophageal dysphagia Take 1 Tablet by mouth in the morning. 1 hour before the first meal of the day.. 90 Tablet 3 01/16/2023 Active Azelastine HCl 0.1 % Nasal Solution (Astelin)Indication s:Schatzki's ring Administer 1 [place] into nostril in the morning and 1 [place] before bedtime. 90 mL 3 01/16/2023 Active Midodrine HCl 2.5 MG Oral Tablet (Proamatine) 1 Tablet. Active Celecoxib 200 MG Oral Capsule (CeleBREX) Take 1 Capsule by mouth in the morning. In the morning.. 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 Flexor tenosynovitis of finger 11/11/2017 Mixed rhinitis 09/16/2017 Schatzki's ring 09/16/2017 Esophageal dysphagia 09/16/2017 Hepatitis A vaccination not up to date 7 Encounter for long-term (current) use of medicat ions 05/14/2016 Acute idiopathic gout of right hand 08/24/2015 Acute gout of right hand 07/14/2015 Overweight (BMI 25.0-29.9) 01/12/2015 Overview: bmi= 29.29 01/12/15 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 Overweight (BMI 25.0-29.9) 05/27/2013 Overview: bmi= 29.29 05/27/13 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 Tobacco use disorder 11/13/2011 Hemangioma of skin 11/13/2011 Vitamin D deficiency 09/16/2011 Gastroesophageal reflux 05/13/2011 Gouty arthropathy 05/13/2011 Chronic rhinitis 04/12/2011 DJD, BILATERAL KNEES, S/P TKA 10/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 DR DUPONT 0 11/01/2010 Intestinal infection due to Clostridium difficil e 11/01/2010 OVERWEIGHT, BMI= 27.42 09/12/10 09/12/2010 documented as of this encounter (statuses as of 01/22/2024) Resolved Problems Problem Noted Date Diagnosed Date Resolved Date Exposure to genital herpes 11/01/2013 1 Abdominal pain, generalized 05/27/2013 01/12/2015 Pain in joint involving lower leg 09/10/2012 01/12/2015 Stye 07/08/2012 01/12/2015 Cellulitis of leg 07/06/2012 01/12/2015 Gout 07/06/2012 11/23/2012 Obesity, Class I, BMI 30.0-3 4.9 (see actual BMI) 05/18/2012 01/02/2017 Overview: bmi= 30.38 05/18/12 Cellulitis of groin, right 09/12/2011 1 Malaise and fatigue 09/12/2011 11/24/19 13 Weight gain 09/12/2011 01/12/2015 Polyuria 09/12/2011 01/12/2015 Myalgia and myositis 09/12/2011 015 Overweight (BMI 25.0-29.9) 04/12/2011 1 05/26/2018 Overview: BMI= 27.36 04/12/11 Hypotension 04/12/2011 01/12/2015 Chronic sinusitis 04/12/2011 01/12/2015 Tobacco use disorder 04/12/2011 015 DIZZINESS 11/01/2010 01/12/2015 Abnormal coagulation profile 11/01/2010 01/12/2015 Polyneuropathy in other dise ases classified elsewhere 11/01/2010 05/27/2013 Spasm of muscle 11/01/2010 01/12/2015 DJD, BILATERAL KNEES 09/12/2010 013 PARONYCHIA FINGER, RIGHT MIDDLE 09/12/2010 05/27/2013 Septicemia 09/12/2010 05/27/2013 Other allergic rhinitis 12/22/200910/30 Overview: ICD-10 update of inactive term Gouty arthropathy 01/12/2009 05/13/2011 Overview: ICD-9 Code Update ICD-10 update of inactive term Closed fracture of one or mo re phalanges of foot 04/07/2008 05/27/2013 PAIN IN LIMB, RIGHT KNEE 04/07/2008 Olecranon bursitis 12/16/2005 3 ADVANCE DIRECTIVE INFORMATION 12/13/2005 01/12/2015 Overview: No, Advance Directive brochure offered , patient declined. Allergic rhinitis 11/30/2005 01/12/2015 Chest pain 11/30/2005 11/23/2012 Esophageal reflux 11/30/2005 11/23/2012 PAIN IN LIMB, LEFT ELBOW 12/18/2004 ADV EFF MED-BIOL SUB NOS 12/18/2004 BIPOLAR AFFEC, MANIC-MOD 10/13/2003 Tobacco use disorder 08/28/2000 012 Gouty arthropathy 01/12/2009 Overview: ICD-9 Code Update ICD-10 update of inactive term documented as of this encounter (statuses as of 01/22/2024) Immunizations Name Administration Dates Next Due COVID-19 mRNA, LNP-s, No Pre serve, 2-Dose Series (MobilyTrip) 07/04/2020,06/13/2020 HEP A - Hepatitis A (Adult > 18 yrs) 05/18/2014 11/15/2014 Pneumococcal Polysaccharide PPV23 (Pneumovax) 04/29/2007 Seasonal Influenza [...] e alcohol) rarely PHQ-2 Answer Date Recorded PHQ-2 Score -1 12/19/2019 Hunger Vital Sign Answer Date Recorded Within the past 12 months, y ou worried that your food would run out before you got the money to buy more. Never true 08/24/19 23 Within the past 12 months, t he food you bought just didn't last and you didn't have money to get more. Never true 08/23/2022 Sex and Gender Information Value Date Recorded Sex Assigned at Male 09/25/2018 2:06 PM EDT Gender Identity Male 09/25/2018 2:06 PM EDT Sexual Orientation Straight 09/25/2018 2: 06 PM EDT Job Start Date Occupation Industry Not on file Not on file Not on file documented as of this encounter Miscellaneous Notes * Telephone Encounter - Krysta Harkins LPN - 01/22/2024 9:02 AM EDT Attempted to call patient, there was no answer, left voicemail. When patient returns call, ok for OLGA to relay message, please refer to below documentation. If needed, can transfer to dedicated nurse line. * Telephone Encounter - Krysta Harkins LPN - 01/21/2024 10:47 AM EDT Attempted to call patient, there was no answer, left voicemail. When patient returns call, ok for OLGA to relay message, please refer to below documentation. If needed, can transfer to dedicated nurse line. * Telephone Encounter - Desean Raymond MD - 01/18/2024 8:39 AM EDT Notify : the MRI of brain looks OK. No tumor or bleed or stroke. There is a left sided sinus polyp.I recommend you see ENT for further evaluation. Referral placed. documented in this encounter Plan of Treatment Upcoming Encounters Date Type Department Care Team (Late st Contact Info) Description 01/22/2024 11:40 AM EDT Office Visit [facility] [address] [facility] [place] [place] [phone] Desean Raymond MD [address] [facility] [place] [id number] 01/29/2024 9:00 AM EDT Office Visit Otolaryngology [facility] [address] [place] [address] Bobbi Heath PA-C [address] [place] [address] 02/12/2024 9:00 AM EST Office Visit Neurology [facility] [address] [place] [address] Krystina Spain PA-C [address] [place] [address] Scheduled Procedures Name Priority Associated Diagnoses Date/Ti me COLONOSCOPY FLEXIBLE PROXIMA L DIAGNOSTIC Recall Special screening for malignant neoplasms, colon Scheduled Referrals Name Type Priority Associated Diagnoses Order Schedule ADULT/PEDS OTOLARYNGOLOGY REFERRAL OP Referral Within 30 days (routine) Nasal polyp Ordered: 01/18/2024 Health Maintenance Due Date Last Done Comments Hepatitis B Vaccine (1 of 3 - 19+ 3-dose series) 1985 Pneumococcal Vaccine: Pediatrics (0 to 5 Years) and At-Risk Patients (6 to 64 Years) (2 of 2 - PCV) 04/29/2008 04/29/2007 Cologuard 06/28/2011 Fecal Occult Blood Test 06/28/2011 [...] Completed 01/08/2024, 01/16/2023, 12/19/2021, Additional history exists HPV (Gardasil) Vaccine Aged Out No lo nger eligible based on patient's age to complete this topic MENINGOCOCCAL (MENACTRA/MENVEO) Aged Out No longer eligible based on patient's age to complete this topic documented as of this encounter Medical Devices Implanted Type Area Skelp Processor Device Identifier Shelf Expiration Date Model / Serial / Lot Ventralex St Hernia Patch Implanted:Qty: 1 on 10/25/2014 by Desean Hernandez MD at OR [facility] N/A: Abdomen INACTIVE CR [employer] 03/30/2016 [id number] / / [id number] documented as of this encounter Visit Diagnoses Diagnosis Nasal polyp- Primary Unspecified nasal polyp documented in this encounter Advance Directives * [...] the patient have Health Care Power of Warp Knit Operator? No Care Teams Forming Fixer Relationship Specialty Start Date End Date Desean Raymond MD [address] [place] [address] PCP - General Family Medicine 03/16/20 documented as of this encounter
--- OUTSIDE RECORDS SUMMARY | 2024-07-04 10:03 | External Medical Summary | Summary of Care ---
Author Name Unknown Organization [facility] Address [address] [place] [address] Phone [phone] Care Team Providers Care Institutional Nutrition Consultant Name Role Phone Desean Raymond MD Primary Care Provider Reason for Referral * Evaluate & Treat - Unlimited Visits (Within 30 days (routine)) - Pending Review Specialty Diagnoses / Procedures Referred By Elly lui Referred To Contact Otolaryngology Diagnoses Nasal polyp Desean Raymond MD [address] [place] [address] Referral ID Status Reason Start Date Expiration Date Visits Requested Visits Authorized [id number] Pending Review Specialty Services Required 4 999 [...] (Late st Contact Info) Description 01/18/2024 Telephone [facility] [address] [place] [address] Desean Raymond MD [address] [place] [address] Nurse Documentation Allergies Active Allergy [...] Nasal Solution (Astelin)Indication s:Schatzki's ring Administer 1 [place] into nostril in the morning and 1 [place] before bedtime. 90 mL 3 01/16/2023 Active [...] mRNA, LNP-s, No Pre serve, 2-Dose Series (eDossea) 07/04/2020,06/13/2020 HEP A - Hepatitis A (Adult [...] encounter Miscellaneous Notes * Telephone Encounter - Pooja Israel LPN - 01/22/2024 9:07 AM EDT Patient is aware and verbalizes understanding. ENT appt scheduled for 01/29/2024, He is asking if PCP wants him to follow up with neurology? He stated that he hit his head again while hooking up a battery, he was hit in the same spot that he had previous concussion and it is extremely tender. Advised I would need to send a message back to PCP for clarification but he stated that he has an appt today at 11:40am with provider and will ask at thi s appointment. Sending to PCP for FYI * Telephone Encounter - Krysta Harkins LPN [...] Description 01/22/2024 11:40 AM EDT Office Visit [facility] [address] [place] [facility] [place] [phone] Desean Raymond MD [address] [place] [address] 01/29/2024 9:00 AM EDT Office Visit Otolaryngology [facility] [address] [facility] [place] [address] Bobbi Heath PA-C [address] [facility] [place] [address] 02/12/2024 9:00 AM EST Office [facility] [address] [facility] [address] Krystina Spain PA-C [address] [place] [address] Scheduled Procedures Name Priority Associated Diagnoses Date/Ti [...] this encounter Medical Devices Implanted Type Area Barrow Worker Device Identifier Shelf Expiration Date Model / Serial / Lot Ventralex St Hernia Patch Implanted:Qty: 1 on 10/25/2014 by Desean Hernandez MD at OR [facility] N/A: Abdomen INACTIVE CR [employer] 03/30/2016 [id number] / / [id number] documented as of this encounter Visit Diagnoses [...] the patient have Health Care Power of Frozen Foods Manager? No Care Teams Institutional Nutrition Consultant Relationship Specialty Start Date End Date Desean Raymond MD [address] [place] [address] PCP - General Family Medicine 03/16/20 documented as of this encounter
--- OUTSIDE RECORDS SUMMARY | 2024-07-04 10:03 | External Medical Summary ---
Author Name Unknown Address Unknown Organization [id number]:[facility] [place] [address] [place] [id number] Laboratory Report Ordering Provider Test Date Status ANNETTE BRAUN 01/22/2024 12:53:55 Final Observation Date Value Abnormality Reference (Units ) Status Vitamin B12 01/22/2024 12:53:55 [phone] (pg/mL) Final Performing Location [facility] - [address] [place] [address]
--- OUTSIDE RECORDS SUMMARY | 2024-07-04 10:03 | External Medical Summary | Summary of Care ---
Author Name Unknown Organization [facility] Address [address] [facility] [place] [address] Phone [phone] Care Team Providers Care Art Historian Name Role Phone Desean Raymond MD Primary Care Provider [phone] Encounter Details Date Type Department Care Team (Late st Contact Info) Description 02/09/2024 Result Scan Unspecified Department <No scans attached> Allergies Active Allergy Reactions Criticality Noted Date Comments Corticosteroids Psych complications 12/18/2004 Injections are ok, unable to tolerate oral Indomethacin 06/12/2000 Can tolerate Ibuprofen OK. Warfarin Sodium 12/08/2010 Shakes, dizziness documented as of this encounter (statuses as of 02/11/2024) Medications cetirizine (ZYRTEC) 10 MG TabletIndication s:Chronic [...] Nasal Solution (Astelin)Indicat ions:Schatzki's ring Administer 1 [place] into nostril in the morning and 1 [place] before bedtime. 90 mL 3 3 Active documented as of this encounter (statuses as of 02/11/2024) Active Problems Problem Noted Date Diagnosed Date [...] as of this encounter (statuses as of 02/11/2024) Resolved Problems Problem Noted Date Diagnosed Date [...] as of this encounter (statuses as of 02/11/2024) Immunizations Name Administration Dates Next Due COVID-19 mRNA, LNP-s, No Pre serve, 2-Dose Series (Epiclist) 07/04/2020,06/13/2020 HEP A - Hepatitis A (Adult > 18 yrs) 05/18/2014 11/15/2014 Pneumococcal Conjugate Vacci ne, 20-valent ([id number]) 01/22/2024 Pneumococcal Polysaccharide PPV23 (Pneumovax) 04/29/2007 Seasonal [...] 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 [place] [address] 04/29/2024 8:20 AM EST Office Visit Rheumatology [facility] [address] [facility] [place] [address] Jaron Buckner MD [address] [place] [address] 05/27/2024 9:00 AM EST Office [address] [address] Desean Raymond MD [address] [place] [address] 07/22/2024 8:00 AM EDT Hospital Encounter [facility] End[facility] [address] [place], [place] [phone] Suni Orourke MD [address] [place] [address] 07/22/2024 8:00 AM EDT - 07/22/2024 8:30 AM EDT Surgery ENDO [facility], Endoscopy Room [facility] [address] [place] [phone] Suni Orourke MD [address] [place] [address] COLONOSCOPY FLEXIBLE PROXIMAL DIAGNOSTIC Scheduled Procedures Name [...] this encounter Medical Devices Implanted Type Area Outside Plant Supervisor Device Identifier Shelf Expiration Date Model / Serial / Lot Ventralex St Hernia Patch Implanted:Qty: 1 on 10/25/2014 by Desean Hernandez MD at OR [facility] N/A: Abdomen INACTIVE CR [employer] 03/30/2016 [id number] / / [id number] documented as of this encounter Procedures Procedure Name Priority Date/Time Associated Diagnosis Comments RADIOLOGY SCANNED RESULT 02/09/2024 documented in this encounter Results * RADIOLOGY SCANNED RESULT (02/09/2024) 02/09/2024 us No Physician Data Unknown DIAGNOSTIC RADIOLOGY S ERVICES Final Result documented in this encounter Advance Directives * [...] the patient have Health Care Power of Primary Care Nurse? No Care Teams Art Historian Relationship Specialty Start Date End Date Desean Raymond MD [address] [place] [address] PCP - General Family Medicine 03/16/20 documented as of this encounter
--- OUTSIDE RECORDS SUMMARY | 2024-07-04 10:03 | External Medical Summary | Summary of Care ---
Author Name Unknown Organization [facility] Address [address] [place] [address] Phone [phone] Care Team Providers Care Valve Grinder Name Role Phone Desean Raymond MD Primary Care Provider [phone] Reason for Referral * Evaluate & Treat - Unlimited Visits (Within 30 days (routine)) - Pending Review Specialty Diagnoses / Procedures Referred By Elly lui Referred To Contact Rheumatology Diagnoses Gouty arthropathy Desean Raymond MD [address] [place] [address] Referral ID Status Reason Start Date Expiration Date Visits Requested Visits Authorized [id number] Pending Review Specialty Services Required 4 [phone] Question Answer Referral Priority Within 30 days (routine) Where should this appointment be scheduled? 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 Patient states he hit his head off of a metal door on Friday, states he has had an ongoing headache since. Patient states after hitting his head he could not stop blinking for about 20 minutes. Patient has been taking OTC medication for the headache and states it gives him no relief. Patient would like to have spots checked on his left elbow. Encounter Details Date Type Department Care Team ([facility] st Contact Info) Description 01/22/2024 11:40 AM EDT [facility] [address] [facility], [place] [address] Desean Raymond MD [address] [place] [address] Gouty arthropathy*; Vaccine for viral hepatitis; Need for pneumococcal vaccination; Encounter for long-term (current) use of medications Allergies Active Allergy Reactions Criticality Noted Date Comments Corticosteroids Psych complications 12/18/2004 Injections are ok, unable to tolerate oral Indomethacin 06/12/2000 Can tolerate Ibuprofen OK. Warfarin Sodium 12/08/2010 Shakes, dizziness documented as of this encounter (statuses as of 01/22/2024) Medications Medication Sig Dispensed Refills Start Date End Date Status cetirizine (ZYRTEC) 10 MG TabletIndications :Chronic rhinitis Take 1 Tab by mouth at bedtime as needed for Rhinitis. 30 Tab 11 01/08/2019 Active valACYclovir HCl 500 MG Oral Tablet (Valtrex)Indicati ons:HSV-2 infection TAKE 1 TABLET BY MOUTH 3 TIMES A DAY FOR 3 DAYS FOR RECURRENT EPISODE 27 Tablet 1 12/05/2021 Active Fluticasone Propionate 50 MCG/ACT Nasal Suspension (Flonase)Indicati ons:Viral URI with cough Administer 2 Sprays into each nostril in the morning. 1 Each 06/18/2022 Active Colchicine 0.6 MG Oral Tablet (Colcrys)Indicati ons:Gouty arthropathy Take 1 Tablet by mouth in the morning and 1 Tablet before bedtime. 180 Tablet 3 01/16/2023 Active Allopurinol 300 MG Oral Tablet (Zyloprim)Indicat ions:Gouty arthropathy Take 1 Tablet by mouth in the morning. 90 Tablet 3 01/16/2023 Active Pantoprazole Sodium 40 MG Oral Tablet Delayed Release (Protonix)Indicat ions:Schatzki's ring,Esophageal dysphagia Take 1 Tablet by mouth in the morning. 1 hour before the first meal of the day.. 90 Tablet 3 01/16/2023 Active Azelastine HCl 0.1 % Nasal Solution (Astelin)Indicati ons:Schatzki's ring Administer 1 [place] into nostril in the morning and 1 [place] before bedtime. 90 mL 3 01/16/2023 Active PEPTO-BISMOL 262 MG PO TABS 3-4 tbas as needed 4 Discontinue d(Medicatio n List Clean Up) Midodrine HCl 2.5 MG Oral Tablet (Proamatine) 1 Tablet. 4 Discontinue d(Medicatio n List Clean Up) Celecoxib 200 MG Oral Capsule (CeleBREX) Take 1 Capsule by mouth in the morning. In the morning.. 14 Capsule 05/19/2023 4 Discontinue d(Medicatio n List Clean Up) documented as of this [...] mRNA, LNP-s, No Pre serve, 2-Dose Series (Youjia) 07/04/2020,06/13/2020 HEP A - Hepatitis A (Adult > 18 yrs) 05/18/2014 11/15/2014 Pneumococcal Conjugate Vacci ne, 20-valent ([id number]) 01/22/2024 Pneumococcal Polysaccharide PPV23 (Pneumovax) 04/29/2007 Seasonal [...] Sign Reading Time Taken Comments Blood Pressure 112/76 01/22/2024 11:43 AM EDT Pulse 78 01/22/2024 11:43 AM EDT Temperature 36.5 °C (97.7 °F) 01/22/2024 11:43 AM E DT Respiratory Rate 16 01/22/2024 11:43 AM EDT Oxygen Saturation 96% 01/22/2024 11:43 AM EDT Inhaled Oxygen Concentration - - Weight 94.2 kg (207 lb 9.6 oz) 01/22/2024 11:43 AM EDT Height 182.9 cm (6') 01/22/2024 11:43 AM EDT Body Mass Index 28.16 01/22/2024 11:43 AM EDT documented in this encounter Progress Notes * Desean Raymond MD - 01/22/2024 1:33 PM EDT Subjective: Zackary Zhou is a 58 year old male. Chief Complaint Patient presents with Physical-Exam Patient is here today for a physical. Patient states he hit his head off of a metal door on Friday, states he has had an ongoing headache since. Patient states after hitting his head he could not stop blinking for about 20 minutes. Patient has been taking OTC medication for the headache and states it gives him no relief. Patient would like to have spots checked on his left elbow. HPI: 58-year-old scheduled for physical exam today. I saw him 2 weeks ago in follow-up for concussion that had occurred 9 months prior. He still complained about headaches that were occurring on a near daily basis. He was using powder Tylenol product in did provide relief but it was short-lived. After that visit he had MRI of the brain without contrast which showed no acute intracranial abnormality. There was a small focus of left temporal encephalomalacia and some chronic small-vessel ischemicdisease. 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 With the finding of the polyp he was referred to ENT in and now has a an appointment. He is scheduled to see Neurology in regards the headaches Two days ago work he was struck over the left temporal area with a toolbox door. [place] He tells me that he had lifted the door with a toolbox up and had latched but it Um became unless it came down hit him in the left temporal area. He was not knocked unconscious. He recalls the event. Did have what he describes as bilateral eye symptoms for about 15 minutes afterwards describing his eyes moving or blinking about without his control. He had not vomit. He did not feel that this event was nearly as severe as what had occurred 9 months . ago. Has a long history of difficult to manage gout. Although he has not had any major outbreak of painful gout, he has had development of tophi especially over his left elbow. Has removed a couple of tophi from the elbow region recently. Patient Active Problem List Diagnosis OVERWEIGHT, BMI= [...] of right hand Closed injury of head Current Outpatient Medications Medication Sig Dispense Refill [...] 0.1 % Nasal Solution (Astelin) Administer 1 [place] into nostril in the morning and 1 [place] before bedtime. 90 mL 3 No current facility-administered medications for this visit. Review of patient's allergies indicates: Allergen Reactions Corticosteroids Psych complications Injections are ok, unable to tolerate oral Indomethacin Can tolerate Ibuprofen OK. Warfarin Sodium Shakes, dizziness Objective: BP 112/76 | Pulse 78 | Temp 36.5 °C (97.7 °F) (Tympanic) | Resp 16 | Ht 1.829 m (6') | Wt 94.2 kg (207 lb 9.6 oz) | SpO2 96% | BMI 28.16 kg/m² | BSA 2.19 m² Physical Exam: CONST: alert, pleasant, no acute distress HEAD: normocephalic, atraumatic NECK: supple, soft, no adenopathy EARS: canals normal, TMs normal Eyes - PERRLA, EOM'I. He does have very slight horizontal nystagmus of both eyes. OROPHARYNX: clear, no swelling or erythema, moist CV: regular rate and rhythm, no murmur CHEST: clear to auscultation bilaterally, no rales or wheezing ABD: soft, non tender, non distended, no masses or hepatosplenomegaly EXT: no edema, no joint swelling or deformities, NEURO: AAOx3, no gross focal deficits, cerebellar signs normal, affect appropriate MENTAL STATUS: no evidence of thought disorder, no delusional thought, no evidence of paranoia, thought is non-tangential. SKIN: no rash or significant lesions ASSESSMENT/PLAN: Gouty arthropathy (Primary) with tophi - URIC ACID; Future; Expected date: 01/22/2024 - RHEUMATOLOGY REFERRAL OP Need for pneumococcal vaccination - PNEUMOCOCCAL VACC, PCV20, IM ([id number]) Encounter for long-term (current) use of medications-omeprazole - VITAMIN B12; Future; Expected date: 01/22/2024 - MAGNESIUM; Future; Expected date: 01/22/2024 History of concussion-he does have follow-up with Neurology in January. Follow Up: Return in about 4 months (around 05/24/2024). Desean Raymond MD * Kayley Joshua LPN - 01/22/2024 12:44 PM EDT Immunization Administration Documentation Time Out Procedure Performed: Yes Patient Identified (Ask Name/Date of ): Yes Does the patient have a fever greater than 101 degrees today? No Patient allergic to latex? No VFC Stock: No Immunization(s) verified: Yes, Immunization Name: Prevnar 20 (PCV20), VIS Sheet(s) given: Yes Verified Side and Site: Yes Verified Shot(s) with Parent(s)/Patient: Yes * Desean Raymond MD - 01/22/2024 12:18 PM EDT Subjective: Zackary Zhou is a 58 year old male. Chief Complaint Patient presents with Physical-Exam Patient is here today for a physical. Patient states he hit his head off of a metal door on Friday, states he has had an ongoing headache since. Patient states after hitting his head he could not stop blinking for about 20 minutes. Patient has been taking OTC medication for the headache and states it gives him no relief. Patient would like to have spots checked on his left elbow. HPI: Patient Active Problem List Diagnosis OVERWEIGHT, BMI= [...] of right hand Closed injury of head Current Outpatient Medications Medication Sig Dispense Refill [...] 0.1 % Nasal Solution (Astelin) Administer 1 [place] into nostril in the morning and 1 [place] before bedtime. 90 mL 3 No current facility-administered medications for this visit. Review of patient's allergies indicates: Allergen Reactions Corticosteroids Psych complications Injections are ok, unable to tolerate oral Indomethacin Can tolerate Ibuprofen OK. Warfarin Sodium Shakes, dizziness Objective: BP 112/76 | Pulse 78 | Temp 36.5 °C (97.7 °F) (Tympanic) | Resp 16 | Ht 1.829 m (6') | Wt 94.2 kg(207 lb 9.6 oz) | SpO2 96% | BMI 28.16 kg/m² | BSA 2.19 m² Physical Exam: CONST: alert, pleasant, no acute distress HEAD: normocephalic, atraumatic NECK: supple, soft, no adenopathy EARS: canals normal, TMs normal NARES: clear Eyes - PERRLA, EOM'I OROPHARYNX: clear, no swelling or erythema, moist CV: regular rate and rhythm, no murmur CHEST: clear to auscultation bilaterally, no rales or wheezing ABD: soft, non tender, non distended, no masses or hepatosplenomegaly EXT: no edema, no joint swelling or deformities, NEURO: AAOx3, no gross focal deficits, cerebellar signs normal, affect appropriate MENTAL STATUS: no evidence of thought disorder, no delusional thought, no evidence of paranoia, thought is non-tangential. SKIN: no rash or significant lesions ASSESSMENT/PLAN: Vaccine for viral hepatitis Need for pneumococcal vaccination Desean Raymond MD documented in this encounter Nursing Notes * Giuliana Martines LPN - 01/22/2024 11:46 AM EDT The patient has been properly identified by confirmation of name and date of . Chief Complaint Patient presents with Physical-Exam Patient is here today for a physical. Patient states he hit his head off of a metal door on Friday, states he has had an ongoing headache since. Patient states after hitting his head he could not stop blinking for about 20 minutes. Patient has been taking OTC medication for the headache and states it gives him no relief. Patient would like to have spots checked on his left elbow. documented in this encounter Plan of Treatment Upcoming Encounters Date Type Department Care Team (Late st Contact Info) Description 01/29/2024 9:00 AM EDT Office Visit Otolaryngology [facility] [address] [place] [address] Bobbi Heath PA-C [address] [place] [address] 02/12/2024 9:00 AM EST Office Visit Neurology [place], [place] [address] [facility] [place] [address] Krystina Spain PA-C [address] [address] 04/29/2024 8:20 AM EST Office Visit Rheumatology [facility] [address] [facility] [place] [address] Jaron Buckner MD [address] [facility] [place] [address] 05/27/2024 9:00 AM EST Office Visit [facility] [address] [place] [address] Desean Raymond MD [address] [place], [place] [id number] Pending Results Name Type Priority Associated Diagnoses Date /Time URIC ACID Lab Routine Gouty arthropathy 01/22/2024 12:53 PM EDT VITAMIN B12 Lab Routine Encounter for long-term (current) use of medications 01/22/2024 12:53 PM EDT MAGNESIUM Lab Routine Encounter for long-term (current) use of medications 01/22/2024 12:53 PM EDT Scheduled Orders Name Type Priority Associated Diagnoses Orde r Schedule URIC ACID Lab Routine Gouty arthropathy Expected: 01/22/2024 (Approximate), Expires: 01/21/2025 VITAMIN B12 Lab Routine Encounter for long-term (current) use of medications Expected: 01/22/2024 (Approximate), Expires: 01/21/2025 MAGNESIUM Lab Routine Encounter for long-term (current) use of medications Expected: 01/22/2024 (Approximate), Expires: 01/21/2025 Scheduled Procedures Name Priority Associated Diagnoses Date/Ti me COLONOSCOPY FLEXIBLE PROXIMA L DIAGNOSTIC Recall Special screening for malignant neoplasms, colon Scheduled Referrals Name Type Priority Associated Diagnoses Orde r Schedule RHEUMATOLOGY REFERRAL OP Referral Within 30 days (routine) Gouty arthropathy Ordered: 01/22/2024 Health Maintenance Due Date Last Done Comments [...] this encounter Medical Devices Implanted Type Area Blackjack Pit Boss Device Identifier Shelf Expiration Date Model / Serial / Lot Ventralex St Hernia Patch Implanted:Qty: 1 on 10/25/2014 by Desean Hernandez MD at OR [facility] N/A: Abdomen INACTIVE CR [employer] 03/30/2016 [id number] / / [id number] documented as of this encounter Visit Diagnoses Diagnosis Gouty arthropathy- Primary Gouty arthropathy, unspecified Vaccine for viral hepatitis Need for prophylactic vaccination and inoculation against viral hepatitis Need for pneumococcal vaccination Need for prophylactic vaccination against streptococcus pneumoniae (pneumococcus) Encounter for long-term (current) use of medications Encounter for long-term (current) use of other medications documented in this encounter Advance Directives * [...] the patient have Health Care Power of Dry Goods Clerk? No Care Teams Valve Grinder Relationship Specialty Start Date End Date Desean Raymond MD [address] [place] [address] PCP - General Family Medicine 03/16/20 documented as of this encounter"
--- OUTSIDE RECORDS SUMMARY | 2024-07-04 10:03 | External Medical Summary | Summary of Care ---
Author Name Unknown Organization [facility] Address [address] [place] [address] Phone [phone] Care Team Providers Care Talent Agent Name Role Phone Desean Raymond MD Primary Care Provider [phone] Reason for Visit * Reason Onset Date Comments Appointment 01/08/2024 Colonoscopy Encounter Details Date Type Department Care Team (Late st Contact Info) Description 01/08/2024 Telephone Gastroenterology, [place] [address] [place] [address] Specified, Zz No Resource [address] [place] [address] Appointment (Colonoscopy ) Allergies Active Allergy Reactions Criticality Noted Date Comments Corticosteroids Psych complications 12/18/2004 Injections are ok, unable to tolerate oral Indomethacin 06/12/2000 Can tolerate Ibuprofen OK. Warfarin Sodium 12/08/2010 Shakes, dizziness documented as of this encounter (statuses as of 02/02/2024) Medications Medication Sig Dispensed Refills Start Date [...] Nasal Solution (Astelin)Indicati ons:Schatzki's ring Administer 1 [place] into nostril in the morning and 1 [place] before bedtime. 90 mL 3 01/16/2023 Active [...] as of this encounter (statuses as of 02/02/2024) Active Problems Problem Noted Date Diagnosed Date [...] as of this encounter (statuses as of 02/02/2024) Resolved Problems Problem Noted Date Diagnosed Date [...] as of this encounter (statuses as of 02/02/2024) Immunizations Name Administration Dates Next Due COVID-19 mRNA, LNP-s, No Pre serve, 2-Dose Series ([employer] 07/04/2020,06/13/2020 HEP A - Hepatitis A (Adult > 18 yrs) 05/18/2014 11/15/2014 Pneumococcal Conjugate Vacci ne, 20-valent ([id number]) 01/22/2024 Pneumococcal Polysaccharide PPV23 (Pneumovax) 04/29/2007 Seasonal [...] encounter Miscellaneous Notes * Telephone Encounter - Carolina Polk OSA - 02/02/2024 3:41 PM EST Scheduled OLGA Carreon 02/02/2024 3:41 PM * Telephone Encounter - Carolina Polk OSA - 01/13/2024 4:26 PM EDT lmm * Telephone Encounter - Starr Atkinson OSA - 01/08/2024 2:36 PM EDT Order COLONOSCOPY, GI REFERRAL OP [[id number]] (Order [id number]) Miguel Angel Perry 01/08/2024 11:40 AM Office Visit Description: 58 year old male Provider: Desean Raymond MD Department: [facility] Order Information Date and Time Department Ordering/Authorizing 01/08/2024 12:58 PM [facility] Desean Raymond MD Order Providers Authorizing Provider Encounter Provider ([id number]) Desean Raymond MD ([id number]) Desean Raymond MD Priority and Order Details Priority Class Within 30 days (routine) Referral Quantity Ordering Quantity 1 Collection Information Visit Disposition Check-out Note Refer to [facility] headache clinic. This is ordered as a neurology referral as there is no order within [facility] for headache clinic Comments ALERT: Do not order for pediatric patients (18 years or younger). Cancel off screen and order PEDS GASTROENTEROLOGY CONSULT (Type: 1 visit only-Evaluate and Treat) The following Pt. Instructions are available: - Gastro Colonoscopy Prep Instructions [45093] - Gastro Colonoscopy Prep Instructions (Singaporean Version) [[id number]] Go to the Pt. Instructions section within the Visit Navigator to access. Colonoscopy ASGE Guidelines: Average risk screening (begin at age 50, 10 year intervals) ADDITIONAL INFORMATION 1. Is the patient on Coumadin? No 2. Is the patient on Pradaxa? No Order Questions Question Answer Referral Priority Within 30 days (routine) Where should this appointment be scheduled? [facility] Referral (Pending Review) ID: [id number] Created on: 01/08/2024 Referred by Referred to Desean Raymond MD Gastroenterology Reason: Ancillary Services Required Priority: Within 30 days (routine) Type: Ancillary Services Visits Requested: 999 Decision Date: 01/08/2024 Start Date: 01/08/2024 Related Appointments None Associated Diagnoses Special screening for malignant neoplasms, colon [Z12.11] Colon cancer screening [Z12.11] Encounter View Encounter Reprint Requisition COLONOSCOPY, GI REFERRAL OP (Order #[id number]) on 01/08/24 Detailed Information Priority and Order Details Reference Links Neighborly Acct Guarantor Acct Type [id number] MIGUEL ANGEL PERRY Personal/Family [1] Service Location Name Address Phone [address] [phone] Currently Active Insurance Payor Plan Subscriber Member ID BLUE CROSS BLUE SHIELD OOS BCBS OOS MIGUEL ANGEL PERRY [id number] documented in this encounter Plan of Treatment Upcoming Encounters Date Type Department Care Team (Late st Contact Info) Description 02/12/2024 9:00 AM EST Office Visit Neurology [facility] [address] [facility] [place] [place] [address] Krystina Spain PA-C [facility] [place] [address] 02/18/2024 8:00 AM EST Office Visit Otolaryngology [facility] [address] [facility] [place] [address] Tom Orosco DO [address] [facility] [place] [address] 04/29/2024 8:20 AM EST Office Visit Rheumatology [place] [address] Kater[address] [place] [address] Jaron Buckner MD [facility] [facility] [place] [address] 05/27/2024 9:00 AM EST Office Visit [facility] [address] [facility] [place] [address] Desean Raymond MD [address] [place] [facility] [place] [address] 07/22/2024 8:00 AM EDT Hospital Encounter ENDO [facility], Endoscopy Room [facility] [address] [place] [phone] Suni Orourke MD [address] [place], [place] [id number] 07/22/2024 8:00 AM EDT - 07/22/2024 8:30 AM EDT Surgery ENDO [facility], Endoscopy Room [facility] [address] [facility] [place] [phone] Suni Orourke MD [address] [place] [address] COLONOSCOPY FLEXIBLE PROXIMAL DIAGNOSTIC Scheduled Procedures [...] this encounter Medical Devices Implanted Type Area Electricity Trading Analyst Device Identifier Shelf Expiration Date Model / Serial / Lot Ventralex St Hernia Patch Implanted:Qty: 1 on 10/25/2014 by Desean Hernandez MD at OR [facility] N/A: Abdomen INACTIVE [employer] 03/30/2016 [id number] / / [id number] documented as of this encounter Advance Directives [...] the patient have Health Care Power of Vegetable Washer? No Care Teams Talent Agent Relationship Specialty Start Date End Date Desean Raymond MD [address] [place] [address] PCP - General Family Medicine 03/16/20 documented as of this encounter
--- OUTSIDE RECORDS SUMMARY | 2024-07-04 10:03 | External Medical Summary ---
Author Name Unknown Address Unknown Organization K01:[facility] [address] [place] [address] Laboratory Report Ordering Provider Test Date Status ANNETTE BRAUN 01/22/2024 12:53:55 Final Observation Date Value Abnormality Reference (Units ) Status Magnesium 01/22/2024 12:53:55 2.2 1.5-2.6 (m g/dL) Final Performing Location [facility] [address] [place] [address]
--- OUTSIDE RECORDS SUMMARY | 2024-07-04 10:03 | External Medical Summary | Summary of Care ---
Author Name Unknown Organization [facility] Address [address] [place] [address] Phone [phone] Care Team Providers Care Drapery Hemmer Automatic Name Role Phone Desean Raymond MD Primary Care Provider [phone] Reason for Visit * Reason Comments Outpatient Testing Encounter Details Date Type Department Care Team (Late st Contact Info) Description 01/22/2024 12:50 PM EDT Laboratory Laboratory, [facility] [address] [place] [address] [facility] [address], [place] [id number] Gouty arthropathy; Encounter for long-term (current) use of medications Allergies Active Allergy Reactions Criticality Noted Date Comments Corticosteroids Psych complications 12/18/2004 Injections are ok, unable to tolerate oral Indomethacin 06/12/2000 Can tolerate Ibuprofen OK. Warfarin Sodium 12/08/2010 Shakes, dizziness documented as of this encounter (statuses as of 01/22/2024) Medications Medication Sig Dispensed Refills Start Date End Date Status cetirizine (ZYRTEC) 10 MG TabletIndications:C hronic rhinitis [...] Nasal Solution (Astelin)Indication s:Schatzki's ring Administer 1 [place] into nostril in the morning and 1 [place] before bedtime. 90 mL 3 01/16/2023 Active documented as of this encounter (statuses [...] mRNA, LNP-s, No Pre serve, 2-Dose Series ([employer]) 07/04/2020,06/13/2020 HEP A - Hepatitis A (Adult > 18 yrs) 05/18/2014 11/15/2014 Pneumococcal Conjugate Vacci ne, 20-valent ([id number]) 01/22/2024 Pneumococcal Polysaccharide PPV23 (Pneumovax) 04/29/2007 Seasonal [...] 01/29/2024 9:00 AM EDT Office Visit Otolaryngology [facility] [address] [address] Bobbi Heath PA-C [address] [address] 02/12/2024 9:00 AM EST Office Visit [facility] [address] [facility] [address] Krystina Spain PA-C [address] [address] 04/29/2024 8:20 AM EST Office Visit Rheumatology [facility] [address] [facility] [place] [address] Jaron Buckner MD [address] [place] [address] 05/27/2024 9:00 AM EST Office Visit [facility] [address] [place] [address] Desean Raymond MD [address] [place] [address] Pending Results Name Type Priority Associated Diagnoses Date /Time URIC ACID Lab Routine Gouty arthropathy 01/22/2024 12:53 PM EDT VITAMIN B12 Lab Routine Encounter for long-term (current) use of medications 01/22/2024 12:53 PM EDT MAGNESIUM Lab Routine Encounter for long-term (current) use of medications 01/22/2024 12:53 PM EDT Scheduled Procedures Name Priority Associated Diagnoses Date/Ti me COLONOSCOPY FLEXIBLE PROXIMA L DIAGNOSTIC Recall Special screening for malignant neoplasms, colon Health Maintenance Due Date Last Done Comments [...] Additional history exists Lipid Panel 05/05/2028 05/05/2023, 08/ 05/2022, 01/10/2020, Additional history exists Hepatitis C [...] this encounter Medical Devices Implanted Type Area Geospatial Intelligence Analyst Device Identifier Shelf Expiration Date Model / Serial / Lot Ventralex St Hernia Patch Implanted:Qty: 1 on 10/25/2014 by Desean Hernandez MD at OR [facility] N/A: Abdomen INACTIVE CR [employer] 03/30/2016 [id number] / / [id number] documented as of this encounter Visit Diagnoses Diagnosis Gouty arthropathy Gouty arthropathy, unspecified Encounter for long-term (current) use of medications [...] the patient have Health Care Power of Piece Goods Packer? No Care Teams Drapery Hemmer Automatic Relationship Specialty Start Date End Date Desean Raymond MD [address] [place] [address] PCP - General Family Medicine 03/16/20 documented as of this encounter
--- OUTSIDE RECORDS SUMMARY | 2024-07-04 10:03 | External Medical Summary | Summary of Care ---
Author Name Unknown Organization [facility] Address [address] [place] [address] Phone [phone] Care Team Providers Care Electrical Appliance Servicer Name Role Phone Desean Raymond MD Primary Care Provider [phone] Reason for Referral * Evaluate & Treat - Unlimited Visits (Within 30 days (routine)) - Pending Review Specialty Diagnoses / Procedures Referred By Elly lui Referred To Contact Otolaryngology Diagnoses Nasal polyp Desean Raymond MD [address] [place] [address] Referral ID Status Reason Start Date Expiration Date Visits Requested Visits Authorized [id number] Pending Review Specialty Services Required 4 [phone] Question Answer Referral Priority Within 30 days (routine) Where should this appointment be scheduled? [facility] Reason for Referral Nasal/Sinus/Allergy Conditions Specific Condition: Nasal Polyps Comments Left sided sinus polyp - incidental on MRI brain Encounter Details Date Type Department Care Team (Late st Contact Info) Description 01/18/2024 Telephone [facility] [address] [place] [address] Desean Raymond MD [address] [place] [address] Allergies Active Allergy Reactions Criticality Noted Date Comments Corticosteroids Psych complications 12/18/2004 Injections are ok, unable to tolerate oral Indomethacin 06/12/2000 Can tolerate Ibuprofen OK. Warfarin Sodium 12/08/2010 Shakes, dizziness documented as of this encounter (statuses as of 01/18/2024) Medications Medication Sig Dispensed Refills Start Date [...] Nasal Solution (Astelin)Indication s:Schatzki's ring Administer 1 [place] into nostril in the morning and 1 [place] before bedtime. 90 mL 3 01/16/2023 Active Midodrine HCl 2.5 MG Oral Tablet (Proamatine) 1 Tablet. Active Celecoxib 200 MG Oral Capsule (CeleBREX) Take 1 Capsule by mouth in the morning. In the morning.. 14 Capsule 05/19/2023 Active Additional Information Patient not taking.Reported on 01/08/2024 documented as of this encounter (statuses as of 01/18/2024) Active Problems Problem Noted Date Diagnosed Date [...] as of this encounter (statuses as of 01/18/2024) Resolved Problems Problem Noted Date Diagnosed Date [...] as of this encounter (statuses as of 01/18/2024) Immunizations Name Administration Dates Next Due COVID-19 mRNA, LNP-s, No Pre serve, 2-Dose Series ([employer]) 07/04/2020,06/13/2020 HEP A - Hepatitis A (Adult [...] encounter Miscellaneous Notes * Telephone Encounter - Desean Raymond MD [...] Description 01/22/2024 11:40 AM EDT Office Visit [facility] [address] [place] [address] Desean Raymond MD [address] [place] [address] 02/12/2024 9:00 AM EST Office Visit Neurology [facility] [address] [place] [address] Krystina Spain PA-C [address] [facility] [place] [address] Scheduled Procedures Name Priority Associated Diagnoses Date/Ti [...] this encounter Medical Devices Implanted Type Area Rope Tow Operator Device Identifier Shelf Expiration Date Model / Serial / Lot Ventralex St Hernia Patch Implanted:Qty: 1 on 10/25/2014 by Desean Hernandez MD at OR [facility] N/A: Abdomen INACTIVE CR [employer] 03/30/2016 [id number] / / [id number] documented as of this encounter Visit Diagnoses [...] the patient have Health Care Power of Radiologic Technology Program Director? No Care Teams Electrical Appliance Servicer Relationship Specialty Start Date End Date Desean Raymond MD [address] [place] [address] [address] PCP - General Family Medicine 03/16/20 documented as of this encounter
--- OUTSIDE RECORDS SUMMARY | 2024-07-04 10:03 | External Medical Summary ---
Author Name Unknown Address Unknown Organization K01:[facility] [place] [address] [place] [address] Laboratory Report Ordering Provider Test Date Status IMELDA BRAUNKIRSTY 01/22/2024 12:53:55 Final Observation Date Value Abnormality Reference (Units ) Status Uric Acid 01/22/2024 12:53:55 10.4 Above high normal 3. 4-7.0 (mg/dL) Final Performing Location LABORATORY C - [address] [place] [address]
--- OUTSIDE RECORDS SUMMARY | 2024-07-04 10:03 | External Medical Summary | Summary of Care ---
Author Name Unknown Organization [facility] Address [address] [place] [address] Phone [phone] Care Team Providers Care Foot Caster Name Role Phone Desean Raymond MD Primary Care Provider [phone] Reason for Visit * Reason Onset Date Comments Appointment 01/08/2024 Colonoscopy Encounter Details Date Type Department Care Team (Late st Contact Info) Description 01/08/2024 Telephone Gastroenterology, [place] [address] [place] [address] Specified, Zz No Resource [address] [place] [address] Appointment (Colonoscopy ) Allergies Active Allergy Reactions Criticality Noted Date Comments Corticosteroids Psych complications 12/18/2004 Injections are ok, unable to tolerate oral Indomethacin 06/12/2000 Can tolerate Ibuprofen OK. Warfarin Sodium 12/08/2010 Shakes, dizziness documented as of this encounter (statuses as of 01/13/2024) Medications Medication Sig Dispensed Refills Start Date [...] Nasal Solution (Astelin)Indication s:Schatzki's ring Administer 1 [place] into nostril in the morning and 1 [place] before bedtime. 90 mL 3 01/16/2023 Active Midodrine HCl 2.5 MG Oral Tablet (Proamatine) 1 Tablet. Active Celecoxib 200 MG Oral Capsule (CeleBREX) Take 1 Capsule by mouth in the morning. In the morning.. 14 Capsule 05/19/2023 Active Additional Information Patient not taking.Reported on 01/08/2024 documented as of this encounter (statuses as of 01/13/2024) Active Problems Problem Noted Date Diagnosed Date [...] as of this encounter (statuses as of 01/13/2024) Resolved Problems Problem Noted Date Diagnosed Date [...] as of this encounter (statuses as of 01/13/2024) Immunizations Name Administration Dates Next Due COVID-19 mRNA, LNP-s, No Pre serve, 2-Dose Series ([employer]) 07/04/2020,06/13/2020 HEP A - Hepatitis A (Adult [...] PM EDT Order COLONOSCOPY, GI REFERRAL OP [[id number]] (Order [id number]) Zackary Haile Winnie 01/08/2024 11:40 AM Office Visit Description: 58 year old male Provider: Desean Raymond MD Department: [facility] Order Information Date and Time Department Ordering/Authorizing 01/08/2024 12:58 [facility] [place] Order Providers Authorizing Provider Encounter Provider ([id number]) Desean Raymond MD ([id number]) Desean Raymond MD Priority and Order Details Priority Class Within 30 days (routine) Referral Quantity Ordering Quantity 1 Collection Information Visit Disposition Check-out Note Refer to [facility] headache clinic. This is ordered as a neurology referral as there is no order within [facility] for headache clinic Comments ALERT: Do not order for pediatric patients (18 years or younger). Cancel off screen and order PEDS GASTROENTEROLOGY CONSULT (Type: 1 visit only-Evaluate and Treat) The following Pt. Instructions are available: - Gastro Colonoscopy Prep Instructions [[id number]] - Gastro Colonoscopy Prep Instructions (Upper Sorbian Version) [[id number]] Go to the Pt. Instructions section within the Visit Navigator to access. Colonoscopy ASGE Guidelines: Average risk screening (begin at age 50, 10 year intervals) ADDITIONAL INFORMATION 1. Is the patient on Coumadin? No 2. Is the patient on Pradaxa? No Order Questions Question Answer Referral Priority Within 30 days (routine) Where should this appointment be scheduled? [facility] Referral (Pending Review) ID: [id number] Created on: 01/08/2024 Referred by Referred to Desean Raymond MD Gastroenterology Reason: Ancillary Services Required Priority: Within 30 days (routine) Type: Ancillary Services Visits Requested: 999 Decision Date: 01/08/2024 Start Date: 01/08/2024 Related Appointments None Associated Diagnoses Special screening for malignant neoplasms, colon [Z12.11] Colon cancer screening [Z12.11] Encounter View Encounter Reprint Requisition COLONOSCOPY, GI REFERRAL OP (Order #[id number]) on 01/08/24 Detailed Information Priority and Order Details Reference Links Neighborly Acct Guarantor Acct Type [id number] ZACKARY PERRY Personal/Family [1] Service Location Name Address Phone [address] [phone] Currently Active Insurance Payor Plan Subscriber Member ID BLUE CROSS BLUE SHIELD OOS BCBS OOS ZACKARY PERRY [id number] documented in this encounter Plan of Treatment Upcoming Encounters Date Type Department Care Team (Late st Contact Info) Description 01/14/2024 2:30 PM EDT Imaging Radiology [facility] [address] [facility] [place] [address] [facility] [place] [address] 01/22/2024 11:40 AM EDT Office Visit [facility] [address] [facility] [phone] Desean Raymond MD [address] [place] [address] 02/12/2024 9:00 AM EST Office Visit Neurology [facility] [address] [facility] [address] Krystina Spain PA-C [address] [place] [address] Scheduled Procedures Name Priority Associated Diagnoses Date/Ti [...] this encounter Medical Devices Implanted Type Area Energy Economist Device Identifier Shelf Expiration Date Model / Serial / Lot Ventralex St Hernia Patch Implanted:Qty: 1 on 10/25/2014 by Desean Hernandez MD at OR [facility] N/A: Abdomen INACTIVE CR [employer] 03/30/2016 [id number] / / [id number] documented as of this encounter Advance Directives [...] the patient have Health Care Power of Copy Lathe Tender? No Care Teams Foot Caster Relationship Specialty Start Date End Date Desean Raymond MD [address] [place] [address] PCP - General Family Medicine 03/16/20 documented as of this encounter
--- OUTSIDE RECORDS SUMMARY | 2024-07-04 10:03 | External Medical Summary | Summary of Care ---
Author Name Unknown Organization [facility] Address [address] [place] [address] Phone [phone] Care Team Providers Care Model Making Supervisor Name Role Phone Desean Raymond MD Primary Care Provider [phone] Reason for Referral * Evaluate & Treat - Unlimited Visits (Within 30 days (routine)) - Pending Review Specialty Diagnoses / Procedures Referred By Elly lui Referred To Contact Otolaryngology Diagnoses Nasal polyp Desean Raymond MD [address] [place] [address] Referral ID Status Reason Start Date Expiration Date Visits Requested Visits Authorized [id number] Pending Review Specialty Services Required 4 999 [...] (Late st Contact Info) Description 01/18/2024 Telephone [facility] [address] [place] [address] Desean Raymond MD [address] [place] [address] Nurse Documentation Allergies Active Allergy Reactions Criticality Noted Date Comments Corticosteroids Psych complications 12/18/2004 Injections are ok, unable to tolerate oral Indomethacin 06/12/2000 Can tolerate Ibuprofen OK. Warfarin Sodium 12/08/2010 Shakes, dizziness documented as of this encounter (statuses as of 01/21/2024) Medications Medication Sig Dispensed Refills Start Date [...] Nasal Solution (Astelin)Indication s:Schatzki's ring Administer 1 [place] into nostril in the morning and 1 [place] before bedtime. 90 mL 3 01/16/2023 Active Midodrine HCl 2.5 MG Oral Tablet (Proamatine) 1 Tablet. Active Celecoxib 200 MG Oral Capsule (CeleBREX) Take 1 Capsule by mouth in the morning. In the morning.. 14 Capsule 05/19/2023 Active Additional Information Patient not taking.Reported on 01/08/2024 documented as of this encounter (statuses as of 01/21/2024) Active Problems Problem Noted Date Diagnosed Date [...] as of this encounter (statuses as of 01/21/2024) Resolved Problems Problem Noted Date Diagnosed Date [...] as of this encounter (statuses as of 01/21/2024) Immunizations Name Administration Dates Next Due COVID-19 mRNA, LNP-s, No Pre serve, 2-Dose Series ([employer]) 07/04/2020,06/13/2020 HEP A - Hepatitis A (Adult [...] Description 01/22/2024 11:40 AM EDT Office Visit [facility] [address] [place] [address] Desean Raymond MD [address] [place] [address] 01/29/2024 9:00 AM EDT Office Visit Otolaryngology [facility] [address] [address] Bobbi Heath PA-C [address] [place] [address] 02/12/2024 9:00 AM EST Office Visit Neurology [facility] [place] [address] [place] [address] Krystina Spain PA-C [address] [place] [address] Scheduled Procedures Name Priority Associated Diagnoses Date/Ti [...] this encounter Medical Devices Implanted Type Area Engineering Test Mechanic Device Identifier Shelf Expiration Date Model / Serial / Lot Ventralex St Hernia Patch Implanted:Qty: 1 on 10/25/2014 by Desean Hernandez MD at OR [facility] N/A: Abdomen INACTIVE CR [employer] 03/30/2016 [id number] / / [id number] documented as of this encounter Visit Diagnoses [...] the patient have Health Care Power of Ore Charger? No Care Teams Model Making Supervisor Relationship Specialty Start Date End Date Desean Raymond MD [address] [place] [address] PCP - General Family Medicine 03/16/20 documented as of this encounter
--- OUTSIDE RECORDS SUMMARY | 2024-07-04 10:03 | External Medical Summary | Summary of Care ---
Author Name Unknown Organization [facility] Address [address] [facility] [place] [address] Phone [phone] Care Team Providers Care Boiler Inspector Name Role Phone Desean Raymond MD Primary Care Provider Reason for Visit * Reason Onset Date Comments Appointment 01/12/2024 Encounter Details Date Type Department Care Team (Late st Contact Info) Description 01/12/2024 [address]phone [address] [facility] [place] [id number] Gely Rivera TECH Appointment Allergies Active Allergy Reactions Criticality Noted Date Comments Corticosteroids Psych complications 12/18/2004 Injections are ok, unable to tolerate oral Indomethacin 06/12/2000 Can tolerate Ibuprofen OK. Warfarin Sodium 12/08/2010 Shakes, dizziness documented as of this encounter (statuses as of 01/12/2024) Medications Medication Sig Dispensed Refills Start Date [...] Nasal Solution (Astelin)Indication s:Schatzki's ring Administer 1 [place] into nostril in the morning and 1 [place] before bedtime. 90 mL 3 01/16/2023 Active Midodrine HCl 2.5 MG Oral Tablet (Proamatine) 1 Tablet. Active Celecoxib 200 MG Oral Capsule (CeleBREX) Take 1 Capsule by mouth in the morning. In the morning.. 14 Capsule 05/19/2023 Active Additional Information Patient not taking.Reported on 01/08/2024 documented as of this encounter (statuses as of 01/12/2024) Active Problems Problem Noted Date Diagnosed Date [...] as of this encounter (statuses as of 01/12/2024) Resolved Problems Problem Noted Date Diagnosed Date [...] as of this encounter (statuses as of 01/12/2024) Immunizations Name Administration Dates Next Due COVID-19 mRNA, LNP-s, No Pre serve, 2-Dose Series ([employer]) 07/04/2020,06/13/2020 HEP A - Hepatitis A (Adult [...] Description 01/14/2024 2:30 PM EDT Imaging Radiology [facility] [address] [facility] [place] [address] [facility] [place] [address] 01/22/2024 11:40 AM EDT Office Visit [facility] [address] [place] [address] Desean Raymond MD [address] [facility] [address] 02/12/2024 9:00 AM EST Office Visit Neurology [facility] [place] [address] [place] [address] Krystina Spain PA-C [address] [place] [address] Scheduled Procedures Name Priority Associated Diagnoses Date/Ti [...] this encounter Medical Devices Implanted Type Area Coconut Boiler Device Identifier Shelf Expiration Date Model / Serial / Lot Ventralex St Hernia Patch Implanted:Qty: 1 on 10/25/2014 by Desean Hernandez MD at OR [facility] N/A: Abdomen INACTIVE CR [employer] 03/30/2016 [id number] / / [id number] documented as of this encounter Advance Directives [...] the patient have Health Care Power of Wood Heel Flap Rubber? No Care Teams Boiler Inspector Relationship Specialty Start Date End Date Desean Raymond MD [address] [place] [address] PCP - General Family Medicine 03/16/20 documented as of this encounter
--- OUTSIDE RECORDS SUMMARY | 2024-07-04 10:04 | External Medical Summary | Summary of Care ---
Author Name Unknown Organization [facility] Address [address] [place] [address] Phone [phone] Care Team Providers Care Theology Professor Name Role Phone Desean Raymond MD Primary Care Provider [phone] Reason for Referral * Evaluate & Treat - Unlimited Visits (Within 30 days (routine)) - Pending Review Specialty Diagnoses / Procedures Referred By Elly lui Referred To Contact Neurology Diagnoses Post-concussion headache Desean Raymond MD [address] [place] [address] Referral ID Status Reason Start Date Expiration Date Visits Requested Visits Authorized [id number] Pending Review Specialty Services Required 4 [phone] Question Answer Referral Priority Within 30 days (routine) Where should this appointment be scheduled? [facility] This patient already has care established with Neurology. Do not place this order. Please use Ask A Doc to expedite care. Acknowledge Is this referral being placed for insurance purposes ONLY No, patient needs appointment [facility] NEUROLOGY REFERRAL QUESTIONS Headache Has the patient tried 1 abortive and 1 preventative medication? No Comments Concussion 02/05/23. Recurrent headache since. More frequent in last several months and localized to left temporal area. * Precert (Within 10 days (routine)) - Authorized Specialty Diagnoses / Procedures Referred By Elly lui Referred To Contact Radiology Diagnoses Post-concussion headache Procedures MRI BRAIN WITHOUT CONTRAST Desean Raymond MD [address] [place] [address] Referral ID Status Reason Start Date Expiration Date V isits Requested Visits Authorized [id number] Authorized Precert 01/08/2024 02/08/[phone] * Ancillary Services (Within 30 days (routine)) - Pending Review Specialty Diagnoses / Procedures Referred By Contac t Referred To Contact Gastroenterology Diagnoses Special screening for malignant neoplasms, colon Colon cancer screening Desean Raymond MD [address] [place] [address] Referral ID Status Reason Start Date Expiration Date Visits Requested Visits Authorized [id number] Pending Review Ancillary Services Required [phone] Question Answer Referral Priority Within 30 days (routine) Where should this appointment be scheduled? [facility] Comments ALERT: Do not order for pediatric patients (18 years or younger). Cancel off screen and order PEDS GASTROENTEROLOGY CONSULT (Type: 1 visit only-Evaluate and Treat) The following Pt. Instructions are available: - Gastro Colonoscopy Prep Instructions [[id number]] - Gastro Colonoscopy Prep Instructions (Latvian Version) [[id number]] Go to the Pt. Instructions section within the Visit Navigator to access. Colonoscopy ASGE Guidelines: Average risk screening (begin at age 50, 10 year intervals) ADDITIONAL INFORMATION 1. Is the patient on Coumadin? No 2. Is the patient on Pradaxa? No Reason for Visit * Reason Comments Acute Patient is here toda y due to headaches that are daily. Patient states he had a concussion 9 mo ago and since he has been having headaches in the left orthodoxy where he was hit. Patient states the headaches move in behind his left eye and did have his eyes checked by an eye doctor and was told his eyes look good.Patient is taking medication and states within a couple hours is wears off. Patient states the left side of face gets tender to touch, states always on left side. Encounter Details Date Type Department Care Team ([facility] st Contact Info) Description 01/08/2024 11:40 AM EDT Office Visit [facility] [address] [place] [id number] Desean Raymond MD [address] [place] [address] Need for prophylactic vaccination and inoculation against influenza*; Need for pneumococcal vaccination; Vaccine for viral hepatitis; Special screening for malignant neoplasms, colon; Episodic tension-type headache, not intractable; Post-concussion headache; Colon cancer screening Allergies Active Allergy Reactions Criticality Noted Date Comments Corticosteroids Psych complications 12/18/2004 Injections are ok, unable to tolerate oral Indomethacin 06/12/2000 Can tolerate Ibuprofen OK. Warfarin Sodium 12/08/2010 Shakes, dizziness documented as of this encounter (statuses as of 01/08/2024) Medications Medication Sig Dispensed Refills Start Date End Date Status PEPTO-BISMOL 262 MG PO TABS 3-4 tbas as needed Active cetirizine (ZYRTEC) 10 MG TabletIndications :Chronic rhinitis [...] Nasal Solution (Astelin)Indicati ons:Schatzki's ring Administer 1 Maynard into nostril in the morning and 1 Maynard before bedtime. 90 mL 3 01/16/2023 Active Midodrine HCl 2.5 MG Oral Tablet (Proamatine) 1 Tablet. Active Celecoxib 200 MG Oral Capsule (CeleBREX) Take 1 Capsule by mouth in the morning. In the morning.. 14 Capsule 05/19/2023 Active Additional Information Patient not taking.Reported on 01/08/2024 oxyCODONE-Acetami nophen 5-325 MG Oral Tablet (Percocet) Take 1 Tablet by mouth every 4 hours as needed for Pain, Severe. 20 Tablet 05/19/2023 Discontinue d(Patient preference/ discontinua tion) documented as of this encounter (statuses as of 01/08/2024) Active Problems Problem Noted Date Diagnosed Date [...] as of this encounter (statuses as of 01/08/2024) Resolved Problems Problem Noted Date Diagnosed Date [...] as of this encounter (statuses as of 01/08/2024) Immunizations Name Administration Dates Next Due COVID-19 mRNA, LNP-s, No Pre serve, 2-Dose Series ([employer]) 07/04/2020,06/13/2020 HEP A - Hepatitis A (Adult [...] Sign Reading Time Taken Comments Blood Pressure 104/82 01/08/2024 12:01 PM EDT Pulse 74 01/08/2024 12:01 PM EDT Temperature 36.3 °C (97.3 °F) 01/08/2024 12:01 PM E DT Respiratory Rate 16 01/08/2024 12:01 PM EDT Oxygen Saturation 98% 01/08/2024 12:01 PM EDT Inhaled Oxygen Concentration - - Weight 93.3 kg (205 lb 9.6 oz) 01/08/2024 12:01 PM EDT Height 182.9 cm (6') 01/08/2024 12:01 PM EDT Body Mass Index 27.88 01/08/2024 12:01 PM EDT documented in this encounter Progress Notes * Desean Raymond MD - 01/08/2024 12:40 PM EDT Subjective: Zackary Zhou is a 58 year old male. Chief Complaint Patient presents with Acute Patient is here today due to headaches that are daily. Patient states he had a concussion 9 mo ago and since he has been having headaches in the left orthodoxy where he was hit. Patient states the headaches move in behind his left eye and did have his eyes checked by an eye doctor and was told his eyes look good. Patient is taking medication and states within a couple hours is wears off. Patient states the left side of face gets tender to touch, states always on left side. HPI: 58-year-old seen today because of daily headaches. He suffered a concussion February 05, 2023 while at work. He struck his left temporal area against a metal cage that hangs in an airplane. He works [employer]. He was evaluated after that trauma and diagnosed with concussion a few months later he was released. He has continued to have intermittent pain well localized to the left temporal area which is the area that he struck on the original trauma. This can wake him up from sleep in occurin reoccur through the day. He has been using “goody's" on a daily basis up to 4 or 5. This medicine contains acetaminophen 325 mg and aspirin 500 mg in caffeine 65 mg per packet. He has found thisto be helpful but it only gives him temporary relief. He is having some difficulty with close vision but I am not sure that it has any association with his headache. He does not have associated nausea. 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 He really does not want to start amitriptyline has he has had a bad personal experience with the family member overdosing on amitriptyline. Patient Active Problem List Diagnosis OVERWEIGHT, BMI= [...] Current Outpatient Medications Medication Sig Dispense Refill PEPTO-BISMOL 262 MG PO TABS 3-4 tbas as needed cetirizine (ZYRTEC) 10 MG Tablet Take 1 Tab by mouth at bedtime as needed for Rhinitis. 30 Tab 11 Fluticasone Propionate 50 MCG/ACT Nasal Suspension (Flonase) [...] 0.1 % Nasal Solution (Astelin) Administer 1 Maynard into nostril in the morning and 1 Maynard before bedtime. 90 mL 3 Midodrine HCl 2.5 MG Oral Tablet (Proamatine) 1 Tablet. valACYclovir HCl 500 MG Oral Tablet (Valtrex) TAKE 1 TABLET BY MOUTH 3 TIMES A DAY FOR 3 DAYS FOR RECURRENT EPISODE 27 Tablet 1 Celecoxib 200 MG Oral Capsule (CeleBREX) Take 1 Capsule by mouth in the morning. In the morning.. (Patient not taking: Reported on 01/08/2024) 14 Capsule 0 No current facility-administered medications for this visit. Review of patient's allergies indicates: Allergen Reactions Corticosteroids Psych complications Injections are ok, unable to tolerate oral Indomethacin Can tolerate Ibuprofen OK. Warfarin Sodium Shakes, dizziness Objective: BP 104/82 | Pulse 74 | Temp 36.3 °C (97.3 °F) (Tympanic) | Resp 16 | Ht 1.829 m (6') | Wt 93.3 kg(205 lb 9.6 oz) | SpO2 98% | BMI 27.88 kg/m² | BSA 2.18 m² Physical Exam: CONST: alert, pleasant, no acute distress HEAD: normocephalic, atraumatic NECK: supple, soft, no adenopathy EARS: canals normal, TMs normal Eyes - PERRLA, EOM'I OROPHARYNX: clear, no [...] SKIN: no rash or significant lesions ASSESSMENT/PLAN: Need for prophylactic vaccination and inoculation against influenza (Primary) - INFLUENZA VAC, TRIVALENT, (IIV3), PF, 0.5 ML (FLUZONE) Special screening for malignant neoplasms, colon Recurrent headaches. History would certainly indicate that this is related to his prior trauma and resultant concussion. The fact that the headaches are worsening or bothersome. For that reason will get MRI without contrast of the brain. Also refer to [facility] headache clinic. He may be a reasonable candidate for a injection at the spot of discomfort. For now he will continue to use the multi formula good he has product up to 4 day. Could consider adding Topamax but I am going to hold off on that for now. Desean Raymond MD * Giuliana Martines LPN - 01/08/2024 11:56 AM EDT Pre-Administration Time Out Procedure Performed: Yes Patient Identified (Ask Name/Date of ): Yes Does the patient have a fever greater than 101 degrees today? No Patient allergic to latex? No Has the patient ever fainted after receiving an injection? No VFC Stock: No Immunization(s) verified: Yes, Immunization Name: Flu, VIS Sheet(s) given: Yes Verified Side and Site: Yes Verified Shot(s) with Parent(s)/Patient: Yes PRE - ADMINISTRATION DOCUMENTATION Are you experiencing any cold symptoms or fever? No Have you had Guillain-Alamosa Syndrome (an illness that causes paralysis) within the last 6 weeks? No Have you had the flu shot in the past? YES Have you ever had a reaction to the flu shot? No Giuliana Martines LPN, 01/08/2024 11:56 AM documented in this encounter Nursing Notes * Giuliana Martines LPN - 01/08/2024 12:04 PM EDT The patient has been properly identified by confirmation of name and date of . Chief Complaint Patient presents with Acute Patient is here today due to headaches that are daily. Patient states he had a concussion 9 mo ago and since he has been having headaches in the left orthodoxy where he was hit. Patient states the headaches move in behind his left eye and did have his eyes checked by an eye doctor and was told his eyes look good. Patient is taking medication and states within a couple hours is wears off. Patient states the left side of face gets tender to touch, states always on left side. documented in this encounter Plan of Treatment Upcoming Encounters Date Type Department Care Team (Late st Contact Info) Description 01/14/2024 2:30 PM EDT Imaging Radiology [address] [facility] [place] [id number] 01/22/2024 11:40 AM EDT Office Visit [facility] [address] [place] [address] Desean Raymond MD [address] [place] [address] 02/12/2024 9:00 AM EST Office Visit Neurology [facility] [address] [place] [address] Krystina Spain PA-C [address] [place] [id number] Scheduled Orders Name Type Priority Associated Diagnoses Orde r Schedule MRI BRAIN WITHOUT CONTRAST Medical Imaging Routine Post-concussion headache Expected: 01/09/2024, Expires: 02/08/2024 Scheduled Procedures Name Priority Associated Diagnoses Date/Ti me COLONOSCOPY FLEXIBLE PROXIMA L DIAGNOSTIC Recall Special screening for malignant neoplasms, colon Scheduled Referrals Name Type Priority Associated Diagnoses Orde r Schedule COLONOSCOPY, GI REFERRAL OP Referral Within 30 days (routine) Special screening for malignant neoplasms, colon Colon cancer screening Ordered: 01/08/2024 ADULT NEUROLOGY REFERRAL OP Referral Within 30 days (routine) Post-concussion headache Ordered: 01/08/2024 Health Maintenance Due Date Last Done Comments [...] this encounter Medical Devices Implanted Type Area Site Planner Device Identifier Shelf Expiration Date Model / Serial / Lot Ventralex St Hernia Patch Implanted:Qty: 1 on 10/25/2014 by Desean Hernandez MD at OR [facility] N/A: Abdomen [employer]NA[employer]IVE [employer] 03/30/2016 [id number] / / [id number] documented as of this encounter Visit Diagnoses Diagnosis Need for prophylactic vaccination and inoculation against influenza- Primary Need for pneumococcal vaccination Need for prophylactic vaccination against streptococcus pneumoniae (pneumococcus) Vaccine for viral hepatitis Need for prophylactic vaccination and inoculation against viral hepatitis Special screening for malignant neoplasms, colon Episodic tension-type headache, not intractable Episodic tension type headache Post-concussion headache Post-traumatic headache, unspecified Colon cancer screening Special screening for malignant neoplasms, colon documented [...] the patient have Health Care Power of Pathology Laboratory Technologist? No Care Teams Theology Professor Relationship Specialty Start Date End Date Desean Raymond MD [address] [place] [address] PCP - General Family Medicine 03/16/20 documented as of this encounter
[2024-07-04] MEDS: SODIUM CHLORIDE 0.9% 1,000 ML IV ONE (10:37)
[2024-07-04 10:52] LABS: Basophils # (auto) 0.11 K/uL (0.00-0.20); Basophils % (auto) 0.9 %; Eosinophils # (auto) 0.38 K/uL (0.00-0.50); Immature Granulocytes # (auto) 0.07 K/uL (0.01-0.20); Immature Granulocytes % (auto) 0.5 %; Lymphocytes # (auto) 1.39 K/uL (1.20-3.40); Lymphocytes % (auto) 10.8 %; Mean Corpuscular Hemoglobin 27.4 pg (25.0-34.0); Mean Corpuscular Hgb Conc 33.3 g/dL (32.0-36.0); Mean Corpuscular Volume 82.1 fL (80.0-100.0); Mean Platelet Volume 10.9 fL (9.4-12.4); Monocytes # (auto) 1.17 K/uL (0.11-0.59); Monocytes % (auto) 9.1 %; Neutrophils # (auto) 9.71 K/uL (1.40-6.50); Neutrophils % (auto) 75.7 %; Platelet Count 227 K/uL (130-400); RDW Coefficient of Variation 14.3 % (11.5-14.5); RDW Standard Deviation 41.4 fL (36.4-46.3); Red Blood Count 5.48 M/uL (4.70-6.10); White Blood Count 12.83 K/ul (4.8-10.8)
--- NOTE | 2024-07-04 11:01 | Emergency Department Note ---
Impression & Plan Seizure-like activity, Dehydration, Acute UTI (urinary tract infection), Tobacco abuse ED Provider Note ED Provider Note NAME: MIGUEL ANGEL PERRY AGE:59 SEX: Male : 1965 ARRIVES VIA: Private vehicle INFORMANT: Patient ED PROVIDER(s): Avani Van DO CHIEF COMPLAINT: Twitching, seizure-like activity HPI: This is a 59-year-old male presents emergency room due to concern for twitching and seizure-like activity. Patient states he has had episodes such as this for at least a year. He states they have been worse in the last 2 to 3 days. Patient states he did previously see neurology due to a history of injury and traumatic brain injury 2 years ago. He was started on medications for such. He states in March he underwent removal of a walnut sized polyp in his sinus and the symptoms he was having that were thought to be associated with his TBI resolved including headaches. He states the episodes last several seconds, typically involve his upper body, head, and arms. Occasionally they also involve his lower extremities. He states they are worse when he lays on his left side. He states they seem to be worse when he is sleeping with his significant other. Patient states only current medications are allopurinol and colchicine. He states he does have a significant history of gout. PAST MEDICAL HISTORY:See Below PAST SURGICAL HISTORY:See Below FAMILY HISTORY:See Below SOCIAL HISTORY:See Below HOME MEDICATIONS:See Below ALLERGIES:See Below VITALS:See Below PHYSICAL EXAMINATION: GENERAL: alert, well appearing, well nourished, no distress, non-toxic EYE EXAM: normal conjunctiva, PERRL and EOM's grossly intact OROPHARYNX: no exudate, no erythema, lips, buccal mucosa, and tongue normal and mucous membranes are dry NECK: supple, no nuchal rigidity, no adenopathy, non-tender LUNGS: Clear to auscultation. Normal chest wall mechanics, no w/r/r HEART: no murmurs, S1 normal and S2 normal ABDOMEN: abdomen soft, non-tender, normo-active bowel sounds, no masses, no rebound or guarding. BACK: Back is symmetrical on inspection and there is no deformity, no midline tenderness, no CVA tenderness. SKIN: no rashes, petechiae, orbruising UPPER EXTREMITIES: upper extremities are grossly normal. FROM, nml pulses b/l. Patient also notes pain in the right hand particularly at the fourth digit proximally in the area of the PIP on the palmar aspect. No obvious trauma, patient able to range the finger although notes some pain with full extension and full flexion. He states he also has pain in the distal tip of the finger. He denies any recent trauma. He states he did have a recent spasm of the hand 2 days ago associated with all the seizure-like activity. No obvious felon, no paronychia, mild edema noted at the proximal aspect of the fourth digit. No evidence of cyanosis. Patient noted to have fingernail abnormalities across all 10 digits. LOWER EXTREMITIES: No pitting edema. FROM, nml pulses b/l. NEURO EXAM: Normal sensorium, cranial nerves II-XII grossly intact, normal speech, no facial droop,nogross weakness of arms, no gross weakness of legs. Gross sensation intact. No ataxia. Intermittent jerking appearance of trunk, head, and upper extremities. No resting tremor. No apparent involvement of the lower extremities. Vital Signs: reviewed and remarkable Differential Diagnosis: Seizure, myoclonic jerk, dysrhythmia, IVAN, electrolyte abnormality, functional movement disorder, anxiety, tickborne illness, CVA, ICH, as well as others were considered MEDICAL DECISION MAKING: This is a 59-year-old male presents emergency department due to concern for worsening seizure-like activity that initially began a year ago per his report. Patient afebrile and hemodynamically stable. The seizure-like activity was witnessed at bedside. After significant bedside discussion and evaluation, labs drawn and sent, IV established, EKG performed at bedside interpreted by me and patient monitored on telemetry. He was sent for CT/CTA. Urine collected and sent additionally. UA abnormal and suggestive of possible evolving infection. Patient denies any recent urinary symptoms. He was covered with IV antibiotics as a precaution. Urine drug screen was negative. It is unclear if an evolving urine infection could have contributed to the recent increase in his seizure- like symptoms. I did review prior neurology reports. Patient's imaging here reassuring. Patient's other labs unremarkable. I discussed the case with on- call [facility] neurology via [place] text. They recommended additional MRI and EEG and restarting the patient's Topamax. All results were discussed with the bedside as were the recommendations by neurology. Case discussed with the hospitalist team for additional evaluation and management. Consultation(s): 1316: Discussed with Dr. Obinna Ruiz, [facility] neuro, via [place] Text. Recommends MRI and EEG and starting Topamax at 50 mg nightly. 1412: Discussed with Dr. Verde, [facility] hospitalist team, for additional evaluation and management. ER Treatment Provided: See below Diagnostics Interpreted By Me: -ECG: Normal sinus at 99, normal axis, normal intervals, no acute ST/T wave changes -Cardiac Monitoring: An order was placed for continuous cardiac monitoring. The monitor shows a rate of 94 with normal sinus rhythm. -Laboratory studies: As stated above and show below. -Imaging studies: ct head: no ich xr right hand: No fracture, no foreign body Triage Nursing Note Reviewed Prior/Outside Records Reviewed -prior neurology office visit from January 2024 reviewed Past Med/Surg History Problem List (Updated 07/04/24 @ 18:01 by Avani Van DO) Tobacco abuse (Acute) Acute UTI (urinary tract infection) (Acute) Dehydration (Acute) Seizure-like activity (Acute) Orthostasis Left eye pain Acute right-sided weakness (Acute) Headache (Acute) Dizziness (Acute) Headache Esophageal dysphagia Schatzki's ring Gout (Chronic) Medical History Ulnar neuropathy HSV-2 infection BPH (benign prostatic hyperplasia) Esophageal dysphagia Schatzki's ring History of Clostridioides difficile infection Chronic rhinitis Gout Surgical History History of elbow surgery S/P left knee arthroscopy H/O nasal septoplasty History of bilateral knee arthroplasty H/O umbilical hernia repair History of shoulder surgery Family History Mother Cancer Social History Smoking Status: Current every day smoker Tobacco Type: Cigarettes Hx Alcohol Use: No Hx Substance Use: No Preferred Language: Luxembourgish Communication Ability: Effective Pediatric Surgeon Required: No Current Living Situation: Alone Other Information That Helps Us Care for You: No Feels Safe at Home: Yes Safety Concerns: Feels Safe At This Time Assistive Devices: Glasses Allergies Allergies Allergy/AdvReac Type Severity Reaction Status Date / Time indomethacin Allergy Severe INDOCIN Verified 07/04/24 12:29 THROAT SWELLING SEVERE REACTION prednisone Allergy Mild "CORTICOSTEROID Unverified 07/04/24 12:29 PSYCHOSIS" warfarin AdvReac Unknown DIFFICULTY Verified 07/04/24 12:29 REGULATING LEVELS Home Meds Home Medications Medication Instructions Recorded Confirmed allopurinol 300 mg tablet 300 mg PO DAILY 08/21/22 07/04/24 colchicine 0.6 mg tablet 0.6 mg PO BID 08/21/22 07/04/24 acetaminophen 500 mg tablet 500 mg PO Q6H PRN Headache 07/04/24 07/04/24 Results & Data (ED) Vital Signs Vital Signs - 24 hr 07/04/24 09:59 07/04/24 10:21 07/04/24 13:40 Temperature 36.5 C Temperature Source Skin Pulse Rate 101 H 96 H Pulse Rate [Apical] 76 Pulse Strength [Apical] Normal Respiratory Rate 20 19 Respiratory Effort / Characteristics Non-Labored Spontaneous Non-Labored Spontaneous Respiratory Depth Normal Normal Respiratory Pattern Regular Regular Blood Pressure 130/84 Blood Pressure [Left Arm] 145/89 H Blood Pressure Mean 99 Blood Pressure Mean [Left Arm] 107 Pulse Oximetry 94 98 Oxygen Delivery Method Room Air Room Air Sepsis Recent Fever Within 48 Hours No Sepsis New/Unexplained Change in Mental Status N/A Sepsis Action Taken by Nursing No Action Required Laboratory Data 07/04/24 10:35 07/04/24 10:35 Lab Results 07/04/24 07/04/24 Range/Units 10:35 10:40 WBC 12.83 H (4.8-10.8) K/ul RBC 5.48 (4.70-6.10) M/uL Hgb 15.0 (14.0-18.0) g/dl Hct 45.0 (42.0-52.0) % MCV 82.1 (80.0-100.0) fL MCH 27.4 (25.0-34.0) pg MCHC 33.3 (32.0-36.0) g/dL RDW Std Deviation 41.4 (36.4-46.3) fL RDW Coeff of Humberto 14.3 (11.5-14.5) % Plt Count 227 (130-400) K/uL MPV 10.9 (9.4-12.4) fL Immature Gran % (Auto) 0.5 % Neut % (Auto) 75.7 % Lymph % (Auto) 10.8 % [place] % (Auto) 9.1 % Eos % (Auto) 3.0 % Baso % (Auto) 0.9 % Neut # (Auto) 9.71 H (1.40-6.50) K/uL Lymph # (Auto) 1.39 (1.20-3.40) K/uL [place] # (Auto) 1.17 H (0.11-0.59) K/uL Eos # (Auto) 0.38 (0.00-0.50) K/uL Baso # (Auto) 0.11 (0.00-0.20) K/uL Immature Gran # (Auto) 0.07 (0.01-0.20) K/uL PT 10.7 (9.0-12.0) Seconds INR 1.0 (0.9-1.1) Sodium 136 (136-145) mmol/L Potassium 3.6 (3.5-5.1) mmol/L Chloride 100 (98-107) mmol/L Carbon Dioxide 27 (21-32) mmol/L Anion Gap 9 (3-11) BUN 14 (6-23) mg/dl Creatinine 1.03 (0.6-1.4) mg/dl Est Cr Clr Drug Dosing 85.4 ml/min eGFR 84.20 BUN/Creatinine Ratio 13.6 (10-20) Glucose 185 H (70-99(Fasting)) mg/dl Uric Acid 8.2 H (2.6-7.2) mg/dl Calcium 9.5 (8.6-10.3) mg/dl Magnesium 1.8 (1.7-2.4) mg/dl Total Bilirubin 0.6 (0.2-1.0) mg/dl AST 14 (13-39) U/L ALT 24 (7-52) U/L Alkaline Phosphatase 63 (34-104) U/L Troponin I High Sens 3.6 (0-20) pg/ml Total Protein 7.4 (6.0-8.3) gm/dl Albumin 4.3 (3.4-5.0) gm/dl Globulin 3.1 (2.5-4.0) gm/dl Albumin/Globulin Ratio 1.4 (0.9-2) Lipase 25 (11-82) U/L Vitamin B12 402 (180-914) pg/ml Folate 17.82 (>5.38) ng/ml Procalcitonin 0.07 (0-0.5) ng/ml TSH 3.713 (0.300-4.500) uIu/ml Ethyl Alcohol mg/dL < 10.0 (<10.0) mg/dl Adenovirus (PCR) Not Detected (NotDetected) Anaplasma Smear See Comment Babesia Smear See Comment B. pertussis DNA (PCR) Not Detected (NotDetected) B.parapertussis DNA PCR Not Detected (NotDetected) Lyme Disease Screen Equivocal H (Negative) Lyme Tier 2 IgG Confirm Negative (Negative) Lyme Tier 2 IgM Confirm Negative (Negative) C. pneumoniae DNA (PCR) Not Detected (NotDetected) Coronavirus OC43 (PCR) Not Detected (NotDetected) Coronavirus HKU1 (PCR) Not Detected (NotDetected) Coronavirus 229E (PCR) Not Detected (NotDetected) SARS-CoV-2 (PCR) Not Detected (NotDetected) Coronavirus NL63 (PCR) Not Detected (NotDetected) Monoscreen Negative (Negative) Human Metapneumovir PCR Not Detected (NotDetected) Influenza Type A (PCR) Not Detected (NotDetected) Influenza Type B (PCR) Not Detected (NotDetected) M. pneumoniae (PCR) Not Detected (NotDetected) Parainfluenza 1 (PCR) Not Detected (NotDetected) Parainfluenza 2 (PCR) Not Detected (NotDetected) Parainfluenza 3 (PCR) Not Detected (NotDetected) Parainfluenza 4 (PCR) Not Detected (NotDetected) RSV (PCR) Not Detected (NotDetected) Entero/Rhino (PCR) Not Detected (NotDetected) Administered Medications Discontinued Medications Gadobutrol (Gadobutrol 30ml Vial) 9 ml IV ONCE ONE Stop: 07/04/24 16:54 Last Admin: 07/04/24 16:54 Dose: 9 ml Documented By: AN Sodium Chloride (Nss) 1,000 mls @ 999 mls/hr IV .Q1H1M ONE Stop: 07/04/24 11:18 Last Infusion: 07/04/24 11:49 Dose: Infused Documented By: Admin: 07/04/24 10:37 Dose: 999 mls/hr Documented By: MILO Ceftriaxone Sodium (Rocephin) 2,000 mg in 50 mls @ 100 mls/hr IV NOW STA Stop: 07/04/24 12:33 Last Infusion: 07/04/24 13:08 Dose: Infused Documented By: Admin: 07/04/24 12:34 Dose: 100 mls/hr Documented By: ROSALIA Ioversol (Optiray 320 125ml) 119 ml IV ONCE ONE Stop: 07/04/24 11:42 Last Admin: 07/04/24 11:41 Dose: 119 ml Documented By: SONYA Imaging Data Radiologist's Impression: Head CTA 07/04/24 10:18 CT angio head w con, CT angio neck with con, CT head/brain wo con CLINICAL HISTORY: 59 years-old Male with gutierrez, seizure like activity, RUE weakness. Seizure-like activity COMPARISON STUDY: Brain MRI 08/21/2022 TECHNIQUE: Unenhanced axial CT scan of the brain is performed. Subsequently, following the IV administration of 119 cc of Optiray, CT angiogram of the head and neck was performed from the aortic arch to the skull apex. Images are reviewed in the axial, sagittal, and coronal planes. 3-D MIPS images are created and assessed. IV contrast was administered without complication. All measurements were obtained according to NASCET criteria. A dose lowering technique was utilized adhering to the principles of ALARA. CT DOSE: 1131.04 mGy.cm FINDINGS: CT BRAIN: There is no acute intracranial hemorrhage, midline shift, hydrocephalus, intracranial mass, territorial ischemia or abnormal extra-axial collections. No abnormal intra-axial or extra-axial enhancement. Mastoid air cells and middle ear cavities are clear. No calvarial fracture. Minimal polypoid mucosal thickening of the maxillary sinuses.. CT ANGIOGRAM OF THE HEAD AND NECK: Three-vessel morphology of the thoracic aortic arch. There is patency of the innominate and image subclavian arteries. The common and internal carotid arteries are widely patent. The bilateral anterior and middle cerebral arteries are also patent. Dominant right vertebral artery is widely patent. The left vertebral artery is developmentally diminutive and demonstrates areas of high- grade stenosis within the distal V2 segment with distal reconstitution of flow within the V3 and V4 segments. The Dural sinuses appear patent. Lung apices are clear. No pneumothorax. Unremarkable soft tissues. Degenerative changes of the spine. IMPRESSION: 1. No acute intracranial abnormality. 2. Unremarkable CTA of the head. 3. The developmentally diminutive left vertebral artery demonstrates age indeterminate areas of high-grade stenosis within the distal V2 segment. ACT 112: Negative or not required by law. The above report was generated using voice recognition software. It may contain grammatical, syntax or spelling errors. Electronically signed by: Aldo Dangelo M.D. 07/04/2024 12:05 PM Neck CTA 07/04/24 10:18 CT angio head w con, CT angio neck with con, CT head/brain wo con CLINICAL HISTORY: 59 years-old Male with gutierrez, seizure like activity, RUE weakness. Seizure-like activity COMPARISON STUDY: Brain MRI 08/21/2022 TECHNIQUE: Unenhanced axial CT scan of the brain is performed. Subsequently, following the IV administration of 119 cc of Optiray, CT angiogram of the head and neck was performed from the aortic arch to the skull apex. Images are reviewed in the axial, sagittal, and coronal planes. 3-D MIPS images are created and assessed. IV contrast was administered without complication. All measurements were obtained according to NASCET criteria. A dose lowering technique was utilized adhering to the principles of ALARA. CT DOSE: 1131.04 mGy.cm FINDINGS: CT BRAIN: There is no acute intracranial hemorrhage, midline shift, hydrocephalus, intracranial mass, territorial ischemia or abnormal extra-axial collections. No abnormal intra-axial or extra-axial enhancement. Mastoid air cells and middle ear cavities are clear. No calvarial fracture. Minimal polypoid mucosal thickening of the maxillary sinuses.. CT ANGIOGRAM OF THE HEAD AND NECK: Three-vessel morphology of the thoracic aortic arch. There is patency of the innominate and image subclavian arteries. The common and internal carotid arteries are widely patent. The bilateral anterior and middle cerebral arteries are also patent. Dominant right vertebral artery is widely patent. The left vertebral artery is developmentally diminutive and demonstrates areas of high- grade stenosis within the distal V2 segment with distal reconstitution of flow within the V3 and V4 segments. The Dural sinuses appear patent. Lung apices are clear. No pneumothorax. Unremarkable soft tissues. Degenerative changes of the spine. IMPRESSION: 1. No acute intracranial abnormality. 2. Unremarkable CTA of the head. 3. The developmentally diminutive left vertebral artery demonstrates age indeterminate areas of high-grade stenosis within the distal V2 segment. ACT 112: Negative or not required by law. The above report was generated using voice recognition software. It may contain grammatical, syntax or spelling errors. Electronically signed by: Aldo Dangelo M.D. 07/04/2024 12:[address] 07/04/24 10:19 CT angio head w con, CT angio neck with con, CT head/brain wo con CLINICAL HISTORY: 59 years-old Male with gutierrez, seizure like activity, RUE weakness. Seizure-like activity COMPARISON STUDY: Brain MRI 08/21/2022 TECHNIQUE: Unenhanced axial CT scan of the brain is performed. Subsequently, following the IV administration of 119 cc of Optiray, CT angiogram of the head and neck was performed from the aortic arch to the skull apex. Images are reviewed in the axial, sagittal, and coronal planes. 3-D MIPS images are created and assessed. IV contrast was administered without complication. All measurements were obtained according to NASCET criteria. A dose lowering technique was utilized adhering to the principles of ALARA. CT DOSE: 1131.04 mGy.cm FINDINGS: CT BRAIN: There is no acute intracranial hemorrhage, midline shift, hydrocephalus, intracranial mass, territorial ischemia or abnormal extra-axial collections. No abnormal intra-axial or extra-axial enhancement. Mastoid air cells and middle ear cavities are clear. No calvarial fracture. Minimal polypoid mucosal thickening of the maxillary sinuses.. CT ANGIOGRAM OF THE HEAD AND NECK: Three-vessel morphology of the thoracic aortic arch. There is patency of the innominate and image subclavian arteries. The common and internal carotid arteries are widely patent. The bilateral anterior and middle cerebral arteries are also patent. Dominant right vertebral artery is widely patent. The left vertebral artery is developmentally diminutive and demonstrates areas of high- grade stenosis within the distal V2 segment with distal reconstitution of flow within the V3 and V4 segments. The Dural sinuses appear patent. Lung apices are clear. No pneumothorax. Unremarkable soft tissues. Degenerative changes of the spine. IMPRESSION: 1. No acute intracranial abnormality. 2. Unremarkable CTA of the head. 3. The developmentally diminutive left vertebral artery demonstrates age indeterminate areas of high-grade stenosis within the distal V2 segment. ACT 112: Negative or not required by law. The above report was generated using voice recognition software. It may contain grammatical, syntax or spelling errors. Electronically signed by: Aldo Dangelo M.D. 07/04/2024 12:05 PM Hand X-Ray 07/04/24 12:27 XR hand RT min 3V routine HISTORY: 59 years-old Male 4th finger pain, swelling acute right hand pain COMPARISON: None TECHNIQUE: 3 views of the right hand FINDINGS: Multifocal osteoarthritis, severe within the triscaphe and first carpometacarpal joints with adjacent chronic appearing corticated ossifications/fragmented osteophytes. Mild soft tissue swelling of the second through fourth fingers. No acute fracture, dislocation, osseous erosion or opaque foreign body. IMPRESSION: 1. Mild soft tissue swelling without acute osseous abnormality. 2. 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 ACT 112: Negative or not required by law. The above report was generated using voice recognition software. It may contain grammatical, syntax or spelling errors. Electronically signed by: Aldo Dangelo M.D. 07/04/2024 12:57 PM Discharge Plan Visit Data Chief Complaint: Seizure Stated Complaint: SEIZURE LIKE SYMPTOMS/HEADACHES ED Provider: Avani Van Discharge Problem: Seizure-like activity, Dehydration, Acute UTI (urinary tract infection), Tobacco abuse Patient Disposition: Admitted As Inpatient Discharge Instructions Interventions: ED Discharge Assessment Last Done: 07/04/24 16:19
[2024-07-04 11:15] LABS: Albumin Level 4.3 gm/dl (3.4-5.0); Bilirubin,Total 0.6 mg/dl (0.2-1.0); Calcium 9.5 mg/dl (8.6-10.3); Magnesium 1.8 mg/dl (1.7-2.4); Potassium 3.6 mmol/L (3.5-5.1)
[2024-07-04 11:16] LABS: Procalcitonin 0.07 ng/ml (0-0.5)
[2024-07-04 11:17] LABS: Prothrombin Time 10.7 Seconds (9.0-12.0)
[2024-07-04 11:21] LABS: Albumin Globulin Ratio 1.4 (0.9-2); BUN Creatinine Ratio 13.6 (10-20); Creatinine Clr Calc Pharmacy 85.4 ml/min; Globulin 3.1 gm/dl (2.5-4.0); Total Protein 7.4 gm/dl (6.0-8.3); Uric Acid 8.2 mg/dl (2.6-7.2)
[2024-07-04 11:26] LABS: Troponin I High Sensitivity 3.6 pg/ml (0-20)
[2024-07-04 11:27] LABS: Appearance Urine Clear (Clear); Bacteria Urine Automated None Seen (None Seen); Bilirubin Urine Negative (Negative); Blood Urine 2+ (Negative); Cast Urine Automated 0-2 /lpf (0-2); Color Urine Yellow; Epithelial Cell Urine Auto 0-2 /hpf (0-2); Glucose Urine UA Negative (Negative); Ketones Urine Negative (Negative); Leukocyte Esterase Urine 2+ (Negative); Nitrite Urine Negative (Negative); Protein Urine Negative (Negative); Specific Gravity Urine 1.007 (1.000-1.030); Urobilinogen Urine Negative (Negative); WBC Urine Automated 21-50 /hpf (0-5)
[2024-07-04 11:35] LABS: Thyroid Stimulating Hormone 3.713 uIu/ml (0.300-4.500)
[2024-07-04 11:41] LABS: Lyme Screen Rflx Confirmation Equivocal (Negative)
[2024-07-04] MEDS: OPTIRAY 320 125ml IV ONE (11:41)
[2024-07-04 11:48] LABS: Adenovirus PCR Not Detected (NotDetected); Bordetella parapertussis PCR Not Detected (NotDetected); Bordetella pertussis PCR Not Detected (NotDetected); Chlamydia pneumoniae PCR Not Detected (NotDetected); Coronavirus 229E PCR Not Detected (NotDetected); Coronavirus CoV-2 (COVID19)PCR Not Detected (NotDetected); Coronavirus HKU1 PCR Not Detected (NotDetected); Coronavirus NL63 PCR Not Detected (NotDetected); Coronavirus OC43PCR Not Detected (NotDetected); Human Metapneumovirus PCR Not Detected (NotDetected); Influenza A PCR Not Detected (NotDetected); Influenza B PCR Not Detected (NotDetected); Mycoplasma pneumoniae PCR Not Detected (NotDetected); Parainfluenza Virus 1 PCR Not Detected (NotDetected); Parainfluenza Virus 2 PCR Not Detected (NotDetected); Parainfluenza Virus 3 PCR Not Detected (NotDetected); Parainfluenza Virus 4 PCR Not Detected (NotDetected); Respiratory Syncytial VirusPCR Not Detected (NotDetected); Rhinovirus/Enterovirus PCR Not Detected (NotDetected)
[2024-07-04 12:03] LABS: Folate (Folic Acid),Ser orPlas 17.82 ng/ml (>5.38)
[2024-07-04 12:03] LABS: Amphetamines+Metham, Urine Neg (Neg); Barbiturates, Urine Neg (Neg); Benzodiazepine, Urine Neg (Neg); Cocaine, Urine Neg (Neg); Fentanyl, Urine Neg (Neg); MDMA (Ecstacy), Urine Neg (Neg); Marijuana, Urine Neg (Neg); Methadone, Urine Neg (Neg); Opiate, Urine Neg (Neg); Phencyclidine, Urine Neg (Neg)
--- NOTE | 2024-07-04 12:08 | CT Scan Report ---
CT angio head w con, CT angio neck with con, CT head/brain wo con CLINICAL HISTORY: 59 years-old Male with gutierrez, seizure like activity, RUE weakness. Seizure-like act ivity COMPARISON STUDY: Brain MRI 08/21/2022 TECHNIQUE: Unenhanced axial CT scan of the brain is performed. Subsequently, following the IV adminis tration of 119 cc of Optiray, CT angiogram of the head and neck was performed from the aortic arch to the skull apex. Images are reviewed in the axial, sagittal, and coronal planes. 3-D MIPS images are created and assessed. IV contrast was administered without complication. All measurements were obtain ed according to NASCET criteria. A dose lowering technique was utilized adhering to the principles of ALARA. CT DOSE: 1131.04 mGy.cm FINDINGS: CT BRAIN: There is no acute intracranial hemorrhage, midline shift, hydrocephalus, intracranial mass, territori al ischemia or abnormal extra-axial collections. No abnormal intra-axial or extra-axial enhancement. Mastoid air cells and middle ear cavities are clear. No calvarial fracture. Minimal polypoid mucosal thickening of the maxillary sinuses.. CT ANGIOGRAM OF THE HEAD AND NECK: Three-vessel morphology of the thoracic aortic arch. There is patency of the innominate and image sub clavian arteries. The common and internal carotid arteries are widely patent. The bilateral anterior and middle cerebral arteries are also patent. Dominant right vertebral artery is widely patent. The l eft vertebral artery is developmentally diminutive and demonstrates areas of high-grade stenosis with in the distal V2 segment with distal reconstitution of flow within the V3 and V4 segments. The Dural sinuses appear patent. Lung apices are clear. No pneumothorax. Unremarkable soft tissues. Degenerative changes of the spine. IMPRESSION: 1. No acute intracranial abnormality. 2. Unremarkable CTA of the head. 3. The developmentally diminutive left vertebral artery demonstrates age indeterminate areas of high- grade stenosis within the distal V2 segment. ACT 112: Negative or not required by law. The above report was generated using voice recognition software. It may contain grammatical, syntax o r spelling errors. Electronically signed by: Aldo Dangelo M.D. 07/04/2024 12:05 PM
[2024-07-04 12:15] LABS: Lyme Ab IgG 2nd Tier Confirm Negative (Negative)
[2024-07-04 12:16] LABS: Lyme Ab IgM 2nd Tier Confirm Negative (Negative)
[2024-07-04] MEDS: cefTRIAXone SODIUM 2,000 MG/50 ML BAG IV STA (12:34)
--- NOTE | 2024-07-04 12:59 | XRay Report ---
XR hand RT min 3V routine HISTORY: 59 years-old Male 4th finger pain, swelling acute right hand pain COMPARISON: None TECHNIQUE: 3 views of the right hand FINDINGS: Multifocal osteoarthritis, severe within the triscaphe and first carpometacarpal joints with adjacent chronic appearing corticated ossifications/fragmented osteophytes. Mild soft tissue swelling of the second through fourth fingers. No acute fracture, dislocation, osseous erosion or opaque foreign body . IMPRESSION: 1. Mild soft tissue swelling without acute osseous abnormality. 2. 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 ACT 112: Negative or not required by law. The above report was generated using voice recognition software. It may contain grammatical, syntax o r spelling errors. Electronically signed by: Aldo Dangelo M.D. 07/04/2024 12:57 PM
--- NOTE | 2024-07-04 13:29 | Electrocardiogram Report ---
Test Reason : Blood Pressure : */* mmHG Vent. Rate : 99 BPM Atrial Rate : 99 BPM P-R Int : 188 ms QRS Dur : 84 ms QT Int : 334 ms P-R-T Axes : 42 -29 15 degrees QTcB Int : 428 ms Normal sinus rhythm Normal ECG When compared with ECG of 21-Aug-2022 07:43, Vent. rate has increased by 33 bpm Confirmed by Angel Blankenship ([id number]) on 07/04/2024 1:29:05 PM Referred By: REFERRED SELF Confirmed By: Angel Blankenship
--- NOTE | 2024-07-04 14:17 | History & Physical Report ---
Date of Service July 04, 2024 Assessment & Plan (1) Seizure-like activity: Plan Pt is a 59yoM with PMHx significant for gout, GERD, Schatzki's ring s/p dilation, BPH, hx of chronic headaches/migraines previously on topamax, recurrent concussions, recent nasal polyp removal who presents for evaluation of abnormal head and extremity jerks that have been increasing in frequency. Functional Movement Disorder Possible Myoclonic jerks Notes he has been having uncontrolled head and extremity movements for the past year, increasing frequency over last 2 days Denies recent tick bites, lyme screen EQUIVOCAL with negative IgM and IgG respiratory panel negative r/o seizure, EEG pending R/o stroke, Head CT unremarkable but does note "The developmentally diminutive left vertebral artery demonstrates age indeterminate areas of high-grade steno sis within the distal V2 segment" Head and neck CTA also noting the same as above Brain MRI pending Vit b12 normal, b6 level ordered in the ED pending Neurology consulted, appreciate further recs. Of note, Neurology inpatient consult in [facility] from 2022 noted concern for early parkinsonism. -brain MRI -EEG -restart home topamax at 50mg qhs ? possible restless leg component? Continue to monitor Stenosis L vertebral artery Head CT, head and neck CTA noting "The developmentally diminutive left vertebral artery demonstrates age indeterminate areas of high-grade stenosis within the distal V2 segment" AM lipid panel Consider Vascular or neurosurgery followup Consider starting on aspirin and statin (pt notes he was told to discontinue all his medications by his specialists) Possible UTI Pt with leukocytosis UA questionable for infection Urine cx pending Empiric Rocephin, follow cx and adjust abx as needed R ring Finger Swelling and erythema Hx of Gout Pt states that his finger started swelling around the same time he had the increase in his movements XRAY noting mild tissue swelling, no acute fracture Uric acid elevated at 8.2 Continue home uric acid and colchicine, pt with allergy to prednisone and indomethacin Hyperglycemia Glucose level of 185 AM [id number] ISS, discontinue if pt not diabetic Diet: DMII DVT prophylaxis: heparin SQ CODE STATUS: discussion with pt that he would like to be DNR/DNI Dispo: admit to med/surg with tele History of Present Illness Chief Complaint: abnormal jerking Primary Care Provider: Desean Raymond MD Pt is a 59yoM with PMHx significant for gout, GERD, Schatzki's ring s/p dilation, BPH, hx of chronic headaches/migraines previously on topamax, recurrent concussions, recent nasal polyp removal who presents for evaluation of abnormal head and extremity jerks that have been increasing in frequency. History obtained from pt and at bedside. They note that he has been having the occasional head/neck jerks and extremity jerking, (lower extremity> upper extremity) for the past year but it has been increasing in frequency over the past 2-3 days. He notes that it usually occurs when he is falling asleep, sometimes wakes him up from sleep. States he knows when it is about to happen, it starts with tensing in his abdominal area before progressing. Denies associated tongue biting or urinary incontinence. Denies associated loss of consciousness. No recent tick bites. Notes he had nasal surgery in March and since then was told to discontinue all his medications. States that he recently resumed his home allopurinol and cochicine. Notes a frequent left sided yarsani headache. Denies N/V. Notes photobia and phonophobia at times. 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 Allergies Allergy/AdvReac Type Severity Reaction Status Date / Time indomethacin Allergy Severe INDOCIN Verified 07/04/24 12:29 THROAT SWELLING SEVERE REACTION prednisone Allergy Mild "CORTICOSTEROID Unverified 07/04/24 12:29 PSYCHOSIS" warfarin AdvReac Unknown DIFFICULTY Verified 07/04/24 12:29 REGULATING LEVELS Home Medications Medication Instructions Recorded Confirmed Type allopurinol 300 mg tablet 300 mg PO DAILY 08/21/22 07/04/24 History colchicine 0.6 mg tablet 0.6 mg PO BID 08/21/22 07/04/24 History acetaminophen 500 mg tablet 500 mg PO Q6H PRN Headache 07/04/24 07/04/24 History Past Med/Surg History Problem List (Updated 07/04/24 @ 11:01 by Avani Van, ) Seizure-like activity (Acute) Orthostasis Left eye pain Acute right-sided weakness (Acute) Headache (Acute) Dizziness (Acute) Headache Esophageal dysphagia Schatzki's ring Gout (Chronic) Medical History Ulnar neuropathy HSV-2 infection BPH (benign prostatic hyperplasia) Esophageal dysphagia Schatzki's ring History of Clostridioides difficile infection Chronic rhinitis Gout Surgical History History of elbow surgery S/P left knee arthroscopy H/O nasal septoplasty History of bilateral knee arthroplasty H/O umbilical hernia repair History of shoulder surgery Family History Mother Cancer Social History Smoking Status: Current every day smoker Tobacco Type: Cigarettes Hx Alcohol Use: No Preferred Language: [place] Feels Safe at Home: Yes Review of Systems Review of Systems: All systems reviewed & are unremarkable except as noted in Subjective Physical Exam Physical Exam: General: Alert, oriented. occasional head and lower extremity jerks Skin: No noted rashes or bruises Psych: Appropriate mood and affect Neuro: No gross deficits HEENT: Alert, oriented. occasional head and lower extremity jerks. Otherwise grossly unremarkable CV: RRR Resp: Breath sounds clear bilaterally, no increased effort of breathing Abdomen:Soft, nontender Extremities: No edema in lower extremities bilaterally. Results & Data Results & Data Vital Signs (Past 12 Hours) Vital Signs Temp Pulse Pulse Resp BP BP Pulse Ox 07/04/24 13:40 76 19 145/89 H 98 07/04/24 10:21 96 H 07/04/24 09:59 36.5 C 101 H 20 130/84 94 O2 Del Method 07/04/24 13:40 Room Air 07/04/24 10:21 07/04/24 09:59 Room Air Diagnostic Findings Head CTA 07/04/24 10:18 CT angio head w con, CT angio neck with con, CT head/brain wo con CLINICAL HISTORY: 59 years-old Male with gutierrez, seizure like activity, RUE weakness. Seizure-like activity COMPARISON STUDY: Brain MRI 08/21/2022 TECHNIQUE: Unenhanced axial CT scan of the brain is performed. Subsequently, following the IV administration of 119 cc of Optiray, CT angiogram of the head and neck was performed from the aortic arch to the skull apex. Images are reviewed in the axial, sagittal, and coronal planes. 3-D MIPS images are created and assessed. IV contrast was administered without complication. All measurements were obtained according to NASCET criteria. A dose lowering technique was utilized adhering to the principles of ALARA. CT DOSE: 1131.04 mGy.cm FINDINGS: CT BRAIN: There is no acute intracranial hemorrhage, midline shift, hydrocephalus, intracranial mass, territorial ischemia or abnormal extra-axial collections. No abnormal intra-axial or extra-axial enhancement. Mastoid air cells and middle ear cavities are clear. No calvarial fracture. Minimal polypoid mucosal thickening of the maxillary sinuses.. CT ANGIOGRAM OF THE HEAD AND NECK: Three-vessel morphology of the thoracic aortic arch. There is patency of the innominate and image subclavian arteries. The common and internal carotid arteries are widely patent. The bilateral anterior and middle cerebral arteries are also patent. Dominant right vertebral artery is widely patent. The left vertebral artery is developmentally diminutive and demonstrates areas of high- grade stenosis within the distal V2 segment with distal reconstitution of flow within the V3 and V4 segments. The Dural sinuses appear patent. Lung apices are clear. No pneumothorax. Unremarkable soft tissues. Degenerative changes of the spine. IMPRESSION: 1. No acute intracranial abnormality. 2. Unremarkable CTA of the head. 3. The developmentally diminutive left vertebral artery demonstrates age indeterminate areas of high-grade stenosis within the distal V2 segment. ACT 112: Negative or not required by law. The above report was generated using voice recognition software. It may contain grammatical, syntax or spelling errors. Electronically signed by: Aldo Dangelo M.D. 07/04/2024 12:05 PM Neck CTA 07/04/24 10:18 CT angio head w con, CT angio neck with con, CT head/brain wo con CLINICAL HISTORY: 59 years-old Male with gutierrez, seizure like activity, RUE weakness. Seizure-like activity COMPARISON STUDY: Brain MRI 08/21/2022 TECHNIQUE: Unenhanced axial CT scan of the brain is performed. Subsequently, following the IV administration of 119 cc of Optiray, CT angiogram of the head and neck was performed from the aortic arch to the skull apex. Images are reviewed in the axial, sagittal, and coronal planes. 3-D MIPS images are created and assessed. IV contrast was administered without complication. All measurements were obtained according to NASCET criteria. A dose lowering technique was utilized adhering to the principles of ALARA. CT DOSE: 1131.04 mGy.cm FINDINGS: CT BRAIN: There is no acute intracranial hemorrhage, midline shift, hydrocephalus, intracr anial mass, territorial ischemia or abnormal extra-axial collections. No abnormal intra-axial or extra-axial enhancement. Mastoid air cells and middle ear cavities are clear. No calvarial fracture. Minimal polypoid mucosal thickening of the maxillary sinuses.. CT ANGIOGRAM OF THE HEAD AND NECK: Three-vessel morphology of the thoracic aortic arch. There is patency of the innominate and image subclavian arteries. The common and internal carotid arteries are widely patent. The bilateral anterior and middle cerebral arteries are also patent. Dominant right vertebral artery is widely patent. The left vertebral artery is developmentally diminutive and demonstrates areas of high- grade stenosis within the distal V2 segment with distal reconstitution of flow within the V3 and V4 segments. The Dural sinuses appear patent. Lung apices are clear. No pneumothorax. Unremarkable soft tissues. Degenerative changes of the spine. IMPRESSION: 1. No acute intracranial abnormality. 2. Unremarkable CTA of the head. 3. The developmentally diminutive left vertebral artery demonstrates age indeterminate areas of high-grade stenosis within the distal V2 segment. ACT 112: Negative or not required by law. The above report was generated using voice recognition software. It may contain grammatical, syntax or spelling errors. Electronically signed by: Aldo Dangelo M.D. 07/04/2024 12:[address] 07/04/24 10:19 CT angio head w con, CT angio neck with con, CT head/brain wo con CLINICAL HISTORY: 59 years-old Male with gutierrez, seizure like activity, RUE weakness. Seizure-like activity COMPARISON STUDY: Brain MRI 08/21/2022 TECHNIQUE: Unenhanced axial CT scan of the brain is performed. Subsequently, following the IV administration of 119 cc of Optiray, CT angiogram of the head and neck was performed from the aortic arch to the skull apex. Images are reviewed in the axial, sagittal, and coronal planes. 3-D MIPS images are created and assessed. IV contrast was administered without complication. All measurements were obtained according to NASCET criteria. A dose lowering technique was utilized adhering to the principles of ALARA. CT DOSE: 1131.04 mGy.cm FINDINGS: CT BRAIN: There is no acute intracranial hemorrhage, midline shift, hydrocephalus, intracranial mass, territorial ischemia or abnormal extra-axial collections. No abnormal intra-axial or extra-axial enhancement. Mastoid air cells and middle ear cavities are clear. No calvarial fracture. Minimal polypoid mucosal thickening of the maxillary sinuses.. CT ANGIOGRAM OF THE HEAD AND NECK: Three-vessel morphology of the thoracic aortic arch. There is patency of the innominate and image subclavian arteries. The common and internal carotid arteries are widely patent. The bilateral anterior and middle cerebral arteries are also patent. Dominant right vertebral artery is widely patent. The left vertebral artery is developmentally diminutive and demonstrates areas of high- grade stenosis within the distal V2 segment with distal reconstitution of flow within the V3 and V4 segments. The Dural sinuses appear patent. Lung apices are clear. No pneumothorax. Unremarkable soft tissues. Degenerative changes of the spine. IMPRESSION: 1. No acute intracranial abnormality. 2. Unremarkable CTA of the head. 3. The developmentally diminutive left vertebral artery demonstrates age indeterminate areas of high-grade stenosis within the distal V2 segment. ACT 112: Negative or not required by law. The above report was generated using voice recognition software. It may contain grammatical, syntax or spelling errors. Electronically signed by: Aldo Dangelo M.D. 07/04/2024 12:05 PM Hand X-Ray 07/04/24 12:27 XR hand RT min 3V routine HISTORY: 59 years-old Male 4th finger pain, swelling acute right hand pain COMPARISON: None TECHNIQUE: 3 views of the right hand FINDINGS: Multifocal osteoarthritis, severe within the triscaphe and first carpometacarpal joints with adjacent chronic appearing corticated ossifications/fragmented osteophytes. Mild soft tissue swelling of the second through fourth fingers. No acute fracture, dislocation, osseous erosion or opaque foreign body. IMPRESSION: 1. Mild soft tissue swelling without acute osseous abnormality. 2. 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 ACT 112: Negative or not required by law. The above report was generated using voice recognition software. It may contain grammatical, syntax or spelling errors. Electronically signed by: Aldo Dangelo M.D. 07/04/2024 12:57 PM
[2024-07-04] MEDS: GADOBUTROL 30ML VIAL IV ONE (16:54)
[2024-07-04] MEDS ORDERED: ACETAMINOPHEN 500 MG TAB PO PRN (17:06)
[2024-07-04] MEDS ORDERED: GLUCOSE 10 TAB/TUBE PO PRN (17:06)
[2024-07-04] MEDS ORDERED: CARBOHYDRATES FOR HYPOGLYCEMIA PO PRN (17:06)
[2024-07-04] MEDS ORDERED: GLUCAGON FOR INJ 1 MG VIAL SQ PRN (17:06)
[2024-07-04] MEDS ORDERED: GLUCOSE 40% GEL 15 GM TUBE PO PRN (17:06)
[2024-07-04] MEDS ORDERED: DEXTROSE 50% 50 ML SYRINGE IV PRN (17:06)
--- NOTE | 2024-07-04 17:49 | Magnetic Resonance Report ---
EXAM: MR brain wo/w con CLINICAL HISTORY: Abnormal head and extremity movements. TECHNIQUE: MRI of the brain was performed with and without intravenous contrast administration. Sequences obtained include pre-contrast and post-contrast T1-weighted, T2-weighted, FLAIR (Fluid-Attenuated Inversion Recovery), DWI (Diffusion-Weighted Imaging), and ADC (Apparent Diffusion Coefficient) sequences. 9cc gadavist was administered intravenously. Images were sent through PACS for diagnostic interpretation. COMPARISON: Comparison is made with prior CT and MRI imaging studies dated 02/05/2023 and 08/21/2022 FINDINGS: Brain Parenchyma: Tiny right frontal focus of a faint high FLAIR signal is noted, possibly nonspecifi,c possibly tiny ischemic focus. otherwise no areas of altered signal were noted. No evidence of acute infarction or hemorrhage. Goss-white matter differentiation is preserved. Normal comparable size and signal of temporal lobes. Post-Contrast Findings: No abnormal enhancement of the brain parenchyma or meninges. Ventricles and Sulci: Stable brain involutional changes are evident by prominent ventricles and extra-axial CSF spaces. Brainstem and Cerebellum: Normal appearance of the brainstem and cerebellum without focal lesions or abnormal enhancement. Vessels: Intracranial vessels appear normal without evidence of vascular malformations. medialized cavernous segments of ICAs are seen mildly bulging within sella turcica (variant). Skull and Calvarium: No evidence of skull vault lesions or abnormal marrow signal within the calvarium. IMPRESSION: 1. Stable appearance since prior studies. no acute abnormalities. 2. Stable brain involutional changes. 3. Tiny right frontal focus of a faint high FLAIR signal, possibly nonspecific possibly tiny ischemic focus. 4. Normal comparable size and signal of temporal lobes. 5. No evidence of acute intracranial pathology or abnormal contrast enhancement. Electronically signed by Sky Hernández 07-04-2024 5:49 PM
[2024-07-04] MEDS: INSULIN ASPART PER UNIT CHARGE SC SCH (18:45)
[2024-07-04] MEDS: COLCHICINE 0.6 MG TAB PO SCH (19:32)
[2024-07-04] MEDS: TOPIRAMATE 50 MG TAB PO SCH (19:32)
[2024-07-04] MEDS: HEPARIN SOD 5,000 UNIT/0.5 ML VIAL SQ SCH (19:32)
[2024-07-04] MEDS: allopurinoL 300 MG TAB PO SCH (19:32)
[2024-07-05 10:32] LABS: Basophils # (auto) 0.11 K/uL (0.00-0.20); Basophils % (auto) 1.1 %; Eosinophils # (auto) 0.41 K/uL (0.00-0.50); Eosinophils % (auto) 3.9 %; Hematocrit (blood only) 43.3 % (42.0-52.0); Hemoglobin 14.1 g/dl (14.0-18.0); Immature Granulocytes # (auto) 0.07 K/uL (0.01-0.20); Immature Granulocytes % (auto) 0.7 %; Lymphocytes # (auto) 2.03 K/uL (1.20-3.40); Lymphocytes % (auto) 19.4 %; Mean Corpuscular Hemoglobin 27.2 pg (25.0-34.0); Mean Corpuscular Hgb Conc 32.6 g/dL (32.0-36.0); Mean Corpuscular Volume 83.4 fL (80.0-100.0); Monocytes # (auto) 1.32 K/uL (0.11-0.59); Monocytes % (auto) 12.6 %; Neutrophils # (auto) 6.53 K/uL (1.40-6.50); Neutrophils % (auto) 62.3 %; Platelet Count 205 K/uL (130-400); RDW Coefficient of Variation 14.2 % (11.5-14.5); RDW Standard Deviation 43.5 fL (36.4-46.3); Red Blood Count 5.19 M/uL (4.70-6.10); White Blood Count 10.47 K/ul (4.8-10.8)
--- NOTE | 2024-07-05 10:40 | Neurology Consultation ---
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 This can be caused by mulitple things, but i would start with an MRI. Plan -- EEG read pending, but unlikely to show a cause -- recommend MRI T-spine with and without contrast -- Recommend starting Keppra 500 mg BID -- outpatient neurology follow up at d/c Telehealth Consultation Telehealth Information Telehealth Information: I performed this visit using a real-time telehealth connection between my location and the patients location ([facility]). After connecting through interactive tele-video, patient was identified by name and date of and/or wristband check.Patient (or authorized healthcare sales representative leather goods) was informed that this was a telemedicine visit and it was being conducted confidentially over secure lines. My office door was closed and no one else was present in the room with me.Patient (or authorized healthcare sales representative leather goods) provided consent to proceed with the visit, expressed an understanding of privacy and security of the telemedicine visit, and gave permission to have a hospital sales representative leather goods in the room in order to assist with the visit and to conduct portions of the visit, as needed. I informed the patient (or authorized healthcare sales representative leather goods) that I reviewed their record and presented the opportunity for them to ask any questions regarding the visit today. The patient agreed to participate. History of Present Illness Reason for Consultation: abnormal movements Attending Physician: Yves Brar MD History of Present Illness Zackary Zhou is a 59M with a PMH of chronic migraines, tobacco abuse, who presents with abnormal movements. He reports that over the last year he has had these episodes of muscle spasms in his abdomen when lying down. These used to be rare but has increased in frequency over the last week. They only occur when lying down and very rarely when sitting; not when standing, or walking. He was taking Topamax for migraines but stopped this in March. He denies back pain, bladder/bowel changes, leg weakness or numbness. He describes the movements as tightening on the right side of his abdomen which was worsened when lying on the right. He denies any other symptoms or recent trauma. Allergies Allergy/AdvReac Type Severity Reaction Status Date / Time indomethacin Allergy Severe INDOCIN Verified 07/04/24 12:29 THROAT SWELLING SEVERE REACTION prednisone Allergy Mild "CORTICOSTEROID Unverified 07/04/24 12:29 PSYCHOSIS" warfarin AdvReac Unknown DIFFICULTY Verified 07/04/24 12:29 REGULATING LEVELS Home Medications Medication Instructions Recorded Confirmed Type allopurinol 300 mg tablet 300 mg PO DAILY 08/21/22 07/04/24 History colchicine 0.6 mg tablet 0.6 mg PO BID 08/21/22 07/04/24 History acetaminophen 500 mg tablet 500 mg PO Q6H PRN Headache 07/04/24 07/04/24 History Patient History Medical History Ulnar neuropathy HSV-2 infection BPH (benign prostatic hyperplasia) Esophageal dysphagia Schatzki's ring History of Clostridioides difficile infection Chronic rhinitis Gout Surgical History History of elbow surgery S/P left knee arthroscopy H/O nasal septoplasty History of bilateral knee arthroplasty H/O umbilical hernia repair History of shoulder surgery Family History Mother Cancer Social History Smoking Status: Current every day smoker Tobacco Type: Cigarettes Hx Alcohol Use: No Hx Substance Use: No Preferred Language: Khmer Communication Ability: Effective [employer] Required: No Current Living Situation: Alone Other Information That Helps Us Care for You: No Feels Safe at Home: Yes Safety Concerns: Feels Safe At This Time Assistive Devices: Glasses Review of Systems see HPI Physical Exam NEUROLOGIC EXAMINATION: Mental Status:alert, oriented to time, place, person, normal recent memory, normal remote memory, normal attention span, normal concentration, normal language, and normal fund of knowledge Cranial Nerves: CN 2 - no visual defect on confrontation and pupils round, equal, reactive to light CN 3, 4, 6 - extra-ocular movements intact and no nystagmus CN 5 - facial sensation intact CN 7 - no facial asymmetry CN 8 - intact hearing CN 9, 10 - palate symmetric, normal gag CN 11 - good shoulder shrug CN 12 - tongue midline MOTOR: Strength was at least antigravity throughout, Pronator drift was absent, and There were no abnormal movements SENSATION: intact and symmetric to pinprick, light touch, vibration and joint position GAIT: stable, no ataxia, and can perform tandem walking COORDINATION: no ataxia with finger to nose testing and heel to mcnulyt testing REFLEXES: cannot assess over telemedicine Event - semi-rhythmic abdominal contractions Results & Data Vital Signs (Past 12 Hours) Vital Signs Temp Pulse Pulse Resp BP Pulse Ox O2 Del Method 07/05/24 09:06 85 07/05/24 07:47 37.0 C 76 16 120/83 96 Room Air 07/05/24 02:38 37.5 C 80 16 99/62 L 91 Room Air 07/05/24 00:00 75 07/04/24 23:05 37.9 C H 82 16 101/63 93 Room Air Laboratory Results Abnormal Lab Results 07/04/24 07/04/24 07/04/24 10:35 10:40 20:28 WBC 12.83 H RBC 5.48 Hgb 15.0 Hct 45.0 MCV 82.1 MCH 27.4 MCHC 33.3 RDW Std Deviation 41.4 RDW Coeff of Humberto 14.3 Plt Count 227 MPV 10.9 Immature Gran % (Auto) 0.5 Neut % (Auto) 75.7 Lymph % (Auto) 10.8 Larue % (Auto) 9.1 Eos % (Auto) 3.0 Baso % (Auto) 0.9 Neut # (Auto) 9.71 H Lymph # (Auto) 1.39 Larue # (Auto) 1.17 H Eos # (Auto) 0.38 Baso # (Auto) 0.11 Immature Gran # (Auto) 0.07 PT 10.7 INR 1.0 Sodium 136 Potassium 3.6 Chloride 100 Carbon Dioxide 27 Anion Gap 9 BUN 14 Creatinine 1.03 Est Cr Clr Drug Dosing 85.4 eGFR 84.20 BUN/Creatinine Ratio 13.6 Glucose 185 H POC Glucose 112 H Uric Acid 8.2 H Calcium 9.5 Magnesium 1.8 Total Bilirubin 0.6 AST 14 ALT 24 Alkaline Phosphatase 63 Troponin I High Sens 3.6 Total Protein 7.4 Albumin 4.3 Globulin 3.1 Albumin/Globulin Ratio 1.4 Lipase 25 Vitamin B12 402 Folate 17.82 Procalcitonin 0.07 TSH 3.713 Urine Color Urine Appearance Urine pH Ur Specific [place] Urine Protein Urine Glucose (UA) Urine Ketones Urine Blood Urine Nitrite Urine Bilirubin Urine Urobilinogen Ur Leukocyte Esterase Urine WBC (Auto) Urine RBC (Auto) U Hyaline Cast (Auto) U Epithel Cells (Auto) Urine Bacteria (Auto) Urine Opiates Screen Ur Methadone, Qual Urine Fentanyl Screen Urine Barbiturates Ur Phencyclidine (PCP) U Amphetamin/Meth Scrn MDMA (Ecstasy) Screen U Benzodiazepines Scrn Ur Cocaine Metabolite U Marijuana (THC) Screen Ethyl Alcohol mg/dL < 10.0 Adenovirus (PCR) Not Detected Anaplasma Smear See Comment Babesia Smear See Comment B. pertussis DNA (PCR) Not Detected B.parapertussis DNA PCR Not Detected Lyme Disease Screen Equivocal H Lyme Tier 2 IgG Confirm Negative Lyme Tier 2 IgM Confirm Negative C. pneumoniae DNA (PCR) Not Detected Coronavirus OC43 (PCR) Not Detected Coronavirus HKU1 (PCR) Not Detected Coronavirus 229E (PCR) Not Detected SARS-CoV-2 (PCR) Not Detected Coronavirus NL63 (PCR) Not Detected Monoscreen Negative Human Metapneumovir PCR Not Detected Influenza Type A (PCR) Not Detected Influenza Type B (PCR) Not Detected M. pneumoniae (PCR) Not Detected Parainfluenza 1 (PCR) Not Detected Parainfluenza 2 (PCR) Not Detected Parainfluenza 3 (PCR) Not Detected Parainfluenza 4 (PCR) Not Detected RSV (PCR) Not Detected Entero/Rhino (PCR) Not Detected 07/04/24 07/05/24 07/05/24 Unknown 08:01 10:00 WBC 10.47 RBC 5.19 Hgb 14.1 Hct 43.3 MCV 83.4 MCH 27.2 MCHC 32.6 RDW Std Deviation 43.5 RDW Coeff of Humberto 14.2 Plt Count 205 MPV 11.0 Immature Gran % (Auto) 0.7 Neut % (Auto) 62.3 Lymph % (Auto) 19.4 Larue % (Auto) 12.6 Eos % (Auto) 3.9 Baso % (Auto) 1.1 Neut # (Auto) 6.53 H Lymph # (Auto) 2.03 Larue # (Auto) 1.32 H Eos # (Auto) 0.41 Baso # (Auto) 0.11 Immature Gran # (Auto) 0.07 PT INR Sodium Potassium Chloride Carbon Dioxide Anion Gap BUN Creatinine Est Cr Clr Drug Dosing eGFR BUN/Creatinine Ratio Glucose POC Glucose 122 H Uric Acid Calcium Magnesium Total Bilirubin AST ALT Alkaline Phosphatase Troponin I High Sens Total Protein Albumin Globulin Albumin/Globulin Ratio Lipase Vitamin B12 Folate Procalcitonin TSH Urine Color Yellow Urine Appearance Clear Urine pH 6.0 Ur Specific [place] 1.007 Urine Protein Negative Urine Glucose (UA) Negative Urine Ketones Negative Urine Blood 2+ H Urine Nitrite Negative Urine Bilirubin Negative Urine Urobilinogen Negative Ur Leukocyte Esterase 2+ H Urine WBC (Auto) 21-50 H Urine RBC (Auto) 6-10 H U Hyaline Cast (Auto) 0-2 U Epithel Cells (Auto) 0-2 Urine Bacteria (Auto) None Seen Urine Opiates Screen Neg Ur Methadone, Qual Neg Urine Fentanyl Screen Neg Urine Barbiturates Neg Ur Phencyclidine (PCP) Neg U Amphetamin/Meth Scrn Neg MDMA (Ecstasy) Screen Neg U Benzodiazepines Scrn Neg Ur Cocaine Metabolite Neg U Marijuana (THC) Screen Neg Ethyl Alcohol mg/dL Adenovirus (PCR) Anaplasma Smear Babesia Smear B. pertussis DNA (PCR) B.parapertussis DNA PCR Lyme Disease Screen Lyme Tier 2 IgG Confirm Lyme Tier 2 IgM Confirm C. pneumoniae DNA (PCR) Coronavirus OC43 (PCR) Coronavirus HKU1 (PCR) Coronavirus 229E (PCR) SARS-CoV-2 (PCR) Coronavirus NL63 (PCR) Monoscreen Human Metapneumovir PCR Influenza Type A (PCR) Influenza Type B (PCR) M. pneumoniae (PCR) Parainfluenza 1 (PCR) Parainfluenza 2 (PCR) Parainfluenza 3 (PCR) Parainfluenza 4 (PCR) RSV (PCR) Entero/Rhino (PCR) Diagnostic Findings Head CTA 07/04/24 10:18 CT angio head w con, CT angio neck with con, CT head/brain wo con CLINICAL HISTORY: 59 years-old Male with gutierrez, seizure like activity, RUE weakness. Seizure-like activity COMPARISON STUDY: Brain MRI 08/21/2022 TECHNIQUE: Unenhanced axial CT scan of the brain is performed. Subsequently, following the IV administration of 119 cc of Optiray, CT angiogram of the head and neck was performed from the aortic arch to the skull apex. Images are reviewed in the axial, sagittal, and coronal planes. 3-D MIPS images are created and assessed. IV contrast was administered without complication. All measurements were obtained according to NASCET criteria. A dose lowering technique was utilized adhering to the principles of ALARA. CT DOSE: 1131.04 mGy.cm FINDINGS: CT BRAIN: There is no acute intracranial hemorrhage, midline shift, hydrocephalus, intracranial mass, territorial ischemia or abnormal extra-axial collections. No abnormal intra-axial or extra-axial enhancement. Mastoid air cells and middle ear cavities are clear. No calvarial fracture. Minimal polypoid mucosal thickening of the maxillary sinuses.. CT ANGIOGRAM OF THE HEAD AND NECK: Three-vessel morphology of the thoracic aortic arch. There is patency of the innominate and image subclavian arteries. The common and internal carotid arteries are widely patent. The bilateral anterior and middle cerebral arteries are also patent. Dominant right vertebral artery is widely patent. The left vertebral artery is developmentally diminutive and demonstrates areas of high- grade stenosis within the distal V2 segment with distal reconstitution of flow within the V3 and V4 segments. The Dural sinuses appear patent. Lung apices are clear. No pneumothorax. Unremarkable soft tissues. Degenerative changes of the spine. IMPRESSION: 1. No acute intracranial abnormality. 2. Unremarkable CTA of the head. 3. The developmentally diminutive left vertebral artery demonstrates age indeterminate areas of high-grade stenosis within the distal V2 segment. ACT 112: Negative or not required by law. The above report was generated using voice recognition software. It may contain grammatical, syntax or spelling errors. Electronically signed by: Aldo Dangelo M.D. 07/04/2024 12:05 PM Neck CTA 07/04/24 10:18 CT angio head w con, CT angio neck with con, CT head/brain wo con CLINICAL HISTORY: 59 years-old Male with gutierrez, seizure like activity, RUE weakness. Seizure-like activity COMPARISON STUDY: Brain MRI 08/21/2022 TECHNIQUE: Unenhanced axial CT scan of the brain is performed. Subsequently, following the IV administration of 119 cc of Optiray, CT angiogram of the head and neck was performed from the aortic arch to the skull apex. Images are reviewed in the axial, sagittal, and coronal planes. 3-D MIPS images are created and assessed. IV contrast was administered without complication. All measurements were obtained according to NASCET criteria. A dose lowering technique was utilized adhering to the principles of ALARA. CT DOSE: 1131.04 mGy.cm FINDINGS: CT BRAIN: There is no acute intracranial hemorrhage, midline shift, hydrocephalus, intracranial mass, territorial ischemia or abnormal extra-axial collections. No abnormal intra-axial or extra-axial enhancement. Mastoid air cells and middle ear cavities are clear. No calvarial fracture. Minimal polypoid mucosal thickening of the maxillary sinuses.. CT ANGIOGRAM OF THE HEAD AND NECK: Three-vessel morphology of the thoracic aortic arch. There is patency of the innominate and image subclavian arteries. The common and internal carotid arteries are widely patent. The bilateral anterior and middle cerebral arteries are also patent. Dominant right vertebral artery is widely patent. The left vertebral artery is developmentally diminutive and demonstrates areas of high- grade stenosis within the distal V2 segment with distal reconstitution of flow within the V3 and V4 segments. The Dural sinuses appear patent. Lung apices are clear. No pneumothorax. Unremarkable soft tissues. Degenerative changes of the spine. IMPRESSION: 1. No acute intracranial abnormality. 2. Unremarkable CTA of the head. 3. The developmentally diminutive left vertebral artery demonstrates age indeterminate areas of high-grade stenosis within the distal V2 segment. ACT 112: Negative or not required by law. The above report was generated using voice recognition software. It may contain grammatical, syntax or spelling errors. Electronically signed by: Aldo Dangelo M.D. 07/04/2024 12:[address] 07/04/24 10:19 CT angio head w con, CT angio neck with con, CT head/brain wo con CLINICAL HISTORY: 59 years-old Male with gutierrez, seizure like activity, RUE weakness. Seizure-like activity COMPARISON STUDY: Brain MRI 08/21/2022 TECHNIQUE: Unenhanced axial CT scan of the brain is performed. Subsequently, following the IV administration of 119 cc of Optiray, CT angiogram of the head and neck was performed from the aortic arch to the skull apex. Images are reviewed in the axial, sagittal, and coronal planes. 3-D MIPS images are created and assessed. IV contrast was administered without complication. All measurements were obtained according to NASCET criteria. A dose lowering technique was utilized adhering to the principles of ALARA. CT DOSE: 1131.04 mGy.cm FINDINGS: CT BRAIN: There is no acute intracranial hemorrhage, midline shift, hydrocephalus, intracranial mass, territorial ischemia or abnormal extra-axial collections. No abnormal intra-axial or extra-axial enhancement. Mastoid air cells and middle ear cavities are clear. No calvarial fracture. Minimal polypoid mucosal thickening of the maxillary sinuses.. CT ANGIOGRAM OF THE HEAD AND NECK: Three-vessel morphology of the thoracic aortic arch. There is patency of the innominate and image subclavian arteries. The common and internal carotid a rteries are widely patent. The bilateral anterior and middle cerebral arteries are also patent. Dominant right vertebral artery is widely patent. The left vertebral artery is developmentally diminutive and demonstrates areas of high- grade stenosis within the distal V2 segment with distal reconstitution of flow within the V3 and V4 segments. The Dural sinuses appear patent. Lung apices are clear. No pneumothorax. Unremarkable soft tissues. Degenerative changes of the spine. IMPRESSION: 1. No acute intracranial abnormality. 2. Unremarkable CTA of the head. 3. The developmentally diminutive left vertebral artery demonstrates age indeterminate areas of high-grade stenosis within the distal V2 segment. ACT 112: Negative or not required by law. The above report was generated using voice recognition software. It may contain grammatical, syntax or spelling errors. Electronically signed by: Aldo Dangelo M.D. 07/04/2024 12:05 PM Hand X-Ray 07/04/24 12:27 XR hand RT min 3V routine HISTORY: 59 years-old Male 4th finger pain, swelling acute right hand pain COMPARISON: None TECHNIQUE: 3 views of the right hand FINDINGS: Multifocal osteoarthritis, severe within the triscaphe and first carpometacarpal joints with adjacent chronic appearing corticated ossifications/fragmented osteophytes. Mild soft tissue swelling of the second through fourth fingers. No acute fracture, dislocation, osseous erosion or opaque foreign body. IMPRESSION: 1. Mild soft tissue swelling without acute osseous abnormality. 2. 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 ACT 112: Negative or not required by law. The above report was generated using voice recognition software. It may contain grammatical, syntax or spelling errors. Electronically signed by: Aldo Dangelo M.D. 07/04/2024 12:57 PM Brain MRI 07/04/24 15:11 EXAM: MR brain wo/w con CLINICAL HISTORY: Abnormal head and extremity movements. TECHNIQUE: MRI of the brain was performed with and without intravenous contrast administration. Sequences obtained include pre-contrast and post-contrast T1-weighted, T2-weighted, FLAIR (Fluid-Attenuated Inversion Recovery), DWI (Diffusion-Weighted Imaging), and ADC (Apparent Diffusion Coefficient) sequences. 9cc gadavist was administered intravenously. Images were sent through PACS for diagnostic interpretation. COMPARISON: Comparison is made with prior CT and MRI imaging studies dated 02/05/2023 and 08/21/2022 FINDINGS: Brain Parenchyma: Tiny right frontal focus of a faint high FLAIR signal is noted, possibly nonspecifi,c possibly tiny ischemic focus. otherwise no areas of altered signal were noted. No evidence of acute infarction or hemorrhage. Goss-white matter differentiation is preserved. Normal comparable size and signal of temporal lobes. Post-Contrast Findings: No abnormal enhancement of the brain parenchyma or meninges. Ventricles and Sulci: Stable brain involutional changes are evident by prominent ventricles and extra-axial CSF spaces. Brainstem and Cerebellum: Normal appearance of the brainstem and cerebellum without focal lesions or abnormal enhancement. Vessels: Intracranial vessels appear normal without evidence of vascular malformations. medialized cavernous segments of ICAs are seen mildly bulging within sella turcica (variant). Skull and Calvarium: No evidence of skull vault lesions or abnormal marrow signal within the calvarium. IMPRESSION: 1. Stable appearance since prior studies. no acute abnormalities. 2. Stable brain involutional changes. 3. Tiny right frontal focus of a faint high FLAIR signal, possibly nonspecific possibly tiny ischemic focus. 4. Normal comparable size and signal of temporal lobes. 5. No evidence of acute intracranial pathology or abnormal contrast enhancement. Electronically signed by Sky Hernández 07-04-2024 5:49 PM
[2024-07-05 10:47] LABS: Estimated Average Glucose 126 mg/dl
[2024-07-05] MEDS: levETIRAcetam 500 MG TAB PO SCH (10:50)
[2024-07-05 11:01] LABS: Albumin Globulin Ratio 1.3 (0.9-2); BUN Creatinine Ratio 12.7 (10-20); Bilirubin,Total 0.4 mg/dl (0.2-1.0); Calcium 9.1 mg/dl (8.6-10.3); Chol HDL Ratio 4.1 (0-5); Creatinine Clr Calc Pharmacy 79.9 ml/min; Magnesium 2.1 mg/dl (1.7-2.4); Phosphorus 2.4 mg/dl (2.5-4.9); Potassium 3.8 mmol/L (3.5-5.1)
[2024-07-05 11:20] VITALS: RESP 20
[2024-07-05] MEDS: LORazepam 2 MG/1 ML VIAL IV PRN (12:20)
[2024-07-05] MEDS: GADOBUTROL 65ML VIAL IV ONE (13:37)
--- NOTE | 2024-07-05 13:51 | Magnetic Resonance Report ---
MRI OF THE THORACIC SPINE WITH AND WITHOUT CONTRAST CLINICAL HISTORY: Myoclonic jerks. COMPARISON: Chest CT October 24, 2010. TECHNIQUE: Utilizing a 3 Amber magnet and dedicated coil, multiplanar, multiecho imaging of the thor acic spine was performed before and after the intravenous administration of Gadavist. FINDINGS: Alignment of the thoracic spine is anatomic. This exam is mildly compromised by artifact bu t is diagnostic. Vertebral body heights are maintained. There is no marrow edema or marrow replacemen t. Thoracic cord signal and caliber are normal. There is no intracanalicular mass, fluid collection o r abnormal enhancement. No disc herniations are identified. The central canal and neural foramen are patent. Paravertebral soft tissues are unremarkable. A hiatal hernia with partially intrathoracic sto mach is incidentally noted. IMPRESSION: 1. Unremarkable MRI of the thoracic spine. 2. Normal thoracic cord signal and caliber. 3. No disc herniations within the thoracic spine. Patent central canal and neural foramen. 4. Hiatal hernia. ACT 112: Negative or not required by law. Electronically signed by: Daniel Ortiz M.D. 07/05/2024 1:50 PM
--- NOTE | 2024-07-05 14:32 | Hospitalist Progress Note ---
Date of Service July 05, 2024 Assessment & Plan (1) Seizure-like activity: Plan Pt is a 59yoM with PMHx significant for gout, GERD, Schatzki's ring s/p dilation, BPH, hx of chronic headaches/migraines previously on topamax, recurrent concussions, recent nasal polyp removal who presents for evaluation of abnormal head and extremity jerks that have been increasing in frequency. 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 no acute abnormalities. Stable brain involutional changes. Tiny right frontal focus of a faint high FLAIR signal, possibly nonspecific possibly tiny ischemic focus. Normal comparable size and signal of temporal lobes. No evidence of acute intracranial pathology or abnormal contrast enhancemen --Head/Neck CTA:No acute intracranial abnormality. Unremarkable CTA of the head. The developmentally diminutive left vertebral artery demonstrates age indeterminate areas of high-grade stenosis within the distal V2 segment. --Thoracic Spine MRI: Unremarkable MRI of the thoracic spine. Normal thoracic cord signal and caliber. No disc herniations within the thoracic spine. Patent central canal and neural foramen. Hiatal hernia. --EEG:pending -- Continue home Topamax -- Started on Keppra 500 mg twice a day as recommended by neurology --Monitor for any seizure activity Needs follow-up with neurology on discharge Acute Gout --Hand X ray:Mild soft tissue swelling without acute osseous abnormality. 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 -- Uric acid level 8.2 -- Continue home allopurinol, colchicine -- Patient has intolerance to prednisone in the past --Usually gets steroid injections post aspiration of joint per patient --Consult orthopedics Stenosis L vertebral artery CTA as above Will defer to vascular surgery as outpatient for further management Possible UTI Urine cx pending Empirically on Rocephin Prediabetes HbA1c 6.0 DVT Px: Heparin SQ CODE STATUS: DNR/DNI Admission and Anticipated Discharge Date Admission Date: July 04, 2024 Subjective Patient is seen and examined at bedside States having right fourth digit swelling, pain, tenderness Also reports involuntary jerking movements Family at bedside Denies any chest pain, dyspnea, nausea, vomiting, abdominal pain Discussed with neurology today Review of Systems Review of Systems: All systems reviewed & are unremarkable except as noted in Subjective Physical Exam Physical Exam: Physical Exam: Vitals signs as noted above General Appearance:Moderately built and nourished, no apparent distress Head: normocephalic, Atraumatic Eyes: normal inspection, EOMI Neck: supple, Trachea midline Respiratory/Chest: Normal breath sounds, CTA, No accessory muscle use Cardiovascular: S1, S2, No murmur Abdomen/GI:Soft, Non tender, Bowel sounds present Extremities/Musculoskeletal:normal inspection, no edema Neurologic/Psych:AAOX3, grossly no focal neurological deficits,+ Jerks Skin: normal color, warm Results & Data Results & Data Vital Signs (Past 12 Hours) Vital Signs Temp Pulse Pulse Resp BP Pulse Ox O2 Del Method 07/05/24 11:20 36.8 C 67 20 125/82 95 Room Air 07/05/24 09:06 85 07/05/24 07:47 37.0 C 76 16 120/83 96 Room Air 07/05/24 02:38 37.5 C 80 16 99/62 L 91 Room Air Laboratory Results Short CBC 07/05/24 Range/Units 10:00 WBC 10.47 (4.8-10.8) K/ul Hgb 14.1 (14.0-18.0) g/dl Hct 43.3 (42.0-52.0) % Plt Count 205 (130-400) K/uL BMP 07/05/24 10:00 Sodium 139 Potassium 3.8 Chloride 104 Carbon Dioxide 27 BUN 14 Creatinine 1.10 Glucose 139 H Calcium 9.1 Liver Function 07/05/24 Range/Units 10:00 Total Bilirubin 0.4 (0.2-1.0) mg/dl AST 15 (13-39) U/L ALT 19 (7-52) U/L Alkaline Phosphatase 57 (34-104) U/L Albumin 4.0 (3.4-5.0) gm/dl
[2024-07-05 16:00] VITALS: BP 119/82; PULSE 90; TEMP 98.8; O2SAT 91
[2024-07-05] MEDS: cefTRIAXone SODIUM 2,000 MG/50 ML BAG IV SCH (16:33)
--- NOTE | 2024-07-05 16:44 | Orthopedic Consultation ---
Date of Service July 05, 2024 Assessment & Plan (1) Gout: I recommend aspirating his finger today and he agrees with proceeding with this. I only got a few drops of blood out but there was some particulate matter present, possibly from gout. I did not get any pus out. He apparently does not tolerate oral prednisone. We discussed steroid injections. I will discuss this with Dr. Quiroga prior to injection. We will hold off with order any antiinflammatory as he is on heparin. Will continue to follow. History of Present Illness Reason for Consultation: . Requesting Physician: . Attending Physician: Yves Brar MD . 59 year old patient admitted with seizure activity, history of chronic gout, complaining of pain and swelling in the right ring finger x 2 days. Denies any injury. He feels that this is from gout based on similar episodes in the past. Has seen other provider and had multiple areas aspirated and injected due to gout in the past, including his fingers. Allergies Allergy/AdvReac Type Severity Reaction Status Date / Time indomethacin Allergy Severe INDOCIN Verified 07/04/24 12:29 THROAT SWELLING SEVERE REACTION prednisone Allergy Mild "CORTICOSTEROID Unverified 07/04/24 12:29 PSYCHOSIS" warfarin AdvReac Unknown DIFFICULTY Verified 07/04/24 12:29 REGULATING LEVELS Home Medications Medication Instructions Recorded Confirmed Type allopurinol 300 mg tablet 300 mg PO DAILY 08/21/22 07/04/24 History colchicine 0.6 mg tablet 0.6 mg PO BID 08/21/22 07/04/24 History acetaminophen 500 mg tablet 500 mg PO Q6H PRN Headache 07/04/24 07/04/24 History Past Med/Surg History Problem List Segmental cord myoclonus Tobacco abuse (Acute) Acute UTI (urinary tract infection) (Acute) Dehydration (Acute) Seizure-like activity (Acute) Orthostasis Left eye pain Acute right-sided weakness (Acute) Headache (Acute) Dizziness (Acute) Headache Esophageal dysphagia Schatzki's ring Gout (Chronic) Medical History Ulnar neuropathy HSV-2 infection BPH (benign prostatic hyperplasia) History of Clostridioides difficile infection Chronic rhinitis Surgical History History of elbow surgery S/P left knee arthroscopy H/O nasal septoplasty History of bilateral knee arthroplasty H/O umbilical hernia repair History of shoulder surgery Family History Mother Cancer Social History Smoking Status: Current every day smoker Tobacco Type: Cigarettes Hx Alcohol Use: No Hx Substance Use: No Preferred Language: Azeri Communication Ability: Effective Assortment Planner Required: No Current Living Situation: Alone Feels Safe at Home: Yes Assistive Devices: None Review of Systems All systems reviewed & are unremarkable except as noted in HPI & below. Physical Exam . alert and oriented. NAD Right hand: +erythema and swelling over the volar side of the proximal phalanx of the ring finger. +tenderness to palpation. Skin intact. Limited motion of the ring finger, but is able to slightly flex at the DIP joint, able to extend the finger. No erythema proximal to the MCP area. He does have some dorsal swelling of the hand/mcp area. Results & Data Results & Data Laboratory Results . Diagnostic Findings .xrays reviewed of the right hand and show arthritic changes of the 1st CMC joint, STT arthritis, and 3rd MCP joint arthritis. PG Care Time/CCT Total # of Minutes Spent Total Time Spent with Patient: Total time spent is greater than 50% in coordination of care (as documented) at patient's floor/unit and/or counseling patient: Coding Level of Care Code 98432 IN/OBS CONSULT LVL 3,45M Diagnoses Gout M10.9
--- NOTE | 2024-07-07 08:23 | Discharge Summary ---
Date of Service July 07, 2024 Admission HPI Per Admitting Provider Pt is a 59yoM with PMHx significant for gout, GERD, Schatzki's ring s/p dilation, BPH, hx of chronic headaches/migraines previously on topamax, recurrent concussions, recent nasal polyp removal who presents for evaluation of abnormal head and extremity jerks that have been increasing in frequency. History obtained from pt and at bedside. They note that he has been having the occasional head/neck jerks and extremity jerking, (lower extremity> upper extremity) for the past year but it has been increasing in frequency over the past 2-3 days. He notes that it usually occurs when he is falling asleep, sometimes wakes him up from sleep. States he knows when it is about to happen, it starts with tensing in his abdominal area before progressing. Denies associated tongue biting or urinary incontinence. Denies a ssociated loss of consciousness. No recent tick bites. Notes he had nasal surgery in March and since then was told to discontinue all his medications. States that he recently resumed his home allopurinol and cochicine. Notes a frequent left sided congregational headache. Denies N/V. Notes photobia and phonophobia at times. [place] a [place]. 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 Acute Gout Left Vertebral artery stenosis Discharge Data Allergies Allergy/AdvReac Type Severity Reaction Status Date / Time indomethacin Allergy Severe INDOCIN Verified 07/04/24 12:29 THROAT SWELLING SEVERE REACTION prednisone Allergy Mild "CORTICOSTEROID Unverified 07/04/24 12:29 PSYCHOSIS" warfarin AdvReac Unknown DIFFICULTY Verified 07/04/24 12:29 REGULATING LEVELS Consultations 07/04/24 14:12 ED Decision to Admit Stat 07/04/24 15:13 Consult Neurology Routine 07/05/24 10:50 Consult Orthopedic Surgery Routine Procedures Performed Laboratory Results WBC 10.47 K/ul (4.8-10.8) 07/05/24 10:00 RBC 5.19 M/uL (4.70-6.10) 07/05/24 10:00 Hgb 14.1 g/dl (14.0-18.0) 07/05/24 10:00 Hct 43.3 % (42.0-52.0) 07/05/24 10:00 MCV 83.4 fL (80.0-100.0) 07/05/24 10:00 MCH 27.2 pg (25.0-34.0) 07/05/24 10:00 MCHC 32.6 g/dL (32.0-36.0) 07/05/24 10:00 RDW Std Deviation 43.5 fL (36.4-46.3) 07/05/24 10:00 RDW Coeff of Humberto 14.2 % (11.5-14.5) 07/05/24 10:00 Plt Count 205 K/uL (130-400) 07/05/24 10:00 MPV 11.0 fL (9.4-12.4) 07/05/24 10:00 Immature Gran % (Auto) 0.7 % 07/05/24 10:00 Neut % (Auto) 62.3 % 07/05/24 10:00 Lymph % (Auto) 19.4 % 07/05/24 10:00 [place] % (Auto) 12.6 % 07/05/24 10:00 Eos % (Auto) 3.9 % 07/05/24 10:00 Baso % (Auto) 1.1 % 07/05/24 10:00 Neut # (Auto) 6.53 K/uL (1.40-6.50) H 07/05/24 10:00 Lymph # (Auto) 2.03 K/uL (1.20-3.40) 07/05/24 10:00 [place] # (Auto) 1.32 K/uL (0.11-0.59) H 07/05/24 10:00 Eos # (Auto) 0.41 K/uL (0.00-0.50) 07/05/24 10:00 Baso # (Auto) 0.11 K/uL (0.00-0.20) 07/05/24 10:00 Immature Gran # (Auto) 0.07 K/uL (0.01-0.20) 07/05/24 10:00 PT 10.7 Seconds (9.0-12.0) 07/04/24 10:35 INR 1.0 (0.9-1.1) 07/04/24 10:35 Sodium 139 mmol/L (136-145) 07/05/24 10:00 Potassium 3.8 mmol/L (3.5-5.1) 07/05/24 10:00 Chloride 104 mmol/L (98-107) 07/05/24 10:00 Carbon Dioxide 27 mmol/L (21-32) 07/05/24 10:00 Anion Gap 8 (3-11) 07/05/24 10:00 BUN 14 mg/dl (6-23) 07/05/24 10:00 Creatinine 1.10 mg/dl (0.6-1.4) 07/05/24 10:00 Est Cr Clr Drug Dosing 79.9 ml/min 07/05/24 10:00 eGFR 77.81 07/05/24 10:00 BUN/Creatinine Ratio 12.7 (10-20) 07/05/24 10:00 Glucose 139 mg/dl (70-99(Fasting)) H 07/05/24 10:00 POC Glucose 122 mg/dl (70-99) H 07/05/24 08:01 Estimat Average Glucose 126 mg/dl 07/05/24 10:00 Hemoglobin A1c 6.0 % (4.5-5.6) H 07/05/24 10:00 Uric Acid 8.2 mg/dl (2.6-7.2) H 07/04/24 10:35 Calcium 9.1 mg/dl (8.6-10.3) 07/05/24 10:00 Phosphorus 2.4 mg/dl (2.5-4.9) L 07/05/24 10:00 Magnesium 2.1 mg/dl (1.7-2.4) 07/05/24 10:00 Total Bilirubin 0.4 mg/dl (0.2-1.0) 07/05/24 10:00 AST 15 U/L (13-39) 07/05/24 10:00 ALT 19 U/L (7-52) 07/05/24 10:00 Alkaline Phosphatase 57 U/L (34-104) 07/05/24 10:00 Troponin I High Sens 3.6 pg/ml (0-20) 07/04/24 10:35 Total Protein 7.0 gm/dl (6.0-8.3) 07/05/24 10:00 Albumin 4.0 gm/dl (3.4-5.0) 07/05/24 10:00 Globulin 3.0 gm/dl (2.5-4.0) 07/05/24 10:00 Albumin/Globulin Ratio 1.3 (0.9-2) 07/05/24 10:00 Triglycerides 220 mg/dl (0-150) H 07/05/24 10:00 Cholesterol 164 mg/dl (0-200) 07/05/24 10:00 LDL Cholesterol, Calc 80 mg/dl 07/05/24 10:00 VLDL Cholesterol, Calc 44 mg/dl (0-30) H 07/05/24 10:00 HDL Cholesterol 40 mg/dl 07/05/24 10:00 Cholesterol/HDL Ratio 4.1 (0-5) 07/05/24 10:00 Lipase 25 U/L (11-82) 07/04/24 10:35 Vitamin B12 402 pg/ml (180-914) 07/04/24 10:35 Folate 17.82 ng/ml (>5.38) 07/04/24 10:35 Procalcitonin 0.07 ng/ml (0-0.5) 07/04/24 10:35 TSH 3.713 uIu/ml (0.300-4.500) 07/04/24 10:35 Urine Color Yellow 07/04/24 Unknown Urine Appearance Clear (Clear) 07/04/24 Unknown Urine pH 6.0 (4.5-7.5) 07/04/24 Unknown Ur Specific [place] 1.007 (1.000-1.030) 07/04/24 Unknown Urine Protein Negative (Negative) 07/04/24 Unknown Urine Glucose (UA) Negative (Negative) 07/04/24 Unknown Urine Ketones Negative (Negative) 07/04/24 Unknown Urine Blood 2+ (Negative) H 07/04/24 Unknown Urine Nitrite Negative (Negative) 07/04/24 Unknown Urine Bilirubin Negative (Negative) 07/04/24 Unknown Urine Urobilinogen Negative (Negative) 07/04/24 Unknown Ur Leukocyte Esterase 2+ (Negative) H 07/04/24 Unknown Urine WBC (Auto) 21-50 /hpf (0-5) H 07/04/24 Unknown Urine RBC (Auto) 6-10 /hpf (0-2) H 07/04/24 Unknown U Hyaline Cast (Auto) 0-2 /lpf (0-2) 07/04/24 Unknown U Epithel Cells (Auto) 0-2 /hpf (0-2) 07/04/24 Unknown Urine Bacteria (Auto) None Seen (None Seen) 07/04/24 Unknown Urine Opiates Screen Neg (Neg) 07/04/24 Unknown Ur Methadone, Qual Neg (Neg) 07/04/24 Unknown Urine Fentanyl Screen Neg (Neg) 07/04/24 Unknown Urine Barbiturates Neg (Neg) 07/04/24 Unknown Ur Phencyclidine (PCP) Neg (Neg) 07/04/24 Unknown U Amphetamin/Meth Scrn Neg (Neg) 07/04/24 Unknown MDMA (Ecstasy) Screen Neg (Neg) 07/04/24 Unknown U Benzodiazepines Scrn Neg (Neg) 07/04/24 Unknown Ur Cocaine Metabolite Neg (Neg) 07/04/24 Unknown U Marijuana (THC) Screen Neg (Neg) 07/04/24 Unknown Ethyl Alcohol mg/dL < 10.0 mg/dl (<10.0) 07/04/24 10:35 Adenovirus (PCR) Not Detected (NotDetected) 07/04/24 10:40 Anaplasma Smear See Comment 07/04/24 10:35 Babesia Smear See Comment 07/04/24 10:35 B. pertussis DNA (PCR) Not Detected (NotDetected) 07/04/24 10:40 B.parapertussis DNA PCR Not Detected (NotDetected) 07/04/24 10:40 Lyme Disease Screen Equivocal (Negative) H 07/04/24 10:35 Lyme Tier 2 IgG Confirm Negative (Negative) 07/04/24 10:35 Lyme Tier 2 IgM Confirm Negative (Negative) 07/04/24 10:35 C. pneumoniae DNA (PCR) Not Detected (NotDetected) 07/04/24 10:40 Coronavirus OC43 (PCR) Not Detected (NotDetected) 07/04/24 10:40 Coronavirus HKU1 (PCR) Not Detected (NotDetected) 07/04/24 10:40 Coronavirus 229E (PCR) Not Detected (NotDetected) 07/04/24 10:40 SARS-CoV-2 (PCR) Not Detected (NotDetected) 07/04/24 10:40 Coronavirus NL63 (PCR) Not Detected (NotDetected) 07/04/24 10:40 Monoscreen Negative (Negative) 07/04/24 10:35 Human Metapneumovir PCR Not Detected (NotDetected) 07/04/24 10:40 Influenza Type A (PCR) Not Detected (NotDetected) 07/04/24 10:40 Influenza Type B (PCR) Not Detected (NotDetected) 07/04/24 10:40 M. pneumoniae (PCR) Not Detected (NotDetected) 07/04/24 10:40 Parainfluenza 1 (PCR) Not Detected (NotDetected) 07/04/24 10:40 Parainfluenza 2 (PCR) Not Detected (NotDetected) 07/04/24 10:40 Parainfluenza 3 (PCR) Not Detected (NotDetected) 07/04/24 10:40 Parainfluenza 4 (PCR) Not Detected (NotDetected) 07/04/24 10:40 RSV (PCR) Not Detected (NotDetected) 07/04/24 10:40 Entero/Rhino (PCR) Not Detected (NotDetected) 07/04/24 10:40 Impressions Head CTA 07/04/24 10:18 CT angio head w con, CT angio neck with con, CT head/brain wo con CLINICAL HISTORY: 59 years-old Male with gutierrez, seizure like activity, RUE weakness. Seizure-like activity COMPARISON STUDY: Brain MRI 08/21/2022 TECHNIQUE: Unenhanced axial CT scan of the brain is performed. Subsequently, following the IV administration of 119 cc of Optiray, CT angiogram of the head and neck was performed from the aortic arch to the skull apex. Images are reviewed in the axial, sagittal, and coronal planes. 3-D MIPS images are created and assessed. IV contrast was administered without complication. All measurements were obtained according to NASCET criteria. A dose lowering technique was utilized adhering to the principles of ALARA. CT DOSE: 1131.04 mGy.cm FINDINGS: CT BRAIN: There is no acute intracranial hemorrhage, midline shift, hydrocephalus, intracranial mass, territorial ischemia or abnormal extra-axial collections. No abnormal intra-axial or extra-axial enhancement. Mastoid air cells and middle ear cavities are clear. No calvarial fracture. Minimal polypoid mucosal thickening of the maxillary sinuses.. CT ANGIOGRAM OF THE HEAD AND NECK: Three-vessel morphology of the thoracic aortic arch. There is patency of the innominate and image subclavian arteries. The common and internal carotid arteries are widely patent. The bilateral anterior and middle cerebral arteries are also patent. Dominant right vertebral artery is widely patent. The left vertebral artery is developmentally diminutive and demonstrates areas of high- grade stenosis within the distal V2 segment with distal reconstitution of flow within the V3 and V4 segments. The Dural sinuses appear patent. Lung apices are clear. No pneumothorax. Unremarkable soft tissues. Degenerative changes of the spine. IMPRESSION: 1. No acute intracranial abnormality. 2. Unremarkable CTA of the head. 3. The developmentally diminutive left vertebral artery demonstrates age indeterminate areas of high-grade stenosis within the distal V2 segment. ACT 112: Negative or not required by law. The above report was generated using voice recognition software. It may contain grammatical, syntax or spelling errors. Electronically signed by: Aldo Dangelo M.D. 07/04/2024 12:05 PM Neck CTA 07/04/24 10:18 CT angio head w con, CT angio neck with con, CT head/brain wo con CLINICAL HISTORY: 59 years-old Male with gutierrez, seizure like activity, RUE weakness. Seizure-like activity COMPARISON STUDY: Brain MRI 08/21/2022 TECHNIQUE: Unenhanced axial CT scan of the brain is performed. Subsequently, following the IV administration of 119 cc of Optiray, CT angiogram of the head and neck was performed from the aortic arch to the skull apex. Images are reviewed in the axial, sagittal, and coronal planes. 3-D MIPS images are created and assessed. IV contrast was administered without complication. All measurements were obtained according to NASCET criteria. A dose lowering technique was utilized adhering to the principles of ALARA. CT DOSE: 1131.04 mGy.cm FINDINGS: CT BRAIN: There is no acute intracranial hemorrhage, midline shift, hydrocephalus, intracranial mass, territorial ischemia or abnormal extra-axial collections. No abnormal intra-axial or extra-axial enhancement. Mastoid air cells and middle ear cavities are clear. No calvarial fracture. Minimal polypoid mucosal thi ckening of the maxillary sinuses.. CT ANGIOGRAM OF THE HEAD AND NECK: Three-vessel morphology of the thoracic aortic arch. There is patency of the innominate and image subclavian arteries. The common and internal carotid arteries are widely patent. The bilateral anterior and middle cerebral arteries are also patent. Dominant right vertebral artery is widely patent. The left vertebral artery is developmentally diminutive and demonstrates areas of high- grade stenosis within the distal V2 segment with distal reconstitution of flow within the V3 and V4 segments. The Dural sinuses appear patent. Lung apices are clear. No pneumothorax. Unremarkable soft tissues. Degenerative changes of the spine. IMPRESSION: 1. No acute intracranial abnormality. 2. Unremarkable CTA of the head. 3. The developmentally diminutive left vertebral artery demonstrates age indeterminate areas of high-grade stenosis within the distal V2 segment. ACT 112: Negative or not required by law. The above report was generated using voice recognition software. It may contain grammatical, syntax or spelling errors. Electronically signed by: Aldo Dangelo M.D. 07/04/2024 12:[address] 07/04/24 10:19 CT angio head w con, CT angio neck with con, CT head/brain wo con CLINICAL HISTORY: 59 years-old Male with gutierrez, seizure like activity, RUE weakness. Seizure-like activity COMPARISON STUDY: Brain MRI 08/21/2022 TECHNIQUE: Unenhanced axial CT scan of the brain is performed. Subsequently, following the IV administration of 119 cc of Optiray, CT angiogram of the head and neck was performed from the aortic arch to the skull apex. Images are reviewed in the axial, sagittal, and coronal planes. 3-D MIPS images are created and assessed. IV contrast was administered without complication. All measurements were obtained according to NASCET criteria. A dose lowering technique was utilized adhering to the principles of ALARA. CT DOSE: 1131.04 mGy.cm FINDINGS: CT BRAIN: There is no acute intracranial hemorrhage, midline shift, hydrocephalus, intracranial mass, territorial ischemia or abnormal extra-axial collections. No abnormal intra-axial or extra-axial enhancement. Mastoid air cells and middle ear cavities are clear. No calvarial fracture. Minimal polypoid mucosal thickening of the maxillary sinuses.. CT ANGIOGRAM OF THE HEAD AND NECK: Three-vessel morphology of the thoracic aortic arch. There is patency of the innominate and image subclavian arteries. The common and internal carotid arteries are widely patent. The bilateral anterior and middle cerebral arteries are also patent. Dominant right vertebral artery is widely patent. The left vertebral artery is developmentally diminutive and demonstrates areas of high- grade stenosis within the distal V2 segment with distal reconstitution of flow within the V3 and V4 segments. The Dural sinuses appear patent. Lung apices are clear. No pneumothorax. Unremarkable soft tissues. Degenerative changes of the spine. IMPRESSION: 1. No acute intracranial abnormality. 2. Unremarkable CTA of the head. 3. The developmentally diminutive left vertebral artery demonstrates age in determinate areas of high-grade stenosis within the distal V2 segment. ACT 112: Negative or not required by law. The above report was generated using voice recognition software. It may contain grammatical, syntax or spelling errors. Electronically signed by: Aldo Dangelo M.D. 07/04/2024 12:05 PM Hand X-Ray 07/04/24 12:27 XR hand RT min 3V routine HISTORY: 59 years-old Male 4th finger pain, swelling acute right hand pain COMPARISON: None TECHNIQUE: 3 views of the right hand FINDINGS: Multifocal osteoarthritis, severe within the triscaphe and first carpometacarpal joints with adjacent chronic appearing corticated ossifications/fragmented osteophytes. Mild soft tissue swelling of the second through fourth fingers. No acute fracture, dislocation, osseous erosion or opaque foreign body. IMPRESSION: 1. Mild soft tissue swelling without acute osseous abnormality. 2. 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 ACT 112: Negative or not required by law. The above report was generated using voice recognition software. It may contain grammatical, syntax or spelling errors. Electronically signed by: Aldo Dangelo M.D. 07/04/2024 12:57 PM Brain MRI 07/04/24 15:11 EXAM: MR brain wo/w con CLINICAL HISTORY: Abnormal head and extremity movements. TECHNIQUE: MRI of the brain was performed with and without intravenous contrast administration. Sequences obtained include pre-contrast and post-contrast T1-weighted, T2-weighted, FLAIR (Fluid-Attenuated Inversion Recovery), DWI (Diffusion-Weighted Imaging), and ADC (Apparent Diffusion Coefficient) sequences. 9cc gadavist was administered intravenously. Images were sent through PACS for diagnostic interpretation. COMPARISON: Comparison is made with prior CT and MRI imaging studies dated 02/05/2023 and 08/21/2022 FINDINGS: Brain Parenchyma: Tiny right frontal focus of a faint high FLAIR signal is noted, possibly nonspecifi,c possibly tiny ischemic focus. otherwise no areas of altered signal were noted. No evidence of acute infarction or hemorrhage. Goss-white matter differentiation is preserved. Normal comparable size and signal of temporal lobes. Post-Contrast Findings: No abnormal enhancement of the brain parenchyma or meninges. Ventricles and Sulci: Stable brain involutional changes are evident by prominent ventricles and extra-axial CSF spaces. Brainstem and Cerebellum: Normal appearance of the brainstem and cerebellum without focal lesions or abnormal enhancement. Vessels: Intracranial vessels appear normal without evidence of vascular malformations. medialized cavernous segments of ICAs are seen mildly bulging within sella turcica (variant). Skull and Calvarium: No evidence of skull vault lesions or abnormal marrow signal within the calvarium. IMPRESSION: 1. Stable appearance since prior studies. no acute abnormalities. 2. Stable brain involutional changes. 3. Tiny right frontal focus of a faint high FLAIR signal, possibly nonspecific possibly tiny ischemic focus. 4. Normal comparable size and signal of temporal lobes. 5. No evidence of acute intracranial pathology or abnormal contrast enhancement. Electronically signed by Sky Hernández 07-04-2024 5:49 PM Thoracic Spine MRI 07/05/24 10:15 MRI OF THE THORACIC SPINE WITH AND WITHOUT CONTRAST CLINICAL HISTORY: Myoclonic jerks. COMPARISON: Chest CT October 24, 2010. TECHNIQUE: Utilizing a 3 Amber magnet and dedicated coil, multiplanar, multiecho imaging of the thoracic spine was performed before and after the intravenous administration of Gadavist. FINDINGS: Alignment of the thoracic spine is anatomic. This exam is mildly compromised by artifact but is diagnostic. Vertebral body heights are maintained. There is no marrow edema or marrow replacement. Thoracic cord signal and caliber are normal. There is no intracanalicular mass, fluid collection or abnormal enhancement. No disc herniations are identified. The central canal and neural foramen are patent. Paravertebral soft tissues are unremarkable. A hiatal hernia with partially intrathoracic stomach is incidentally noted. IMPRESSION: 1. Unremarkable MRI of the thoracic spine. 2. Normal thoracic cord signal and caliber. 3. No disc herniations within the thoracic spine. Patent central canal and neural foramen. 4. Hiatal hernia. ACT 112: Negative or not required by law. Electronically signed by: Daniel Ortiz M.D. 07/05/2024 1:50 PM Ordered Studies 07/04/24 10:18 CT angio head w con Stat CT angio neck with con Stat 07/04/24 10:19 CT head/brain wo con Stat 07/04/24 15:11 MRI Brain [MR brain wo/w con] Urgent 07/05/24 10:15 MRI Thoracic [MR thoracic spine wo/w con] Urgent Hospital Course (1) Seizure-like activity: Plan Pt is a 59yoM with PMHx significant for gout, GERD, Schatzki's ring s/p dilation, BPH, hx of chronic headaches/migraines previously on topamax, recurrent concussions, recent nasal polyp removal who presents for evaluation of abnormal head and extremity jerks that have been increasing in frequency. 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 no acute abnormalities. Stable brain involutional changes. Tiny right frontal focus of a faint high FLAIR signal, possibly nonspecific possibly tiny ischemic focus. Normal comparable size and signal of temporal lobes. No evidence of acute intracranial pathology or abnormal contrast enhancemen --Head/Neck CTA:No acute intracranial abnormality. Unremarkable CTA of the head. The developmentally diminutive left vertebral artery demonstrates age indetermi [place] areas of high-grade stenosis within the distal V2 segment. --Thoracic Spine MRI: Unremarkable MRI of the thoracic spine. Normal thoracic cord signal and caliber. No disc herniations within the thoracic spine. Patent central canal and neural foramen. Hiatal hernia. --EEG:pending -- Continue home Topamax -- Started on Keppra 500 mg twice a day as recommended by neurology --Monitor for any seizure activity Needs follow-up with neurology on discharge Patient Left AMA Acute Gout --Hand X ray:Mild soft tissue swelling without acute osseous abnormality. 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 -- Uric acid level 8.2 -- Continue home allopurinol, colchicine -- Patient has intolerance to prednisone in the past --Usually gets steroid injections post aspiration of joint per patient --Consult orthopedics Stenosis L vertebral artery CTA as above Will defer to vascular surgery as outpatient for further management Possible UTI Urine cx pending Empirically on Rocephin Prediabetes HbA1c 6.0 DVT Px: Heparin SQ CODE STATUS: DNR/DNI Disposition Left Against Medical Advice Total Time Total Time Spent Total Time Spent (In Minutes): 32 minutes Discharge Plan Discharge Items Patient Disposition: Against Medical Advice Reason For Visit: SEIZURE Activity: As commented below Non-emergency contact: Primary Care Provider Follow-up/Referrals: Desean Raymond MD [Primary Care Provider] - Pending Studies at Discharge: Yes Stand-Alone Forms: My [facility], Smoking Cessation Medications and DC Order Prescriptions: Continued allopurinol 300 mg tablet 300 mg PO DAILY colchicine 0.6 mg tablet 0.6 mg PO BID acetaminophen 500 mg Tablet 500 mg PO Q6H PRN (Reason: Headache) Discharge Orders: Left Against Medical Advice (Routine); Ordered 07/05/24 Ordered By: Cal Mena/Other Patient Handouts: Prediabetes, 5 Steps for Eating Healthier Admission Data Admit Date/Time: 07/04/24 14:16 Attending Provider: Yves Brar Admit Provider: Nilda Verde Primary Care Provider: Desean Raymond Other Providers: Javier Nieto
[2024-07-08 13:43] LABS: Babesia microti DNA Not Detected (Not Detected)
== END 2024-07-05 18:20 | disposition left against medical advice (07) | DRG 92 ==
LOC: ED 09:55 → SUATTDRO 14:16 → 2N 14:16